=== PATIENT | female | born 1945 | race Caucasian/White ===

== ENCOUNTER 2018-01-26 21:04 | Emergency (ER) | payer MEDICARE, OTHER ==
--- NOTE | 2018-01-26 21:43 | ED ---
Fall HPI - General Chief Complaint: Fall Stated Complaint: Left hip pain Time Seen by Provider: 01/26/18 21:08 Source: patient, EMS, RN notes reviewed Mode of arrival: EMS - History of Present Illness Initial Comments: This is a 72-year-old female who presents to the emergency department with chief complaint of fall injury. Patient had a fall last week at [facility] on the [place] where patient lives. She initially complained of no pain, however since that time she has been complaining of left hip pain. They tried to take x-rays this evening but was unable to because patient has a difficult time laying flat in bed due to chronic back pain. She was referred for transfer to the emergency department for evaluation and treatment of her left hip pain. Patient did receive a [place] at 8:30 this evening. Patient currently complains of left knee and left hip pain. Has no other complaints. Denies chest pain or shortness of breath, abdominal pain, nausea or vomiting, diarrhea or constipation, headache or dizziness. - Related Data Home Medications Medication Instructions Recorded Confirmed Gabapentin [Neurontin] 300 mg PO BID 06/01/14 01/26/18 NIFEdipine [NIFEdipine ER] 120 mg PO DAILY 06/01/14 01/26/18 Levothyroxine Sodium [Synthroid] 88 mcg PO MOWEFR 06/22/14 01/26/18 Phenytoin Sodium Extended 100 mg PO BID 06/22/14 01/26/18 [Dilantin] Acetaminophen Tab [Tylenol Tab] 650 mg PO Q8H PRN 01/26/18 01/26/18 Allopurinol [Zyloprim] 100 mg PO DAILY 01/26/18 01/26/18 Ammonium Lactate Lotion 1 applic TOPICAL HS 01/26/18 01/26/18 [Lac-Hydrin 12% Lotion] Aspirin 81 mg PO DAILY 01/26/18 01/26/18 Atorvastatin Calcium [Lipitor] 40 mg PO HS 01/26/18 01/26/18 Cholecalciferol (Vitamin D3) 2,000 unit PO DAILY 01/26/18 01/26/18 [Vitamin D3] Clotrimazole/Betamethasone Dip 1 applic TOPICAL Q12H 01/26/18 01/26/18 [Lotrisone Cream] Fluticasone Propionate [Flonase 1 spray EA NOSTRIL QAM 01/26/18 01/26/18 Allergy Relief] HYDROcodone/APAP 5-325MG [[place] 1 tab PO Q24H PRN 01/26/18 01/26/18 5-325] HYDROcodone/APAP 5-325MG [[place] 1 tab PO TID 01/26/18 01/26/18 5-325] Ipratropium [place] 0.06%Nasal 2 spray EA NOSTRIL Q24H PRN 01/26/18 01/26/18 [Atrovent Nasal 0.06%] Levothyroxine Sodium [Synthroid] 100 mcg PO SUTUTHSA 01/26/18 01/26/18 Lidocaine 5% Patch [Lidoderm] 1 patch TOPICAL DAILY 01/26/18 01/26/18 Lisinopril [Prinivil] 5 mg PO DAILY 01/26/18 01/26/18 Loperamide HCl [Imodium A-D] 2 mg PO Q24H PRN 01/26/18 01/26/18 Loratadine [Claritin] 10 mg PO DAILY 01/26/18 01/26/18 Methyl Salicylate/Menthol 1 patch TOPICAL QAM 01/26/18 01/26/18 [Salonpas Patch] Miconazole Nitrate [Lotrimin AF 1 applic TOPICAL BID 01/26/18 01/26/18 Powder] [place]-3 Fatty Acids [[place]-3] 1,000 mg PO BID 01/26/18 01/26/18 Omeprazole [PriLOSEC] 20 mg PO QAM 01/26/18 01/26/18 Potassium Chloride [Klor-Con 10] 10 meq PO DAILY 01/26/18 01/26/18 Sodium Chloride [[place]] 1 spray EA NOSTRIL TID PRN 01/26/18 01/26/18 Triad Hydrophilic Wound Dress 1 applic TOPICAL Q12H 01/26/18 01/26/18 Triamterene/Hydrochlorothiazid 2 tab PO QAM 01/26/18 01/26/18 [Triamterene-Hctz 37.5-25 mg Tb] Allergies Allergy/AdvReac Type Severity Reaction Status Date / Time codeine Allergy Unknown Verified 06/22/14 14:03 Sulfa (Sulfonamide Allergy Unknown Verified 01/26/18 21:55 Antibiotics) Review of Systems ROS Statement: Those systems with pertinent positive or pertinent negative responses have been documented in the HPI. ROS Other: All systems not noted in ROS Statement are negative. Past Medical History Past Medical History: CVA/TIA, Diabetes Mellitus, Hyperlipidemia, Hypertension, Seizure Disorder History of Any Multi-Drug Resistant Organisms: None Reported Past Surgical History: Orthopedic Surgery Additional Past Surgical History / Comment(s): right hip replacement Past Psychological History: No Psychological Hx Reported Smoking Status: Never smoker Past Alcohol Use History: None Reported Past Drug Use History: None Reported General Exam - General Exam Comments Initial Comments: General: Awake and alert, well-developed; in no apparent distress. HEENT: Head atraumatic, normocephalic. Pupils are equal, round and reactive to light. Extraocular movements intact. Oropharynx moist without erythema or exudate. Neck: Supple. Normal ROM. Cardiovascular: Regular rate and rhythm. No murmurs, rubs or gallops. Chest symmetrical. Respiratory: Lungs clear to auscultation bilaterally. No wheezes, rales or rhonchi. Normal respiratory effort with no use of accessory muscles. Abdomen: Soft, non-tender, non-distended. No rigidity, rebound or guarding. Normal bowel sounds in all 4 quadrants. Musculoskeletal: Limited range of motion of the left hip. There is tenderness on palpation of anterior left hip. There is tenderness on palpation of medial knee. Pain is elicited with flexion. No swelling, erythema or obvious gross deformities. Sensation is intact. Pedal pulses are 2+ equal and palpable bilaterally. Skin: [place], warm and dry without rashes or lesions. Neurological: Alert and oriented x3. Right hemiparesis. Right lower extremity in a brace. Limitations: language barrier, physical limitation Course Vital Signs 01/26/18 21:05 Temperature 97.4 F L Pulse Rate 80 Respiratory 18 Rate Blood Pressure 131/70 O2 Sat by Pulse 98 Oximetry Medical Decision Making - Medical Decision Making This is a 72-year-old female presents to the emergency department with chief complaint of fall injury. Patient sustained a fall last week. She complains of left hip as well as left knee pain. X-rays were obtained and were negative for any acute abnormalities. Patient's vital signs are stable and she is in no acute distress. She will be discharged back to [facility] on the [place]. Findings and plan were discussed with patient and son at bedside. They are in agreement and voices understanding. All questions were answered. - Radiology Data Radiology results: report reviewed X-ray bilateral hip and AP pelvis conclusion: No acute abnormality of the pelvis and both hips. X-ray left knee impression: Chondrocalcinosis. No fracture seen. No significant joint space narrowing. Disposition Clinical Impression: Contusion of left hip, Fall Disposition: HOME SELF-CARE Condition: Good Instructions: Fall Prevention for Older Adults (ED), Hip Contusion (ED) Additional Instructions: Please follow up with primary care provider within 1-2 days. Return to emergency department if symptoms should worsen or any concerns arise. Referrals: Wil Jimenez MD [Primary Care Provider] - 1-2 days Time of Disposition: 22:48
--- NOTE | 2018-01-26 22:31 | XR ---
EXAMINATION TYPE: XR Hip Bilateral and AP pelvis DATE OF EXAM: 01/26/2018 COMPARISON: NONE HISTORY: Hip pain TECHNIQUE: 5 views FINDINGS: The pelvic ring appears intact. There is a right hip nailing noted. The proximal left femur appears i ntact. Sacroiliac joints appear normal. I see no fracture. There is mild narrowing of hip joint space s. CONCLUSION: No acute abnormality of the pelvis and both hips.
--- NOTE | 2018-01-26 22:32 | XR ---
EXAMINATION TYPE: XR knee complete LT DATE OF EXAM: 01/26/2018 COMPARISON: NONE HISTORY: Knee pain TECHNIQUE: 3 views FINDINGS: There is calcification of the medial and lateral menisci. There is no sign of joint effusio n. There is spurring on the superior anterior patella. I see no fracture. IMPRESSION: Chondrocalcinosis. No fracture seen. No significant joint space narrowing.
[2018-01-26 23:23] VITALS: BP 114/67; PULSE 71; RESP 18; TEMP 97.6
== END 2018-01-26 23:30 | disposition home or self-care (01) ==
LOC: EC 21:04 → SUPCPDRO 21:04 → EC 23:30
DX: S70.02XA Contusion of left hip, initial encounter (principal); M25.562 Pain in left knee; E78.5 Hyperlipidemia, unspecified; I10 Essential (primary) hypertension; G40.909 Epilepsy, unspecified, not intractable, without status epilepticus; Z86.73 Personal history of transient ischemic attack (TIA), and cerebral infarction without residual deficits; Z79.82 Long term (current) use of aspirin; Z79.51 Long term (current) use of inhaled steroids; Z79.52 Long term (current) use of systemic steroids; Z79.891 Long term (current) use of opiate analgesic; Z79.899 Other long term (current) drug therapy; Z88.5 Allergy status to narcotic agent; Z88.2 Allergy status to sulfonamides; W19.XXXA Unspecified fall, initial encounter; Y92.129 Unspecified place in nursing home as the place of occurrence of the external cause
CPT/HCPCS: 73521; 99283

== ENCOUNTER 2018-04-06 12:50 | Inpatient (IN) | payer MEDICARE, OTHER ==
[2018-04-06] MEDS ORDERED: PANTOPRAZOLE 40 MG/10 ML VIAL IVP STA (12:55)
[2018-04-06] MEDS ORDERED: SODIUM CHLORIDE 0.9% 1,000 ML IV STA ×2 (12:55→14:37)
--- NOTE | 2018-04-06 12:59 | ED ---
GI Bleed HPI - General Stated complaint: GI Bleed Time Seen by Provider: 04/06/18 12:54 - History of Present Illness Initial comments: Patient sent to the emergency department for weakness, syncope and GI bleed. Patient does not answer any questions secondary to chronic medical conditions and mental disability. She cannot provide any further information. EMS states only that they were called for a patient down, with GI bleed. - Related Data Home Medications Medication Instructions Recorded Confirmed Gabapentin [Neurontin] 300 mg PO BID@0900,1700 06/01/14 04/06/18 NIFEdipine [NIFEdipine ER] 120 mg PO DAILY@0906/01/14 04/06/18 Phenytoin Sodium Extended 100 mg PO BID@0900,0 06/22/14 04/06/18 [Dilantin] Acetaminophen Tab [Tylenol Tab] 650 mg PO Q8H PRN 01/26/18 04/06/18 Allopurinol [Zyloprim] 100 mg PO DAILY@0901/26/18 04/06/18 Ammonium Lactate Lotion 1 applic TOPICAL HS 01/26/18 04/06/18 [Lac-Hydrin 12% Lotion] Aspirin 81 mg PO DAILY@89901/26/18 04/06/18 Atorvastatin Calcium [Lipitor] 40 mg PO HS@2100 01/26/18 04/06/18 Cholecalciferol (Vitamin D3) 2,000 unit PO DAILY@89901/26/18 04/06/18 [Vitamin D3] Fluticasone Propionate [Flonase 1 spray EA NOSTRIL DAILY@89901/26/18 04/06/18 Allergy Relief] Ipratropium [place] 0.06%Nasal 2 spray EA NOSTRIL Q24H PRN 01/26/18 04/06/18 [Atrovent Nasal 0.06%] Levothyroxine Sodium [Synthroid] 100 mcg PO DAILY@89901/26/18 04/06/18 Lidocaine 5% Patch [Lidoderm] 1 patch TOPICAL DAILY@89901/26/18 04/06/18 Lisinopril [Prinivil] 5 mg PO DAILY@0900 01/26/18 04/06/18 Loperamide HCl [Imodium A-D] 2 mg PO Q24H PRN 01/26/18 04/06/18 Loratadine [Claritin] 10 mg PO DAILY@0900 01/26/18 04/06/18 Methyl Salicylate/Menthol 1 patch TOPICAL QAM@0900 01/26/18 04/06/18 [Salonpas Patch] Miconazole Nitrate [Lotrimin AF 1 applic TOPICAL BID 01/26/18 04/06/18 Powder] [place]-3 Fatty Acids [[place]-3] 1,000 mg PO BID@0900,2100 01/26/18 04/06/18 Omeprazole [PriLOSEC] 20 mg PO DAILY@0900 01/26/18 04/06/18 Potassium Chloride [Klor-Con 10] 10 meq PO DAILY@0900 01/26/18 04/06/18 Sodium Chloride [[place]] 1 spray EA NOSTRIL TID PRN 01/26/18 04/06/18 Triad Hydrophilic Wound Dress 1 applic TOPICAL Q12H 01/26/18 04/06/18 Triamterene/Hydrochlorothiazid 2 tab PO QAM@0900 01/26/18 04/06/18 [Triamterene-Hctz 37.5-25 mg Tb] HYDROcodone/APAP 10-325MG [[place] 1 tab PO Q8H PRN 04/06/18 04/06/18 10-325] Allergies Allergy/AdvReac Type Severity Reaction Status Date / Time codeine Allergy Unknown Verified 04/06/18 13:40 Sulfa (Sulfonamide Allergy Unknown Verified 04/06/18 13:40 Antibiotics) Review of Systems ROS Statement: Those systems with pertinent positive or pertinent negative responses have been documented in the HPI. ROS Other: All systems not noted in ROS Statement are negative. Past Medical History Past Medical History: CVA/TIA, Diabetes Mellitus, Hyperlipidemia, Hypertension, Seizure Disorder History of Any Multi-Drug Resistant Organisms: None Reported Past Surgical History: Orthopedic Surgery Additional Past Surgical History / Comment(s): right hip replacement Past Psychological History: No Psychological Hx Reported Smoking Status: Never smoker Past Alcohol Use History: None Reported Past Drug Use History: None Reported General Exam Limitations: altered mental status General appearance: alert, obese Head exam: Present: atraumatic Eye exam: Present: normal appearance ENT exam: Present: normal exam Neck exam: Present: normal inspection Respiratory exam: Present: normal lung sounds bilaterally. Absent: respiratory distress Cardiovascular Exam: Present: regular rate GI/Abdominal exam: Present: distended, tenderness Rectal exam: Present: bloody stool Extremities exam: Present: normal inspection. Absent: tenderness Back exam: Present: normal inspection Neurological exam: Present: alert Psychiatric exam: Present: agitated Skin exam: Present: warm, dry Course Vital Signs 04/06/18 04/06/18 12:52 14:14 Temperature 100.5 F H Pulse Rate 82 88 Respiratory 18 18 Rate Blood Pressure 128/60 135/71 O2 Sat by Pulse 96 97 Oximetry Medical Decision Making - Medical Decision Making Workup for this patient reveals elevated white count, evidence of UTI, evidence of GI bleed. Patient will be admitted to the hospital. I did send blood cultures, and start the patient on antibiotics. - Lab Data Result diagrams: 04/06/18 14:00 04/06/18 13:50 Lab Results 04/06/18 04/06/18 04/06/18 Range/Units 13:00 13:20 13:50 WBC (3.8-10.6) k/uL RBC (3.80-5.40) m/uL Hgb (11.4-16.0) gm/dL Hct (34.0-46.0) % MCV (80.0-100.0) fL MCH (25.0-35.0) pg MCHC (31.0-37.0) g/dL RDW (11.5-15.5) % Plt Count (150-450) k/uL Neutrophils % (Manual) % Band Neutrophils % % Lymphocytes % (Manual) % Monocytes % (Manual) % Neutrophils # (Manual) (1.3-7.7) k/uL Lymphocytes # (Manual) (1.0-4.8) k/uL Monocytes # (Manual) (0-1.0) k/uL Nucleated RBCs (0-0) /100 WBC RBC Morphology PT (9.0-12.0) sec INR (<1.2) APTT (22.0-30.0) sec Sodium 140 (137-145) mmol/L Potassium 5.1 (3.5-5.1) mmol/L Chloride 104 (98-107) mmol/L Carbon Dioxide 18 L (22-30) mmol/L Anion Gap 18 mmol/L BUN 45 H (7-17) mg/dL Creatinine 1.20 H (0.52-1.04) mg/dL Est GFR (CKD-EPI)AfAm 52 (>60 ml/min/1.73 sqM) Est GFR (CKD-EPI)NonAf 45 (>60 ml/min/1.73 sqM) Glucose 135 H (74-99) mg/dL Plasma Lactic Acid Kurt (0.7-2.0) mmol/L Calcium 9.0 (8.4-10.2) mg/dL Magnesium 1.9 (1.6-2.3) mg/dL Total Bilirubin 0.6 (0.2-1.3) mg/dL AST 51 H (14-36) U/L ALT 56 H (9-52) U/L Alkaline Phosphatase 60 (38-126) U/L Ammonia (<30) umol/L Troponin I (0.000-0.034) ng/mL Total Protein 7.0 (6.3-8.2) g/dL Albumin 4.1 (3.5-5.0) g/dL Lipase 69 (23-300) U/L Urine Color Dark Yellow Urine Appearance Turbid H (Clear) Urine pH 5.0 (5.0-8.0) Ur Specific [place] 1.019 (1.001-1.035) Urine Protein 1+ H (Negative) Urine Glucose (UA) Negative (Negative) Urine Ketones Trace H (Negative) Urine Blood Moderate H (Negative) Urine Nitrite Negative (Negative) Urine Bilirubin 1+ H (Negative) Urine Urobilinogen 4.0 (<2.0) mg/dL Ur Leukocyte Esterase Large H (Negative) Urine WBC 157 H (0-5) /hpf Urine WBC Clumps Many H (None) /hpf Ur Squamous Epith Cells 8 H (0-4) /hpf Urine Bacteria Moderate H (None) /hpf Hyaline Casts 7 H (0-2) /lpf Urine Mucus Rare H (None) /hpf Stool Occult Blood Positive H (Negative) 04/06/18 04/06/18 04/06/18 Range/Units 13:50 14:00 14:00 WBC 20.9 H (3.8-10.6) k/uL RBC 4.92 (3.80-5.40) m/uL Hgb 15.0 (11.4-16.0) gm/dL Hct 46.2 H (34.0-46.0) % MCV 93.8 (80.0-100.0) fL MCH 30.5 (25.0-35.0) pg MCHC 32.6 (31.0-37.0) g/dL RDW 13.5 (11.5-15.5) % Plt Count 149 L (150-450) k/uL Neutrophils % (Manual) 63 % Band Neutrophils % 13 % Lymphocytes % (Manual) 6 % Monocytes % (Manual) 18 % Neutrophils # (Manual) 15.80 H (1.3-7.7) k/uL Lymphocytes # (Manual) 1.25 (1.0-4.8) k/uL Monocytes # (Manual) 3.76 H (0-1.0) k/uL Nucleated RBCs 0 (0-0) /100 WBC RBC Morphology Normal PT 10.0 (9.0-12.0) sec INR 1.0 (<1.2) APTT 20.5 L (22.0-30.0) sec Sodium (137-145) mmol/L Potassium (3.5-5.1) mmol/L Chloride (98-107) mmol/L Carbon Dioxide (22-30) mmol/L Anion Gap mmol/L BUN (7-17) mg/dL Creatinine (0.52-1.04) mg/dL Est GFR (CKD-EPI)AfAm (>60 ml/min/1.73 sqM) Est GFR (CKD-EPI)NonAf (>60 ml/min/1.73 sqM) Glucose (74-99) mg/dL Plasma Lactic Acid [place] (0.7-2.0) mmol/L Calcium (8.4-10.2) mg/dL Magnesium (1.6-2.3) mg/dL Total Bilirubin (0.2-1.3) mg/dL AST (14-36) U/L ALT (9-52) U/L Alkaline Phosphatase (38-126) U/L Ammonia (<30) umol/L Troponin I 1.050 H* (0.000-0.034) ng/mL Total Protein (6.3-8.2) g/dL Albumin (3.5-5.0) g/dL Lipase (23-300) U/L Urine Color Urine Appearance (Clear) Urine pH (5.0-8.0) Ur Specific [place] (1.001-1.035) Urine Protein (Negative) Urine Glucose (UA) (Negative) Urine Ketones (Negative) Urine Blood (Negative) Urine Nitrite (Negative) Urine Bilirubin (Negative) Urine Urobilinogen (<2.0) mg/dL Ur Leukocyte Esterase (Negative) Urine WBC (0-5) /hpf Urine WBC Clumps (None) /hpf Ur Squamous Epith Cells (0-4) /hpf Urine Bacteria (None) /hpf Hyaline Casts (0-2) /lpf Urine Mucus (None) /hpf Stool Occult Blood (Negative) 04/06/18 Range/Units 14:00 WBC (3.8-10.6) k/uL RBC (3.80-5.40) m/uL Hgb (11.4-16.0) gm/dL Hct (34.0-46.0) % MCV (80.0-100.0) fL MCH (25.0-35.0) pg MCHC (31.0-37.0) g/dL RDW (11.5-15.5) % Plt Count (150-450) k/uL Neutrophils % (Manual) % Band Neutrophils % % Lymphocytes % (Manual) % Monocytes % (Manual) % Neutrophils # (Manual) (1.3-7.7) k/uL Lymphocytes # (Manual) (1.0-4.8) k/uL Monocytes # (Manual) (0-1.0) k/uL Nucleated RBCs (0-0) /100 WBC RBC Morphology PT (9.0-12.0) sec INR (<1.2) APTT (22.0-30.0) sec Sodium (137-145) mmol/L Potassium (3.5-5.1) mmol/L Chloride (98-107) mmol/L Carbon Dioxide (22-30) mmol/L Anion Gap mmol/L BUN (7-17) mg/dL Creatinine (0.52-1.04) mg/dL Est GFR (CKD-EPI)AfAm (>60 ml/min/1.73 sqM) Est GFR (CKD-EPI)NonAf (>60 ml/min/1.73 sqM) Glucose (74-99) mg/dL Plasma Lactic Acid [place] 3.0 H* (0.7-2.0) mmol/L Calcium (8.4-10.2) mg/dL Magnesium (1.6-2.3) mg/dL Total Bilirubin (0.2-1.3) mg/dL AST (14-36) U/L ALT (9-52) U/L Alkaline Phosphatase (38-126) U/L Ammonia 15 (<30) umol/L Troponin I (0.000-0.034) ng/mL Total Protein (6.3-8.2) g/dL Albumin (3.5-5.0) g/dL Lipase (23-300) U/L Urine Color Urine Appearance (Clear) Urine pH (5.0-8.0) Ur Specific [place] (1.001-1.035) Urine Protein (Negative) Urine Glucose (UA) (Negative) Urine Ketones (Negative) Urine Blood (Negative) Urine Nitrite (Negative) Urine Bilirubin (Negative) Urine Urobilinogen (<2.0) mg/dL Ur Leukocyte Esterase (Negative) Urine WBC (0-5) /hpf Urine WBC Clumps (None) /hpf Ur Squamous Epith Cells (0-4) /hpf Urine Bacteria (None) /hpf Hyaline Casts (0-2) /lpf Urine Mucus (None) /hpf Stool Occult Blood (Negative) Disposition Clinical Impression: UTI (urinary tract infection), GI bleed Disposition: ADMITTED IP [facility] Condition: Serious Is patient prescribed a controlled substance at d/c from ED?: No Referrals: Wil Jimenez MD [Primary Care Provider] - 1-2 days
[2018-04-06] MEDS ORDERED: ACETAMINOPHEN SUPPOSITORY 650 MG SUPP RECTAL STA (13:06)
[2018-04-06 14:00] LABS: Appearance,Urine Turbid (Clear); Bacteria,Urine Moderate /hpf; Bilirubin,Urine 1+ (Negative); Blood,Urine Moderate (Negative); Color,Urine Dark Yellow; Glucose,Urine (UA) Negative (Negative); Hyaline Casts,Urine 7 /lpf (0-2); Ketones,Urine Trace (Negative); Leukocyte Esterase,Urine Large (Negative); Mucus,Urine Rare /hpf; Nitrite,Urine Negative (Negative); Protein,Urine 1+ (Negative); Specific Gravity,Urine 1.019 (1.001-1.035); Squamous Epithelial Cell,Urine 8 /hpf (0-4); WBC,Urine 157 /hpf (0-5)
[2018-04-06 14:18] LABS: HCT 46.2 % (34.0-46.0); MCH 30.5 pg (25.0-35.0); MCHC 32.6 g/dL (31.0-37.0); MCV 93.8 fL (80.0-100.0); Mean Platelet Volume 7.9; Platelet Count 149 k/uL (150-450); RBC 4.92 m/uL (3.80-5.40); RDW 13.5 % (11.5-15.5); WBC 20.9 k/uL (3.8-10.6)
--- NOTE | 2018-04-06 14:20 | XR ---
EXAMINATION TYPE: XR chest 1V portable DATE OF EXAM: 04/06/2018 COMPARISON: NONE HISTORY: Altered mental status, gastrointestinal bleeding TECHNIQUE: Single frontal view of the chest is obtained. FINDINGS: Patient is rotated. Lung volumes are low. Heart is enlarged. No evident airspace disease, pneumothorax, or pleural effusion. There are overlying cardiac leads. IMPRESSION: Rotated expiratory exam. Cardiomegaly. Follow-up as indicated.
[2018-04-06] MEDS: cefTRIAXone IN SWFI 1,000 MG/10 ML SYRINGE IVP SCH (14:24)
[2018-04-06 14:31] LABS: Albumin 4.1 g/dL (3.5-5.0); Magnesium 1.9 mg/dL (1.6-2.3); Total Bilirubin 0.6 mg/dL (0.2-1.3)
[2018-04-06 14:40] LABS: Potassium 5.1 mmol/L (3.5-5.1)
[2018-04-06 14:43] LABS: Band Neutrophils % 13 %; Lymphocytes # (M) 1.25 k/uL (1.0-4.8); Monocytes # (M) 3.76 k/uL (0-1.0); Neutrophils % (M) 63 %; Nucleated Red Blood Cells 0 /100 WBC (0-0); Total Cells Counted 100
[2018-04-06 14:46] LABS: Partial Thromboplastin Time 20.5 sec (22.0-30.0)
[2018-04-06] MEDS ORDERED: NALOXONE 0.4 MG/ML 1 ML VIAL IV PRN (15:08)
[2018-04-06] MEDS ORDERED: IPRATROPIUM BROMIDE 0.06% NASAL SPRAY (15 ML) EA NOSTRIL PRN (15:09)
--- NOTE | 2018-04-06 15:21 | CT ---
EXAMINATION TYPE: CT abdomen pelvis w con DATE OF EXAM: 04/06/2018 COMPARISON: NONE INDICATION: Per patient's chart, GI bleed. Poor historian. DLP: 1828 mGycm, Automated exposure control for dose reduction was used. CONTRAST: 80ml mL of Isovue 300. Study performed without Oral Contrast TECHNIQUE: Axial images were obtained from above the diaphragm to the pubic rami in the axial plane a t 5 mm thick sections. Reconstructed images are reviewed on the computer in the coronal plane. FINDINGS: Limited CT sections are obtained the lung bases. The lung bases are clear. Cardiomegaly is present. Small hiatal hernia is present. CT ABDOMEN: Liver: Normal Spleen: Normal Pancreas: Normal Adrenal glands: The adrenal glands are normal. Gallbladder: Normal Kidneys: No masses are evident. No hydronephrosis is present. No cysts are present. Delayed images were obtained through the kidneys, which remain unremarkable. Aorta: Vascular calcification is within the aorta. Inferior vena cava: Normal. CT PELVIS: Loops of bowel within the abdomen and pelvis are normal. Studies performed without oral contrast limiting the evaluation. Appendix: Not identified Urinary bladder: There is a 0.9 cm nodule within the posterior lateral right urinary bladder. Follow- up is recommended. Genitourinary structures: Uterus is normal. Adnexal regions are unremarkable Osseous structures: No suspicious lytic or sclerotic lesions. There is a lucency within the anterior left femoral neck may be a cyst. There is a hip pin on the right. Facet degenerative changes are at t he lumbar spine. IMPRESSIONS: 1. Possible nodule within the posterior lateral right urinary bladder. Additional evaluation is roberto mmended. Consider ultrasound. 2. Small hiatal hernia
[2018-04-06 17:09] LABS: Glucose,Whole Blood 117 mg/dL (75-99)
[2018-04-06] MEDS: PHENYTOIN SODIUM EXTENDED 100 MG CAP PO SCH (18:19)
[2018-04-06] MEDS: GABAPENTIN 300 MG CAP PO SCH (18:19)
[2018-04-06] MEDS: SODIUM CHLORIDE 0.9% 1,000 ML IV SCH (20:42)
[2018-04-06] MEDS: HYDROcodone/APAP 10-325MG 1 EACH TAB PO PRN (20:47)
[2018-04-06] MEDS: ATORVASTATIN 40 MG TAB PO SCH (20:47)
[2018-04-06] MEDS: AMMONIUM LACTATE 12% LOTION 225 GM BTL TOPICAL SCH (20:48)
[2018-04-06] MEDS: NYSTATIN 100,000 UNIT/GM POWD 15 GM TOPICAL SCH (20:49)
[2018-04-06 20:56] LABS: Glucose,Whole Blood 126 mg/dL (75-99)
[2018-04-07] MEDS: HYDROcodone/APAP 10-325MG 1 EACH TAB PO PRN ×3 (04:31→16:05)
--- NOTE | 2018-04-07 05:41 | HP ---
HISTORY AND PHYSICAL DATE OF ADMISSION: 04/06/2018 DATE OF SERVICE: 04/06/2018 PRESENTING COMPLAINT: Lower GI bleed. HISTORY OF PRESENTING COMPLAINT: This is a 73-year-old patient, resident of [facility], brought in by the EMS. The patient's chronic stable medical conditions include diabetes, GERD, hypertension, hyperlipidemia, seizure disorder, thyroid disorder. The patient has got a baseline dysarthria, , paralyzed on the right side. The patient is incontinent of both urine and stool and patient assist. The patient was sent in today because of bright red blood from rectal. No obvious abdominal pain. Patient is a resident of [facility]. Hence, patient was brought in. Like stated patient can only answer some simple questions, difficult to understand because of dysarthria. REVIEW OF SYSTEMS: Difficult to do because of dysarthria. PAST MEDICAL HISTORY: Stroke, diabetes, GERD, hyperlipidemia, hypertension, kidney disease, rheumatoid arthritis, seizure disorder, hypothyroid, weak on the right side, right ear tinnitus, wears Depends because of incontinence of urine and stool, gout, vitamin D deficiency, low back pain peripheral neuropathy, dysarthria. PAST SURGICAL HISTORY: Orthopedic surgery, tonsillectomy, right hip replacement, D and C. SOCIAL HISTORY: Lives at [facility], two person assist, some expressive dysphasia. Able to use a picture board. No smoking. No alcohol. FAMILY HISTORY: Family history of rheumatoid arthritis. HOME MEDICATIONS: 1. Triamterene hydrochlorothiazide 37.5/25 two tablets p.o. daily. 2. Triad hydrophilic wound dress topical q.12. 3. [place] 1 spray each nostril t.i.d. p.r.n. 4. Potassium 10 mEq p.o. daily. 5. Dilantin 100 mg p.o. b.i.d. 6. Prilosec 20 mg p.o. daily. 7. [place]-3 1000 mg p.o. b.i.d. 8. Nifedipine ER 120 mg p.o. daily. 9. Lotrimin AF topical b.i.d. 10.Salonpas patch topical daily. 11.Claritin 10 mg p.o. daily. 12.Loperamide 2 mg q.24. 13.Prinivil 5 mg p.o. daily. 14.Lidocaine 5% patch topically daily. 15.Synthroid 100 mcg p.o. daily. 16.Atrovent nasal 2 sprays each nostril q.24 hour. 17.[place] 10 one tablet q.8 p.r.n. 18.Neurontin 300 mg p.o. b.i.d. 19.Flonase 1 spray each nostril daily. 20.Vitamin D3, 2000 units p.o. daily. 21.Lipitor 40 mg p.o. q.h.s. 22.Aspirin 81 mg p.o. daily. 23.Lac-Hydrin 12% topical at bedtime. 24.Allopurinol 100 mg p.o. daily. 25.Tylenol 650 mg q.8 p.r.n. ALLERGIES: Allergies to CODEINE and SULFA. PHYSICAL EXAMINATION: On examination, temperature 101.9, pulse 92, respiration 18, blood pressure 136/58, pulse ox 96% on room air. GENERAL APPEARANCE: Well built, BMI 34, lying in bed. EYES: Pupils equal. Conjunctivae normal. HENT: External appearance of nose and ears normal. Oral cavity normal. NECK: JVD unable to assess. Mass not palpable. RESPIRATORY: Effort normal. LUNGS: Fair entry. CARDIOVASCULAR: First and second sounds normal. No edema. ABDOMEN: Soft, nontender. Liver and spleen not palpable. LYMPHATIC: No lymph node palpable in the next or axillae. PSYCHIATRY: Unable to assess. NEUROLOGICAL: Patient is dysarthric, difficulty finding words. Power on the right side is 4/5 with some contracture. INVESTIGATIONS: White count 20.9, hemoglobin 15. BUN 45, creatinine 1.20. Troponin 1.050. UA positive for leukocyte esterase, WBC. ASSESSMENT: 1. Acute urinary tract infection with sepsis, present on admission. 2. Lactic acidosis. 3. Dehydration with acute renal failure. 4. Acute lower gastrointestinal bleed. 5. Right hemiparesis from prior stroke. 6. Chronic expressive dysphasia. 7. Diabetes mellitus type 2. 8. Gastroesophageal reflux disease. 9. Hyperlipidemia. 10.Essential hypertension. 11.Chronic kidney disease, probably stage II. 12.Seizure disorder. 13.Hypothyroidism. 14.Medical debility, patient is a 2-person assist. 15.Osteoarthritis. PLAN: Patient is put on IV ceftriaxone. Home medications are resumed. GI is being consulted. The patient needs assistance with feeding and aspiration precautions. CT scan of the abdomen and pelvis nonspecific. Chest x-ray some cardiomegaly. MMODL / IJN: [id number] /
[2018-04-07 05:52] LABS: Glucose,Whole Blood 126 mg/dL (75-99)
[2018-04-07 07:15] LABS: Basophils % (A) 0 %; Eosinophils # (A) 0.1 k/uL (0-0.7); Eosinophils % (A) 1 %; HCT 40.4 % (34.0-46.0); HGB 13.1 gm/dL (11.4-16.0); Lymphocytes % (A) 7 %; MCH 31.3 pg (25.0-35.0); MCHC 32.4 g/dL (31.0-37.0); MCV 96.5 fL (80.0-100.0); Mean Platelet Volume 7.4; Monocytes % (A) 8 %; Neutrophils # (A) 11.5 k/uL (1.3-7.7); Neutrophils % (A) 83 %; Platelet Count 122 k/uL (150-450); RBC 4.19 m/uL (3.80-5.40); RDW 13.8 % (11.5-15.5); WBC 13.9 k/uL (3.8-10.6)
[2018-04-07 07:17] LABS: Calcium 8.6 mg/dL (8.4-10.2); Potassium 3.5 mmol/L (3.5-5.1)
[2018-04-07] MEDS ORDERED: TRIAMTERENE-HCTZ 37.5-25MG 1 EACH TAB PO SCH (09:00)
[2018-04-07] MEDS: SODIUM CHLORIDE 0.9% 1,000 ML IV SCH ×2 (09:13→23:13)
[2018-04-07] MEDS: NYSTATIN 100,000 UNIT/GM POWD 15 GM TOPICAL SCH ×2 (09:14→21:45)
[2018-04-07] MEDS: FLUTICASONE 50MCG/SPRAY NASAL 16GM EA NOSTRIL SCH (09:15)
[2018-04-07] MEDS: GABAPENTIN 300 MG CAP PO SCH ×2 (09:15→15:53)
[2018-04-07] MEDS: ALLOPURINOL 100 MG TAB PO SCH (09:15)
[2018-04-07] MEDS: LORATADINE 10 MG TAB PO SCH (09:15)
[2018-04-07] MEDS: LISINOPRIL 5 MG TAB PO SCH (09:16)
[2018-04-07] MEDS: LIDOCAINE 5% PATCH TOPICAL SCH (09:16)
[2018-04-07] MEDS: PANTOPRAZOLE 40 MG/10 ML VIAL IV SCH (09:17)
[2018-04-07] MEDS: LEVOTHYROXINE 100 MCG TAB PO SCH (09:18)
[2018-04-07] MEDS: PHENYTOIN SODIUM EXTENDED 100 MG CAP PO SCH ×2 (09:19→15:53)
--- NOTE | 2018-04-07 09:38 | P.CONS ---
History of Present Illness - Reason for Consult Consult date: 04/07/18 rectal bleeding Requesting physician: Krystian Orr - History of Present Illness History obtained from medical records nursing physician staff. 73-year-old female with a history of GERD, seizure disorder, hypertension, incontinent of urine and stool requires diaper, stroke hematemesis admitted from [facility] with reports of rectal bleeding. Admission hemoglobin 15 presently 13.1. White count 20.9 presently 13.9. INR 1.0. BUN 45. Creatinine 1.2. Troponin 1.0. Lactic acid 3.0 with hydration repeated decreased to 2.7. UA large leukocyte esterase and moderate blood many wbc's moderate bacteria. Hemoccult stool positive. CT abdomen possible nodule posterior lateral urinary bladder. Small hiatal hernia. ECF medications reviewed Prilosec 20 mg daily, baby aspirin, Imodium as needed. Review of Systems Unable to assess medical records reviewed for information Constitutional: Denies fever, chills, sweats, weight gain, or loss. HEENT: Negative for migraines, blurred vision or loss, earaches, drainage, tinnitus, oral mucosal lesions, dysphagia, or odynophagia. CARDIAC: Negative for chest pain, arrhythmias, or palpitation. RESPIRATORY: Negative for shortness of breath, hemoptysis, cough, or sputum production. GI: See HPI for pertinent findings. : Negative for hematuria, urgency, frequency, polyuria, or dysuria. GYNc: Negative vaginal discharge. MUSCULOSKELETAL: Negative for muscle aches, swelling, arthritis, and arthralgias. NEUROLOGIC: History of CVA. ENDOCRINE: Negative for thyroid problems. SKIN: Negative for rash or itching. PSYCHIATRIC: Negative history for depression and anxiety Past Medical History Past Medical History: CVA/TIA, Diabetes Mellitus, GERD/Reflux, Hyperlipidemia, Hypertension, Renal Disease, Rheumatoid Arthritis (RA), Seizure Disorder, Thyroid Disorder Additional Past Medical History / Comment(s): since stroke, pt is able to comprehend what is being said but has difficulty conveying an answer(expressive apasia. rt ear tinnitus son stated she is paralized on dominant rt side but able to write some with her lt hand, wears depends is incon of urine and stool, (pt needs 2 to assist w/transfer to w/c wears brace for rt foot drop and rt arm brace. allergic rhinnitus,gout, vit d deficiency,low back pain,past kidney stones,neuropathy, wounds to buttocks/upper thigh, falls.son stated that after pt lost weight does'nt thinks he takes any oral meds for dm anymore. son not sure if pt had pne vaccine, called [facility] but they stated their computer system was down at time of this admit write unable to verify date.. History of Any Multi-Drug Resistant Organisms: None Reported Past Surgical History: Orthopedic Surgery, Tonsillectomy Additional Past Surgical History / Comment(s): right hip replacement, d&c, colonoscopy Past Anesthesia/Blood Transfusion Reactions: No Reported Reaction Smoking Status: Never smoker - Past Family History Mother Family Medical History: Pneumonia, Rheumatoid Arthritis (RA) Additional Family Medical History / Comment(s): from complications of pne at age 56 Father Family Medical History: Congestive Heart Failure (CHF), Diabetes Mellitus Additional Family Medical History / Comment(s): at age 63 Medications and Allergies Home Medications Medication Instructions Recorded Confirmed Type Gabapentin [Neurontin] 300 mg PO BID@0900,1700 06/01/14 04/06/18 History NIFEdipine [NIFEdipine ER] 120 mg PO DAILY@0900 06/01/14 04/06/18 History Phenytoin Sodium Extended 100 mg PO BID@0900,1700 06/22/14 04/06/18 History [Dilantin] Acetaminophen Tab [Tylenol Tab] 650 mg PO Q8H PRN 01/26/18 04/06/18 History Allopurinol [Zyloprim] 100 mg PO DAILY@0900 01/26/18 04/06/18 History Ammonium Lactate Lotion 1 applic TOPICAL HS 01/26/18 04/06/18 History [Lac-Hydrin 12% Lotion] Aspirin 81 mg PO DAILY@0900 01/26/18 04/06/18 History Atorvastatin Calcium [Lipitor] 40 mg PO HS@2100 01/26/18 04/06/18 History Cholecalciferol (Vitamin D3) 2,000 unit PO DAILY@89901/26/18 04/06/18 History [Vitamin D3] Fluticasone Propionate [Flonase 1 spray EA NOSTRIL DAILY@0900 01/26/18 04/06/18 History Allergy Relief] Ipratropium [place] 0.06%Nasal 2 spray EA NOSTRIL Q24H PRN 01/26/18 04/06/18 History [Atrovent Nasal 0.06%] Levothyroxine Sodium [Synthroid] 100 mcg PO DAILY@0900 01/26/18 04/06/18 History Lidocaine 5% Patch [Lidoderm] 1 patch TOPICAL DAILY@0900 01/26/18 04/06/18 History Lisinopril [Prinivil] 5 mg PO DAILY@0901/26/18 04/06/18 History Loperamide HCl [Imodium A-D] 2 mg PO Q24H PRN 01/26/18 04/06/18 History Loratadine [Claritin] 10 mg PO DAILY@0900 01/26/18 04/06/18 History Methyl Salicylate/Menthol 1 patch TOPICAL QAM@89901/26/18 04/06/18 History [Salonpas Patch] Miconazole Nitrate [Lotrimin AF 1 applic TOPICAL BID 01/26/18 04/06/18 History Powder] [place]-3 Fatty Acids [[place]-3] 1,000 mg PO BID@0900,2100 01/26/18 04/06/18 History Omeprazole [PriLOSEC] 20 mg PO DAILY@0900 01/26/18 04/06/18 History Potassium Chloride [Klor-Con 10] 10 meq PO DAILY@89901/26/18 04/06/18 History Sodium Chloride [[place]] 1 spray EA NOSTRIL TID PRN 01/26/18 04/06/18 History Triad Hydrophilic Wound Dress 1 applic TOPICAL Q12H 01/26/18 04/06/18 History Triamterene/Hydrochlorothiazid 2 tab PO QAM@89901/26/18 04/06/18 History [Triamterene-Hctz 37.5-25 mg Tb] HYDROcodone/APAP 10-325MG [[place] 1 tab PO Q8H PRN 04/06/18 04/06/18 History 10-325] Allergies Allergy/AdvReac Type Severity Reaction Status Date / Time codeine Allergy Unknown Verified 04/06/18 13:40 Sulfa (Sulfonamide Allergy Unknown Verified 04/06/18 13:40 Antibiotics) Physical Exam Vitals: Vital Signs Temp Pulse Pulse Resp BP BP Pulse Ox 04/07/18 04:00 99.2 F 88 16 144/71 91 L 04/07/18 00:00 100.8 F H 95 16 132/62 92 L 04/06/18 20:00 100.8 F H 94 16 142/63 95 04/06/18 18:29 91 16 04/06/18 17:11 99.1 F 91 16 119/59 94 L 04/06/18 16:10 99.1 F 90 18 124/58 96 04/06/18 15:20 101.9 F H 92 18 136/58 96 04/06/18 14:14 88 18 135/71 97 04/06/18 12:52 100.5 F H 82 18 128/60 96 Intake and Output 04/06/18 04/07/18 04/07/18 22:59 06:59 14:59 Intake Total 840 600 Balance 840 600 Intake: IV 600 600 Sodium Chloride 0.9% 1, 600 600 000 ml @ 75 mls/hr IV . [id number] FARHANA Rx#:[id number] Oral 240 Other: Voiding Method Diaper Diaper # Voids 1 Weight 82 kg General appearance: The patient is alert, combative when moved or assessed screams loudly. Dysarthria. HET: Head is normocephalic and atraumatic. Pupils are equal and reactive. Oropharynx is clear without lesions. Neck: Supple without lymphadenopathy. Trachea midline. Heart: S1 S2. Regular rate and rhythm. Lungs: No crackles or wheezes are heard. Abdomen: Soft, nontender, nondistended with bowel sounds. No peritoneal signs. No palpable organomegaly or masses. Extremities: Excoriated perirectal coccyx region with superficial wounds. Neurological: Right hemophoresis or emesis. Rectal: Edematous anal orifice with serosanguineous drainage. No obvious rectal prolapse. No mele blood. No melena. Patient was not compliant with exam combative; limited exam no palpable rectal masses possible internal hemorrhoids fissure appearance near 12 o'clock position. Diaper saturated with dark colored urine possible component of hematuria. Results CBC & Chem 7: 04/07/18 06:37 04/07/18 06:37 Labs: Abnormal Lab Results - Last 24 Hours (Table) 04/06/18 04/06/18 04/06/18 Range/Units 13:00 13:20 13:50 WBC (3.8-10.6) k/uL Hct (34.0-46.0) % Plt Count (150-450) k/uL Neutrophils # (1.3-7.7) k/uL Neutrophils # (Manual) (1.3-7.7) k/uL Monocytes # (Manual) (0-1.0) k/uL APTT (22.0-30.0) sec Chloride (98-107) mmol/L Carbon Dioxide 18 L (22-30) mmol/L BUN 45 H (7-17) mg/dL Creatinine 1.20 H (0.52-1.04) mg/dL Glucose 135 H (74-99) mg/dL POC Glucose (mg/dL) (75-99) mg/dL Plasma Lactic Acid Kurt (0.7-2.0) mmol/L AST 51 H (14-36) U/L ALT 56 H (9-52) U/L Troponin I (0.000-0.034) ng/mL Urine Appearance Turbid H (Clear) Urine Protein 1+ H (Negative) Urine Ketones Trace H (Negative) Urine Blood Moderate H (Negative) Urine Bilirubin 1+ H (Negative) Ur Leukocyte Esterase Large H (Negative) Urine WBC 157 H (0-5) /hpf Urine WBC Clumps Many H (None) /hpf Ur Squamous Epith Cells 8 H (0-4) /hpf Urine Bacteria Moderate H (None) /hpf Hyaline Casts 7 H (0-2) /lpf Urine Mucus Rare H (None) /hpf Stool Occult Blood Positive H (Negative) 04/06/18 04/06/18 04/06/18 Range/Units 13:50 14:00 14:00 WBC 20.9 H (3.8-10.6) k/uL Hct 46.2 H (34.0-46.0) % Plt Count 149 L (150-450) k/uL Neutrophils # (1.3-7.7) k/uL Neutrophils # (Manual) 15.80 H (1.3-7.7) k/uL Monocytes # (Manual) 3.76 H (0-1.0) k/uL APTT 20.5 L (22.0-30.0) sec Chloride (98-107) mmol/L Carbon Dioxide (22-30) mmol/L BUN (7-17) mg/dL Creatinine (0.52-1.04) mg/dL Glucose (74-99) mg/dL POC Glucose (mg/dL) (75-99) mg/dL Plasma Lactic Acid Kurt (0.7-2.0) mmol/L AST (14-36) U/L ALT (9-52) U/L Troponin I 1.050 H* (0.000-0.034) ng/mL Urine Appearance (Clear) Urine Protein (Negative) Urine Ketones (Negative) Urine Blood (Negative) Urine Bilirubin (Negative) Ur Leukocyte Esterase (Negative) Urine WBC (0-5) /hpf Urine WBC Clumps (None) /hpf Ur Squamous Epith Cells (0-4) /hpf Urine Bacteria (None) /hpf Hyaline Casts (0-2) /lpf Urine Mucus (None) /hpf Stool Occult Blood (Negative) 04/06/18 04/06/18 04/06/18 Range/Units 14:00 16:58 17:50 WBC (3.8-10.6) k/uL Hct (34.0-46.0) % Plt Count (150-450) k/uL Neutrophils # (1.3-7.7) k/uL Neutrophils # (Manual) (1.3-7.7) k/uL Monocytes # (Manual) (0-1.0) k/uL APTT (22.0-30.0) sec Chloride (98-107) mmol/L Carbon Dioxide (22-30) mmol/L BUN (7-17) mg/dL Creatinine (0.52-1.04) mg/dL Glucose (74-99) mg/dL POC Glucose (mg/dL) 117 H (75-99) mg/dL Plasma Lactic Acid Kurt 3.0 H* 2.7 H* (0.7-2.0) mmol/L AST (14-36) U/L ALT (9-52) U/L Troponin I (0.000-0.034) ng/mL Urine Appearance (Clear) Urine Protein (Negative) Urine Ketones (Negative) Urine Blood (Negative) Urine Bilirubin (Negative) Ur Leukocyte Esterase (Negative) Urine WBC (0-5) /hpf Urine WBC Clumps (None) /hpf Ur Squamous Epith Cells (0-4) /hpf Urine Bacteria (None) /hpf Hyaline Casts (0-2) /lpf Urine Mucus (None) /hpf Stool Occult Blood (Negative) 04/06/18 04/07/18 04/07/18 Range/Units 20:54 05:51 06:37 WBC 13.9 H (3.8-10.6) k/uL Hct (34.0-46.0) % Plt Count 122 L (150-450) k/uL Neutrophils # 11.5 H (1.3-7.7) k/uL Neutrophils # (Manual) (1.3-7.7) k/uL Monocytes # (Manual) (0-1.0) k/uL APTT (22.0-30.0) sec Chloride (98-107) mmol/L Carbon Dioxide (22-30) mmol/L BUN (7-17) mg/dL Creatinine (0.52-1.04) mg/dL Glucose (74-99) mg/dL POC Glucose (mg/dL) 126 H 126 H (75-99) mg/dL Plasma Lactic Acid Kurt (0.7-2.0) mmol/L AST (14-36) U/L ALT (9-52) U/L Troponin I (0.000-0.034) ng/mL Urine Appearance (Clear) Urine Protein (Negative) Urine Ketones (Negative) Urine Blood (Negative) Urine Bilirubin (Negative) Ur Leukocyte Esterase (Negative) Urine WBC (0-5) /hpf Urine WBC Clumps (None) /hpf Ur Squamous Epith Cells (0-4) /hpf Urine Bacteria (None) /hpf Hyaline Casts (0-2) /lpf Urine Mucus (None) /hpf Stool Occult Blood (Negative) 04/07/18 Range/Units 06:37 WBC (3.8-10.6) k/uL Hct (34.0-46.0) % Plt Count (150-450) k/uL Neutrophils # (1.3-7.7) k/uL Neutrophils # (Manual) (1.3-7.7) k/uL Monocytes # (Manual) (0-1.0) k/uL APTT (22.0-30.0) sec Chloride 108 H (98-107) mmol/L Carbon Dioxide 18 L (22-30) mmol/L BUN 32 H (7-17) mg/dL Creatinine (0.52-1.04) mg/dL Glucose 124 H (74-99) mg/dL POC Glucose (mg/dL) (75-99) mg/dL Plasma Lactic Acid Kurt (0.7-2.0) mmol/L AST (14-36) U/L ALT (9-52) U/L Troponin I (0.000-0.034) ng/mL Urine Appearance (Clear) Urine Protein (Negative) Urine Ketones (Negative) Urine Blood (Negative) Urine Bilirubin (Negative) Ur Leukocyte Esterase (Negative) Urine WBC (0-5) /hpf Urine WBC Clumps (None) /hpf Ur Squamous Epith Cells (0-4) /hpf Urine Bacteria (None) /hpf Hyaline Casts (0-2) /lpf Urine Mucus (None) /hpf Stool Occult Blood (Negative) Assessment and Plan (1) Rectal bleeding Narrative/Plan: Without anemia. Possible proctitis possible colitis. Evidence of perirectal anal excoriation fissure appearance with suspected internal hemorrhoids patient was not cooperative with rectal exam screaming and resisting with staff. Difficult to exclude rectal mass however CT abdomen and pelvis reported no evidence of rectal pathology. No mele blood on exam mostly pink serosanguinous rectal drainage possible hematuria. Current Visit: Yes Status: Acute Code(s): K62.5 - HEMORRHAGE OF ANUS AND RECTUM SNOMED Code(s): 71893507 (2) CVA, old, hemiparesis Current Visit: Yes Status: Acute Code(s): I69.359 - HEMIPLGA FOLLOWING CEREBRAL INFARCTION AFFECTING UNSP SIDE SNOMED Code(s): 524935673 (3) UTI (urinary tract infection) Current Visit: Yes Status: Acute Code(s): N39.0 - URINARY TRACT INFECTION, SITE NOT SPECIFIED SNOMED Code(s): 63510429 Plan: 1. Local perirectal care. Case was discussed with Dr. Orr he requested surgical consult to evaluate perianal region. 2. Inpatient endoscopy flex sigmoid/anoscopy not planned at this time but contingent on clinical course. Patient most likely will not comply or tolerate bowel prep for full colonoscopy. 3. Will obtain CEA marker. 4. Light liquid diet as tolerated. 5. CBC monitoring. 6. Will review office records for history of colonoscopy. Thank you for this kind referral and the opportunity to participate in the care of your patient. This consultation was discussed with Dr. Moise. The impression and plan of care have been directed as dictated.
[2018-04-07 12:05] LABS: Glucose,Whole Blood 103 mg/dL (75-99)
[2018-04-07] MEDS: cefTRIAXone IN SWFI 1,000 MG/10 ML SYRINGE IVP SCH (15:59)
[2018-04-07 17:25] LABS: Glucose,Whole Blood 98 mg/dL (75-99)
--- NOTE | 2018-04-07 17:28 | P.GSCN ---
History of Present Illness Consult date: 04/07/18 Reason for Consult: Rectal bleeding History of present illness: Patient came to the hospital with weakness, GI bleed, and possible syncopal episodes. A she has a history of previous CVA and is a phasic. She apparently has had witnessed mucousy bloody stools. These are small in volume. GI saw this patient earlier today and was concerned about either a fissure or possible hemorrhoids. Patient was not very compliant with the exam. Unclear if the patient has had prior endoscopy. Had a CAT scan performed which showed no definite abnormalities related to the bowel. Review of Systems ROS unobtainable: due to mental status Past Medical History Past Medical History: CVA/TIA, Diabetes Mellitus, GERD/Reflux, Hyperlipidemia, Hypertension, Renal Disease, Rheumatoid Arthritis (RA), Seizure Disorder, Thyroid Disorder Additional Past Medical History / Comment(s): since stroke, pt is able to comprehend what is being said but has difficulty conveying an answer(expressive apasia. rt ear tinnitus son stated she is paralized on dominant rt side but able to write some with her lt hand, wears depends is incon of urine and stool, (pt needs 2 to assist w/transfer to w/c wears brace for rt foot drop and rt arm brace. allergic rhinnitus,gout, vit d deficiency,low back pain,past kidney stones,neuropathy, wounds to buttocks/upper thigh, falls.son stated that after pt lost weight does'nt thinks he takes any oral meds for dm anymore. son not sure if pt had pne vaccine, called [facility] but they stated their computer system was down at time of this admit write unable to verify date.. History of Any Multi-Drug Resistant Organisms: None Reported Past Surgical History: Orthopedic Surgery, Tonsillectomy Additional Past Surgical History / Comment(s): right hip replacement, d&c, colonoscopy Past Anesthesia/Blood Transfusion Reactions: No Reported Reaction Smoking Status: Never smoker - Past Family History Mother Family Medical History: Pneumonia, Rheumatoid Arthritis (RA) Additional Family Medical History / Comment(s): from complications of pne at age 56 Father Family Medical History: Congestive Heart Failure (CHF), Diabetes Mellitus Additional Family Medical History / Comment(s): at age 63 Medications and Allergies Home Medications Medication Instructions Recorded Confirmed Type Gabapentin [Neurontin] 300 mg PO BID@0900,1700 06/01/14 04/06/18 History NIFEdipine [NIFEdipine ER] 120 mg PO DAILY@0900 06/01/14 04/06/18 History Phenytoin Sodium Extended 100 mg PO BID@0900,1700 06/22/14 04/06/18 History [Dilantin] Acetaminophen Tab [Tylenol Tab] 650 mg PO Q8H PRN 01/26/18 04/06/18 History Allopurinol [Zyloprim] 100 mg PO DAILY@0900 01/26/18 04/06/18 History Ammonium Lactate Lotion 1 applic TOPICAL HS 01/26/18 04/06/18 History [Lac-Hydrin 12% Lotion] Aspirin 81 mg PO DAILY@0901/26/18 04/06/18 History Atorvastatin Calcium [Lipitor] 40 mg PO HS@2100 01/26/18 04/06/18 History Cholecalciferol (Vitamin D3) 2,000 unit PO DAILY@0901/26/18 04/06/18 History [Vitamin D3] Fluticasone Propionate [Flonase 1 spray EA NOSTRIL DAILY@89901/26/18 04/06/18 History Allergy Relief] Ipratropium [place] 0.06%Nasal 2 spray EA NOSTRIL Q24H PRN 01/26/18 04/06/18 History [Atrovent Nasal 0.06%] Levothyroxine Sodium [Synthroid] 100 mcg PO DAILY@89901/26/18 04/06/18 History Lidocaine 5% Patch [Lidoderm] 1 patch TOPICAL DAILY@89901/26/18 04/06/18 History Lisinopril [Prinivil] 5 mg PO DAILY@89901/26/18 04/06/18 History Loperamide HCl [Imodium A-D] 2 mg PO Q24H PRN 01/26/18 04/06/18 History Loratadine [Claritin] 10 mg PO DAILY@89901/26/18 04/06/18 History Methyl Salicylate/Menthol 1 patch TOPICAL QAM@89901/26/18 04/06/18 History [Salonpas Patch] Miconazole Nitrate [Lotrimin AF 1 applic TOPICAL BID 01/26/18 04/06/18 History Powder] [place]-3 Fatty Acids [[place]-3] 1,000 mg PO BID@0900,2100 01/26/18 04/06/18 History Omeprazole [PriLOSEC] 20 mg PO DAILY@0900 01/26/18 04/06/18 History Potassium Chloride [Klor-Con 10] 10 meq PO DAILY@0900 01/26/18 04/06/18 History Sodium Chloride [[place]] 1 spray EA NOSTRIL TID PRN 01/26/18 04/06/18 History Triad Hydrophilic Wound Dress 1 applic TOPICAL Q12H 01/26/18 04/06/18 History Triamterene/Hydrochlorothiazid 2 tab PO QAM@0900 01/26/18 04/06/18 History [Triamterene-Hctz 37.5-25 mg Tb] HYDROcodone/APAP 10-325MG [[place] 1 tab PO Q8H PRN 04/06/18 04/06/18 History 10-325] Allergies Allergy/AdvReac Type Severity Reaction Status Date / Time codeine Allergy Unknown Verified 04/06/18 13:40 Sulfa (Sulfonamide Allergy Unknown Verified 04/06/18 13:40 Antibiotics) Surgical - Exam Vital Signs Temp Pulse Resp BP Pulse Ox 100.5 F H 82 18 128/60 96 04/06/18 12:52 04/06/18 12:52 04/06/18 12:52 04/06/18 12:52 04/06/18 12:52 Physical exam: General: Well-developed, well-nourished HEENT: Normocephalic, sclerae nonicteric Abdomen: Nontender, nondistended Extremities: No edema Neuro: Alert, unable to verbalize appropriate answers to questions, using expletives Results - Labs 04/07/18 06:37 04/07/18 06:37 Abnormal Lab Results - Last 24 Hours (Table) 04/06/18 04/06/18 04/07/18 Range/Units 17:50 20:54 05:51 WBC (3.8-10.6) k/uL Plt Count (150-450) k/uL Neutrophils # (1.3-7.7) k/uL Chloride (98-107) mmol/L Carbon Dioxide (22-30) mmol/L BUN (7-17) mg/dL Glucose (74-99) mg/dL POC Glucose (mg/dL) 126 H 126 H (75-99) mg/dL Plasma Lactic Acid Kurt 2.7 H* (0.7-2.0) mmol/L 04/07/18 04/07/18 04/07/18 Range/Units 06:37 06:37 11:55 WBC 13.9 H (3.8-10.6) k/uL Plt Count 122 L (150-450) k/uL Neutrophils # 11.5 H (1.3-7.7) k/uL Chloride 108 H (98-107) mmol/L Carbon Dioxide 18 L (22-30) mmol/L BUN 32 H (7-17) mg/dL Glucose 124 H (74-99) mg/dL POC Glucose (mg/dL) 103 H (75-99) mg/dL Plasma Lactic Acid Kurt (0.7-2.0) mmol/L Microbiology - Last 24 Hours (Table) 04/06/18 13:50 Blood Culture - Preliminary Blood No Growth after 24 hours Diabetes panel 04/07/18 Range/Units 06:37 Sodium 141 (137-145) mmol/L Potassium 3.5 (3.5-5.1) mmol/L Chloride 108 H (98-107) mmol/L Carbon Dioxide 18 L (22-30) mmol/L BUN 32 H (7-17) mg/dL Creatinine 0.83 (0.52-1.04) mg/dL Glucose 124 H (74-99) mg/dL Calcium 8.6 (8.4-10.2) mg/dL Calcium panel 04/07/18 Range/Units 06:37 Calcium 8.6 (8.4-10.2) mg/dL Pituitary panel 04/07/18 Range/Units 06:37 Sodium 141 (137-145) mmol/L Potassium 3.5 (3.5-5.1) mmol/L Chloride 108 H (98-107) mmol/L Carbon Dioxide 18 L (22-30) mmol/L BUN 32 H (7-17) mg/dL Creatinine 0.83 (0.52-1.04) mg/dL Glucose 124 H (74-99) mg/dL Calcium 8.6 (8.4-10.2) mg/dL Adrenal panel 04/07/18 Range/Units 06:37 Sodium 141 (137-145) mmol/L Potassium 3.5 (3.5-5.1) mmol/L Chloride 108 H (98-107) mmol/L Carbon Dioxide 18 L (22-30) mmol/L BUN 32 H (7-17) mg/dL Creatinine 0.83 (0.52-1.04) mg/dL Glucose 124 H (74-99) mg/dL Calcium 8.6 (8.4-10.2) mg/dL Assessment and Plan (1) Rectal bleeding Narrative/Plan: Continue diet as tolerated. Patient was this agreeable during our evaluation today. We'll reattempt rectal exam tomorrow. Current Visit: Yes Status: Acute Code(s): K62.5 - HEMORRHAGE OF ANUS AND RECTUM SNOMED Code(s): 02792580
--- NOTE | 2018-04-07 19:24 | PN ---
PROGRESS NOTE DATE OF SERVICE: 04/07/2018 PRESENTING COMPLAINT: Lower GI bleed. INTERVAL HISTORY: This patient presented with lower GI bleed. Jennie called me from GI that she had noticed some mucousy discharge and perirectal area was rather raw. When I went to see the patient, for everything she was saying "bullshit" and was in rather aggressive mode, not able to do a rectal area exam. The patient was eating some, selective liquid diet. REVIEW OF SYSTEMS: Difficult to obtain, but the patient was answering some questions. CURRENT MEDICATIONS: Reviewed that include Protonix. EXAMINATION: Temperature 98.2, pulse 72, respirations 18, blood pressure 130/61, pulse ox 94% on room air. GENERAL APPEARANCE: Lying in bed, awake. EYES: Pupils equal. Conjunctivae normal. HEENT: External nose and ears normal. Oral cavity unable to assess. NECK: JVD unable to assess. Mass not palpable. RESPIRATORY: Effort normal. LUNGS: Fair air entry. CARDIOVASCULAR: First and second sounds normal. No edema. ABDOMEN: Soft, nontender. Liver and spleen not palpable. Unable to check the rectal area. NEUROLOGICAL: Patient remains dysarthric. Power on the right side is 4/5. INVESTIGATIONS: White count 13.9, hemoglobin 13.1. Potassium 3.5, BUN 32, creatinine is 0.83. ASSESSMENT: 1. Acute urinary tract infection with sepsis, present on admission. 2. Lactic acidosis. 3. Dehydration with acute renal failure with some improvement. 4. Acute lower gastrointestinal bleed. There was a concern for perirectal infection or abscess. 5. Right hemiparesis from prior stroke. 6. Chronic expressive dysphasia. 7. Diabetes mellitus type 2. 8. Gastroesophageal reflux disease. 9. Hyperlipidemia. 10.Essential hypertension. 11.Chronic kidney disease stage 2. 12.Seizure disorder. 13.Hypothyroidism. 14.Medical debility. Patient is a 2-person assist. 15.Primary osteoarthritis. PLAN: Continue with antibiotic. General Surgery was consulted. The patient is on a clear liquid diet. We will await input from the same. Follow up with Gastroenterology and Surgery. MMODL / IJN: [id number] /
[2018-04-07] MEDS: AMMONIUM LACTATE 12% LOTION 225 GM BTL TOPICAL SCH (21:45)
[2018-04-07] MEDS: ATORVASTATIN 40 MG TAB PO SCH (21:45)
[2018-04-08] MEDS: PHENYTOIN SODIUM EXTENDED 100 MG CAP PO SCH ×2 (09:21→16:52)
[2018-04-08] MEDS: LISINOPRIL 5 MG TAB PO SCH (09:23)
[2018-04-08] MEDS: LEVOTHYROXINE 100 MCG TAB PO SCH (09:24)
[2018-04-08] MEDS: GABAPENTIN 300 MG CAP PO SCH ×2 (09:25→16:52)
[2018-04-08] MEDS: LORATADINE 10 MG TAB PO SCH (09:26)
[2018-04-08] MEDS: ALLOPURINOL 100 MG TAB PO SCH (09:26)
[2018-04-08] MEDS: FLUTICASONE 50MCG/SPRAY NASAL 16GM EA NOSTRIL SCH (09:27)
[2018-04-08] MEDS: NYSTATIN 100,000 UNIT/GM POWD 15 GM TOPICAL SCH ×2 (09:27→20:52)
[2018-04-08] MEDS: PANTOPRAZOLE 40 MG/10 ML VIAL IV SCH (09:27)
[2018-04-08] MEDS: LIDOCAINE 5% PATCH TOPICAL SCH (09:27)
--- NOTE | 2018-04-08 09:35 | P.PN ---
Subjective Progress Note Date: 04/08/18 Principal diagnosis: Rectal bleeding Patient is very agitated this morning screaming out loud intermittent profanity. Resisted physical exam combative. CEA mildly elevated 5.4. Nursing reports very faint pale serosanguineous drainage in diaper. No mele rectal bleeding. General surgery attempted exam yesterday patient was resistant. Objective - Vital Signs Vital signs: Vital Signs Temp 98.9 F 04/08/18 08:17 Pulse 90 04/08/18 08:17 Resp 20 04/08/18 08:17 BP 115/71 04/08/18 08:17 Pulse Ox 96 04/08/18 08:17 Intake & Output 04/07/18 04/08/18 04/08/18 18:59 06:59 18:59 Intake Total 1175 300 Balance 1175 300 Weight 82 kg Intake: IV 525 300 Sodium Chloride 0.9% 1, 525 300 000 ml @ 75 mls/hr IV . [id number] [facility] Rx#:[id number] Oral 650 Other: Voiding Method Diaper Diaper Incontinent # Voids 1 2 - Constitutional General appearance: Present: obese - EENT Eyes: Present: normal appearance - Neck Neck: Present: normal ROM - Respiratory Respiratory: bilateral: CTA - Cardiovascular Heart sounds: normal: S1, S2 - Gastrointestinal Gastrointestinal Comment(s): nontender General gastrointestinal: Present: soft - Neurologic Neurologic Comment(s): agitated yelling out left hemiparesis - Labs CBC & Chem 7: 04/07/18 06:37 04/07/18 06:37 Labs: Abnormal Lab Results - Last 24 Hours (Table) 04/07/18 04/07/18 Range/Units 06:37 11:55 POC Glucose (mg/dL) 103 H (75-99) mg/dL Carcinoembryonic Ag 5.4 H (0.0-4.9) ng/mL Microbiology - Last 24 Hours (Table) 04/06/18 13:50 Blood Culture - Preliminary Blood No Growth after 24 hours Assessment and Plan (1) Rectal bleeding Narrative/Plan: Without anemia. Possible proctitis possible colitis. Evidence of perirectal anal excoriation fissure appearance with suspected internal hemorrhoids patient was not cooperative with rectal exam screaming and resisting with staff. Difficult to exclude rectal mass however CT abdomen and pelvis reported no evidence of rectal pathology. No mele blood on exam mostly pink serosanguinous rectal drainage possible hematuria. Current Visit: Yes Status: Acute Code(s): K62.5 - HEMORRHAGE OF ANUS AND RECTUM SNOMED Code(s): 17915870 (2) CVA, old, hemiparesis Current Visit: Yes Status: Acute Code(s): I69.359 - HEMIPLGA FOLLOWING CEREBRAL INFARCTION AFFECTING UNSP SIDE SNOMED Code(s): 860305977 (3) UTI (urinary tract infection) Current Visit: Yes Status: Acute Code(s): N39.0 - URINARY TRACT INFECTION, SITE NOT SPECIFIED SNOMED Code(s): 24396901 Plan: 1. Local perirectal care. Case was discussed with Dr. Orr and Dr. Mercer. GS will attempt to reevaluate patient today. 2. Inpatient endoscopy not planned at this time but contingent on clinical course. Patient most likely will not comply or tolerate bowel prep. Patient had colonoscopy at [facility] [address] we'll [address] report [address] on chart for review. 3. Full liquid diet as tolerated. 5. CBC monitoring. Assessment and plan a care discussed with Dr. Moise
[2018-04-08] MEDS: HYDROcodone/APAP 10-325MG 1 EACH TAB PO PRN ×2 (11:19→19:29)
[2018-04-08] MEDS: SODIUM CHLORIDE 0.9% 1,000 ML IV SCH (12:53)
--- NOTE | 2018-04-08 15:23 | P.PN ---
Subjective Progress Note Date: 04/08/18 Principal diagnosis: Rectal bleeding Patient again today was refusing exam. After talking with Dr. Orr and talking to the patient further we were able to get her to agree to allow us to repeat her rectal examination. Low-grade fever 100.4. White blood cell count improved. Objective - Vital Signs Vital signs: Vital Signs Temp 97 F L 04/08/18 15:00 Pulse 73 04/08/18 15:00 Resp 20 04/08/18 15:00 BP 110/58 04/08/18 15:00 Pulse Ox 95 04/08/18 15:00 Intake & Output 04/07/18 04/08/18 04/08/18 18:59 06:59 18:59 Intake Total 1175 300 Balance 1175 300 Weight 82 kg Intake: IV 525 300 Sodium Chloride 0.9% 1, 525 300 000 ml @ 75 mls/hr IV . [id number] [facility] Rx#:[id number] Oral 650 Other: Voiding Method Diaper Diaper Diaper Incontinent Incontinent # Voids 1 2 2 - Exam Rectal: Patulous anus with edema in the tissues around the perineum. Small wound over sacrum. Patient with fullness in the posterior right lateral rectal wall with some friability. Liquid stool has a semi-purulent appearance. Mild tenderness diffusely. No definite drainable abscess seen. Circumferential hemorrhoids identified. - Labs CBC & Chem 7: 04/07/18 06:37 04/07/18 06:37 Labs: Abnormal Lab Results - Last 24 Hours (Table) 04/07/18 Range/Units 06:37 Carcinoembryonic Ag 5.4 H (0.0-4.9) ng/mL Microbiology - Last 24 Hours (Table) 04/06/18 13:50 Blood Culture - Preliminary Blood No Growth after 24 hours Assessment and Plan (1) Rectal bleeding Narrative/Plan: Case discussed further with Dr. Orr. We'll check CT pelvis as the initial CAT scan did not seem to go low enough to evaluate this region fully. We'll consult infectious disease for possible perirectal abscess and appropriate antibiotic coverage. Patient clinically does seem to be improving with less fevers and improving white blood cell count. Currently no drainable abscess palpable. Patient may benefit from flexible sigmoidoscopy depending on the CAT scan results and the patient's response to ongoing antibiotics. Current Visit: Yes Status: Acute Code(s): K62.5 - HEMORRHAGE OF ANUS AND RECTUM SNOMED Code(s): 92269903
[2018-04-08] MEDS: cefTRIAXone IN SWFI 1,000 MG/10 ML SYRINGE IVP SCH (16:41)
--- NOTE | 2018-04-08 19:23 | CT ---
EXAMINATION TYPE: CT pelvis w con DATE OF EXAM: 04/08/2018 COMPARISON: 04/06/2018 HISTORY: Evaluate for perirectal abscess. CT DLP: 1643.9 mGycm Automated exposure control for dose reduction was used. CONTRAST: Performed with IV Contrast, patient injected with 100ml mL of Isovue M300. FINDINGS: There is cortical thinning in the lower pole right kidney. There is no hydronephrosis. There is no re troperitoneal adenopathy. There is no free fluid in the pelvis. There is perirectal posterior fluid collection that measures al most 2 cm in thickness. This is interposed between the rectum and sacrum. There is a very low posteri or perianal fluid collection that measures 3.3 cm. There is a right hip nailing. Bladder distends smo othly. Uterus is anteverted. IMPRESSION: THERE IS PRESACRAL FLUID ACCUMULATION THAT HAS INCREASED COMPARED TO CT SCAN OF 04/06/2018 AND CONSIST ENT WITH PERIRECTAL ABSCESS. THIS MEASURES 7 X 2 CM. THERE IS A POSTERIOR APPARENT PERIANAL ABSCESS M EASURES 3 CM AND APPEARS NEW COMPARED TO LAST EXAM.
[2018-04-08] MEDS: AMPICILLIN-SULBACTAM 3 GM in SODIUM CHLORIDE 0.9% 100 ML IVPB SCH ×2 (19:31→23:54)
[2018-04-08] MEDS: AMMONIUM LACTATE 12% LOTION 225 GM BTL TOPICAL SCH (20:50)
[2018-04-08] MEDS: ATORVASTATIN 40 MG TAB PO SCH (20:52)
--- NOTE | 2018-04-08 21:49 | PN ---
PROGRESS NOTE DATE OF SERVICE: 04/08/2018 PRESENTING COMPLAINT: Lower back wound. INTERVAL HISTORY: This patient initially presented with lower GI bleed, now found to have a wound in the coccygeal area. She has some drain from there. Being followed by Dr. Oneal. Has some pain in that area. REVIEW OF SYSTEMS: Difficult to obtain because the patient has dysarthria. CURRENT MEDICATIONS: Reviewed. They include IV Unasyn and IV fluids. PHYSICAL EXAMINATION: Temperature 97, pulse 73, respiration 20, blood pressure 110/58 pulse ox 95% on room air. GENERAL APPEARANCE: Lying in bed, awake. EYES: Pupils equal. Conjunctivae normal. HEENT: External appearance of nose and ears normal. Oral cavity normal. NECK: JVD unable to assess. Mass not palpable. RESPIRATORY: Effort normal. LUNGS: Fair air entry. CARDIOVASCULAR: First and second sounds normal. No edema. ABDOMEN: Soft, non-tender. Liver and spleen not palpable. Patient has a boggy area in the coccygeal area with a central opening which is draining from there. It is difficult to see how far this goes in. NEUROLOGICAL: Patient is dysarthric. Power on the right side 4/5. INVESTIGATIONS: White count 13.9, potassium 3.5. ASSESSMENT: 1. Acute urinary tract infection with sepsis, present on admission. 2. Large significant wound in the coccygeal area with draining; difficult to see this is communicating or a fistula; present on admission, with adjoining areas of excoriation. 3. Lactic acidosis. 4. Dehydration with acute renal failure with some improvement. 5. Right hemiparesis from prior stroke. 6. Chronic expressive dysarthria. 7. Diabetes mellitus, type 2. 8. Gastroesophageal reflux disease. 9. Hyperlipidemia. 10.Essential hypertension. 11.Chronic kidney disease, stage II. 12.Seizure disorder. 13.Hypothyroidism. 14.Medical debility. Patient is a 2-person assist. 15.Primary osteoarthritis. PLAN: Discussed with Dr. Oneal today. He is putting ID on the case. The patient is already on IV Unasyn. We will decide further what route to take. MMODL / IJN: [id number] /
--- NOTE | 2018-04-09 04:25 | CONS ---
CONSULTATION DATE OF SERVICE: 04/08/2018. REASON FOR CONSULTATION: A perirectal abscess. HISTORY OF PRESENT ILLNESS: The patient is a 73-year-old female who was brought into the ER by the EMS with chief complaint of weakness and GI bleed. The patient herself is not a very good historian and she categorically denied all symptoms to me when asked specifically. However, per review of the chart, has been noticed that the patient does have some mucousy bloody stools that apparently has been going on for about a day or two prior to the patient brought to the hospital. The patient did have a CT abdomen and pelvis done in the ER, which was negative. On arrival to the ER, the patient did have a fever of 100.5-101.9. She has been empirically treated with Rocephin with subsequent resolution of her fever and her white count which was elevated 20,000 is down to 13.9. Today there was possibility of a perirectal abscess after the patient was examined by the surgeon perirectally. Hence, Infectious Disease was consulted for further recommendation regarding antibiotic therapy. Most of the information has been obtained from the review of the chart and talking to the nursing staff as the patient is unable to provide any reliable history as mentioned earlier. REVIEW OF SYSTEMS: Could not be reliably obtained. The positive points have been mentioned in the HPI. PAST MEDICAL HISTORY: Significant for CVA, TIA, diabetes mellitus, gastroesophageal reflux disease, hypertension, hyperlipidemia, rheumatoid arthritis, seizure disorder, hypothyroidism. PAST SURGICAL HISTORY: Tonsillectomy, right hip replacement, colonoscopy. SOCIAL HISTORY: No history of smoking, drinking, or drug use. FAMILY HISTORY: Mother with history of rheumatoid arthritis, from at the age of 56. Father with history of congestive heart failure, diabetes mellitus. ALLERGIES: SULFA and CODEINE. MEDICATION: Medications include the patient is currently on: [place], Zyloprim, Rocephin and Lipitor, Flonase, Neurontin, Atrovent, Lac-Hydrin, Synthroid, Lidoderm, Restoril, Claritin, Narcan, Nifedipine, Mycostatin powder, Protonix and Dilantin. PHYSICAL EXAMINATION: Her blood pressure is 110/58 with a pulse of 70, temperature 98.7, she is 98% on room air. General description is an elderly female lying in bed in no distress. No tachypnea or accessory muscles of respiration use. HEENT: Shows no pallor or scleral icterus. Oral mucosa membranes dry. No significant erythema or thrush. Neck: Trachea central, no thyromegaly. Lungs: Unlabored breathing, clear to auscultation. No wheeze or crackles. Heart S1, S2. Regular rate and rhythm. Abdomen soft, slightly distended. ABDOMEN: Soft slightly distended. No guarding or rigidity. Examination of the rectal area with the help of the RN did show the feeling to the perirectal area, which is tender to touch with some liquid stool. Also has unstageable pressure ulcer to the sacral area with no cellulitis. EXTREMITIES: No edema of the feet. Skin examination: No rash or mass palpable. Neurological: Patient is awake, alert, oriented times one. Mood and affect normal. LABS: Hemoglobin 13.1, white count 13.2. Admission white count was 20,000. BUN of 32, creatinine 0.83. Electrolytes have been normal. The patient urine was positive with moderate leukocyte esterases with moderate bacteria with culture currently pending. Stool for occult blood was positive. Blood culture obtained, currently pending. DIAGNOSTIC IMPRESSION AND PLAN: Patient admitted to the hospital with sepsis in a patient who did have fever of 101 degrees Fahrenheit. The patient was tachycardic. Did have elevated white count. Source is likely perirectal abscess as the patient has no other clinical focus of infection. The patient's lungs were clear to auscultation. CT abdomen was negative. However, the patient does have a abdomen with distention with perirectal area tenderness and more likely the source of infection. The patient did have a positive UA that could be the other etiology of the likely organism, need to cover with both gram negative both aerobes and anaerobes. PLAN: 1. Discontinue Rocephin. 2. Will start the patient on Unasyn 3 g every 6 hours. 3. A[address] the CT abdomen and pelvis to be completed. 4. Drainage of the abscess, the fluid sent for culture, both aerobic and anaerobic. 5. We will follow up on the clinical condition and culture to further adjust medication if needed. Thank you for this consultation. We will follow this patient along with you. MMODL / IJN: [id number] /
[2018-04-09] MEDS: HYDROcodone/APAP 10-325MG 1 EACH TAB PO PRN ×3 (05:36→21:49)
[2018-04-09] MEDS: AMPICILLIN-SULBACTAM 3 GM in SODIUM CHLORIDE 0.9% 100 ML IVPB SCH ×3 (05:36→17:07)
[2018-04-09 07:33] LABS: Basophils % (A) 0 %; Eosinophils # (A) 0.1 k/uL (0-0.7); Eosinophils % (A) 2 %; HCT 32.7 % (34.0-46.0); HGB 10.7 gm/dL (11.4-16.0); Lymphocytes # (A) 0.7 k/uL (1.0-4.8); Lymphocytes % (A) 10 %; MCH 31.4 pg (25.0-35.0); MCHC 32.8 g/dL (31.0-37.0); MCV 95.8 fL (80.0-100.0); Mean Platelet Volume 7.3; Monocytes # (A) 0.5 k/uL (0-1.0); Monocytes % (A) 6 %; Neutrophils % (A) 80 %; Platelet Count 116 k/uL (150-450); RBC 3.42 m/uL (3.80-5.40); RDW 14.2 % (11.5-15.5); WBC 7.5 k/uL (3.8-10.6)
[2018-04-09 07:54] LABS: Anion Gap 10 mmol/L; Blood Urea Nitrogen 18 mg/dL (7-17); Calcium 8.1 mg/dL (8.4-10.2); Carbon Dioxide 22 mmol/L (22-30); Chloride 108 mmol/L (98-107); Glucose 99 mg/dL (74-99); Potassium 3.1 mmol/L (3.5-5.1); Sodium 140 mmol/L (137-145)
[2018-04-09] MEDS: SODIUM CHLORIDE 0.9% 1,000 ML IV SCH ×3 (08:23→17:07)
[2018-04-09] MEDS: LIDOCAINE 5% PATCH TOPICAL SCH (09:32)
[2018-04-09] MEDS: NYSTATIN 100,000 UNIT/GM POWD 15 GM TOPICAL SCH ×2 (09:34→21:49)
--- NOTE | 2018-04-09 09:36 | P.PN ---
Progress Note - Text Progress Note Date: 04/09/18 The patient resting comfortably in her bed. She does not appear to be any significant distress. She denies any significant abdominal pain. On exam her vital signs are stable. Her abdomen soft. Patient underwent CAT scan of the abdomen and pelvis yesterday. She is found have a 7 x 2 cm and a 3 cm perianal abscess. The patient does have some drainage. The patient's white count has improved. The patient continue receive IV antibiotics. We will follow with you.
[2018-04-09] MEDS: PANTOPRAZOLE 40 MG/10 ML VIAL IV SCH (09:49)
[2018-04-09] MEDS: GABAPENTIN 300 MG CAP PO SCH ×2 (09:52→16:21)
[2018-04-09] MEDS: PHENYTOIN SODIUM EXTENDED 100 MG CAP PO SCH ×2 (09:53→16:21)
[2018-04-09] MEDS: LISINOPRIL 5 MG TAB PO SCH (09:54)
[2018-04-09] MEDS: LORATADINE 10 MG TAB PO SCH (09:58)
[2018-04-09] MEDS: ALLOPURINOL 100 MG TAB PO SCH (09:58)
[2018-04-09] MEDS: LEVOTHYROXINE 100 MCG TAB PO SCH (09:58)
[2018-04-09] MEDS: FLUTICASONE 50MCG/SPRAY NASAL 16GM EA NOSTRIL SCH (09:59)
[2018-04-09] MEDS ORDERED: POTASSIUM CHLORIDE ER 20 MEQ TAB.ER PO STA (10:25)
[2018-04-09] MEDS: KETOROLAC 30 MG/ML 1 ML VIAL IVP PRN ×2 (10:28→16:15)
--- NOTE | 2018-04-09 18:44 | PN ---
PROGRESS NOTE DATE OF SERVICE: April 09, 2018. PRESENT COMPLAINT: Coccygeal wound. INTERVAL HISTORY: Patient presented with some bleeding, is found now to have a perirectal abscess and a coccygeal wound with a possible suspected fistula quite painful tender, draining. REVIEW OF SYSTEMS: Difficult to obtain because the patient's dysarthria. Having significant pain in the area. CURRENT MEDICATIONS: Reviewed that include IV Unasyn. PHYSICAL EXAMINATION: VITAL SIGNS: Temperature 97.6, pulse 85, respiratory 18, blood pressure 114/64. GENERAL APPEARANCE: Lying in bed, somewhat uncomfortable. EYES: Pupils are equal. Conjunctivae normal. HEENT: External appearance of nose and ears normal. Oral cavity normal. NECK: JVD unable to assess. Mass not palpable. RESPIRATORY: Effort normal. LUNGS: Are clear. CARDIOVASCULAR: 1st and 2nd sounds normal. No edema. ABDOMEN: Somewhat distended, soft. Coccygeal wound present, draining. NEUROLOGICAL: Patient dysarthric. Power on the right side is 4/5. INVESTIGATIONS: White count 7.5, potassium 3.1. Pelvic CT shows a perirectal abscess 7 x 2 cm and progressed since last exam. ASSESSMENT: 1. Severe perirectal abscess with a possible communicating fistula to the outside. 2. Probable source of sepsis. 3. Acute urinary tract infection with sepsis present on admission. 4. Lactic acidosis. 5. Dehydration with acute renal failure with improvement. 6. Right hemiparesis from prior stroke. 7. Chronic expressive dysarthria. 8. Diabetes mellitus type 2. 9. Gastroesophageal reflux disease. 10.Hyperlipidemia. 11.Essential hypertension. 12.Seizure disorder. 13.Hypothyroidism. 14.Medical debility. Patient is a 2 person assist. 15.Primary osteoarthritis. 16.There is no chronic kidney disease. 17.Acute renal failure likely prerenal/acute tubular necrosis from sepsis, improved. PLAN: Continue with current antibiotics, local care. Did communicate to Dr. Goldstein that this significant wound needs to probably be drained. MMODL / IJN: [id number] /
[2018-04-09] MEDS: ATORVASTATIN 40 MG TAB PO SCH (21:49)
[2018-04-09] MEDS: AMMONIUM LACTATE 12% LOTION 225 GM BTL TOPICAL SCH (21:49)
[2018-04-10] MEDS: AMPICILLIN-SULBACTAM 3 GM in SODIUM CHLORIDE 0.9% 100 ML IVPB SCH ×5 (00:14→23:50)
[2018-04-10] MEDS: KETOROLAC 30 MG/ML 1 ML VIAL IVP PRN ×4 (00:16→23:27)
[2018-04-10] MEDS: HYDROcodone/APAP 10-325MG 1 EACH TAB PO PRN ×3 (05:18→22:36)
[2018-04-10 07:31] LABS: Anion Gap 9 mmol/L; Blood Urea Nitrogen 19 mg/dL (7-17); Calcium 8.2 mg/dL (8.4-10.2); Carbon Dioxide 22 mmol/L (22-30); Chloride 112 mmol/L (98-107); Glucose 90 mg/dL (74-99); Potassium 3.6 mmol/L (3.5-5.1); Sodium 143 mmol/L (137-145)
[2018-04-10] MEDS: LISINOPRIL 5 MG TAB PO SCH (08:26)
[2018-04-10] MEDS: NYSTATIN 100,000 UNIT/GM POWD 15 GM TOPICAL SCH ×2 (08:26→22:36)
[2018-04-10] MEDS: SODIUM CHLORIDE 0.9% 1,000 ML IV SCH ×2 (08:31→17:48)
[2018-04-10] MEDS ORDERED: PROPOFOL 10 MG/ML 20 ML VIAL IV ONE (10:13)
[2018-04-10] MEDS ORDERED: LIDOCAINE 1% INJ 10MG/ML (20 ML MDV) ONE (10:13)
[2018-04-10] MEDS ORDERED: fentaNYL (PF) 50 MCG/ML 2 ML AMP ONE (10:13)
[2018-04-10] MEDS ORDERED: MIDAZOLAM 2 MG/2 ML VIAL ONE (10:13)
[2018-04-10] MEDS ORDERED: IV FLUID CONTINUATION 900 ML IV ONE (10:36)
[2018-04-10] MEDS ORDERED: GELATIN SPONGE,ABSORB (LARGE) 1 EACH SPONGE TOPICAL ONE (10:55)
[2018-04-10] MEDS: FLUTICASONE 50MCG/SPRAY NASAL 16GM EA NOSTRIL SCH (10:56)
[2018-04-10] MEDS: LORATADINE 10 MG TAB PO SCH (10:57)
[2018-04-10] MEDS: GABAPENTIN 300 MG CAP PO SCH ×2 (10:57→17:52)
--- NOTE | 2018-04-10 11:01 | P.OP ---
Date of Procedure: 04/10/18 Preoperative Diagnosis: GI bleed Perirectal abscess Postoperative Diagnosis: Ischemic proctitis Procedure(s) Performed: Exam under anesthesia with rectal biopsy Anesthesia: MAC Surgeon: Burt Goldstein Estimated Blood Loss (ml): 5 Pathology: other (Rectum) Condition: stable Disposition: floor Description of Procedure: The patient's placed on the operative table in the lateral position. She received IV sedation. Her perineum was prepped and draped usual sterile fashion. The perianal area was carefully palpated. No obvious fluctuant mass can be felt. In the left perivaginal area there is some induration in the skin. However there is no abscess palpated. This area was probed with a needle and no abscess cavity could be entered. At this point the rectum was examined. A anoscope was placed into the anus and the rectum was examined. There was evidence of severe colitis of the rectum. It had the appearance of ischemic colitis. A biopsy was performed. No obvious abscess could be palpated. The peritoneum was explored with an 18-gauge needle and no abscess could be found in the perianal area. This point the procedure was stopped. Patient top she will she went to recovery room stable condition. The patient will require a colonoscopy.
[2018-04-10] MEDS: HYDROmorphone 1 MG/ML 1 ML SYRINGE IVP ONE ×2 (11:21→11:29)
[2018-04-10] MEDS: PANTOPRAZOLE 40 MG/10 ML VIAL IV SCH (12:03)
[2018-04-10] MEDS: LEVOTHYROXINE 100 MCG TAB PO SCH (14:27)
[2018-04-10] MEDS: ALLOPURINOL 100 MG TAB PO SCH (14:27)
[2018-04-10] MEDS: LIDOCAINE 5% PATCH TOPICAL SCH (14:27)
[2018-04-10] MEDS: PHENYTOIN SODIUM EXTENDED 100 MG CAP PO SCH ×3 (14:29→22:35)
--- NOTE | 2018-04-10 20:12 | PN ---
PROGRESS NOTE DATE OF SERVICE: 04/10/18. PRESENTING COMPLAINT: Perirectal abscess. INTERVAL HISTORY: The patient presented with a wound on in the coccygeal area and CT scan showing perirectal abscess. Patient is taken to the OR today and endoscope was done, found to have severe proctitis and distal colitis and still my suspicion that the patient has a perirectal abscess. The patient is on IV antibiotics. REVIEW OF SYSTEMS: Difficult to obtain because of patient's dysarthria. Patient has pain in the rectal. CURRENT MEDICATIONS: Reviewed that include IV Unasyn. PHYSICAL EXAMINATION: Temperature 97.2, pulse 83, respiration 14, blood pressure 106/64, pulse ox 95% on room air. GENERAL APPEARANCE: Lying in bed, awake. EYES: Pupils equal. Conjunctivae normal. HEENT: External appearance of nose and ears. Oral cavity normal. NECK: JVD unable to assess. Mass not palpable. RESPIRATORY: Effort normal. Lungs are clear. CARDIOVASCULAR: First and second sounds normal. No edema. ABDOMEN: Some distention, coccygeal wound is present. NEUROLOGICAL: The patient is dysarthric. Power on the right side is 4/5. INVESTIGATIONS: Potassium 3.6, creatinine 0.7. ASSESSMENT: 1. Still very suspicious for perirectal abscess as noted in the CT of the pelvis and questionable fistula to the outside associated with severe proctitis, distal colitis, being the probable source of sepsis. 2. Acute urinary tract infection with sepsis present on admission. 3. Lactic acidosis. 4. Dehydration with acute renal failure with resolution. 5. Right hemiparesis from prior stroke. 6. Chronic expressive dysarthria. 7. Diabetes mellitus type 2. 8. Gastroesophageal reflux disease. 9. Hyperlipidemia. 10.Essential hypertension. 11.Seizure disorder. 12.Hypothyroid. 13.Medical debility patient is a 2 person assist. 14.Primary osteoarthritis. 15.There is no chronic kidney disease. 16.Acute renal failure likely prerenal acute tubular necrosis from sepsis, now stable. PLAN: At this point, continue the current antibiotics per Dr. Goldstein. Patient used to have a colonoscopy. GI is already on the case. I feel that the patient may need to go back to the OR again under general anesthesia after the colonoscopy to drain, but will defer this further evaluation by GI in terms of colonoscopy. MMODL / IJN: [id number] /
[2018-04-10] MEDS: AMMONIUM LACTATE 12% LOTION 225 GM BTL TOPICAL SCH (22:36)
[2018-04-10] MEDS: ATORVASTATIN 40 MG TAB PO SCH (22:36)
--- NOTE | 2018-04-11 05:24 | PN ---
PROGRESS NOTE DATE OF SERVICE: 04/10/2018. REASON FOR FOLLOWUP: Perirectal abscess. INTERVAL HISTORY: The patient was taken to the OR and the patient is status post exam under anesthesia with rectal biopsy with evidence of ischemic proctitis. Patient remains to be afebrile and hemodynamically stable. Some abdominal distention. No nausea, vomiting. Was unable to provide a reliable history. PHYSICAL EXAMINATION: On examination, blood pressure 122/66 with a pulse of 75, temperature 97.2. She is 93% on room air. General description is an elderly female lying in bed in no distress. RESPIRATORY SYSTEM: Unlabored breathing, clear to auscultation anteriorly. HEART: S1, S2. Regular rate and rhythm. ABDOMEN: Soft, no distention. No guarding or rigidity. LABS: Hemoglobin is 10.7, white count normalized to 7.5. BUN of 19, creatinine 0.70. Blood culture has been negative. DIAGNOSTIC IMPRESSION AND PLAN: Patient admitted to the hospital with fever and concern for possible perirectal abscess, status post exam under anesthesia with concern for possible ischemic proctitis. The patient is currently on Unasyn and white count has normalized. We will continue to monitor her clinical course closely. Continue with Unasyn. Continue supportive care. MMODL / IJN: [id number] /
[2018-04-11] MEDS: AMPICILLIN-SULBACTAM 3 GM in SODIUM CHLORIDE 0.9% 100 ML IVPB SCH ×3 (05:57→16:37)
[2018-04-11] MEDS: HYDROcodone/APAP 10-325MG 1 EACH TAB PO PRN ×2 (06:01→16:35)
[2018-04-11 07:50] LABS: Basophils % (A) 0 %; Eosinophils # (A) 0.2 k/uL (0-0.7); Eosinophils % (A) 2 %; HCT 34.3 % (34.0-46.0); HGB 11.4 gm/dL (11.4-16.0); Lymphocytes # (A) 0.8 k/uL (1.0-4.8); Lymphocytes % (A) 11 %; MCH 31.1 pg (25.0-35.0); MCHC 33.3 g/dL (31.0-37.0); MCV 93.3 fL (80.0-100.0); Mean Platelet Volume 7.9; Monocytes # (A) 0.5 k/uL (0-1.0); Monocytes % (A) 7 %; Neutrophils # (A) 5.8 k/uL (1.3-7.7); Neutrophils % (A) 79 %; Platelet Count 152 k/uL (150-450); RBC 3.67 m/uL (3.80-5.40); RDW 13.3 % (11.5-15.5); WBC 7.3 k/uL (3.8-10.6)
[2018-04-11 08:11] LABS: Anion Gap 10 mmol/L; Blood Urea Nitrogen 15 mg/dL (7-17); Calcium 8.3 mg/dL (8.4-10.2); Carbon Dioxide 23 mmol/L (22-30); Chloride 113 mmol/L (98-107); Glucose 90 mg/dL (74-99); Potassium 3.7 mmol/L (3.5-5.1); Sodium 146 mmol/L (137-145)
[2018-04-11] MEDS: NYSTATIN 100,000 UNIT/GM POWD 15 GM TOPICAL SCH ×2 (09:16→20:52)
[2018-04-11] MEDS: ALLOPURINOL 100 MG TAB PO SCH (09:17)
[2018-04-11] MEDS: LISINOPRIL 5 MG TAB PO SCH (09:17)
[2018-04-11] MEDS: LIDOCAINE 5% PATCH TOPICAL SCH (09:17)
[2018-04-11] MEDS: PANTOPRAZOLE 40 MG/10 ML VIAL IV SCH (09:17)
[2018-04-11] MEDS: GABAPENTIN 300 MG CAP PO SCH ×2 (09:17→16:34)
[2018-04-11] MEDS: LORATADINE 10 MG TAB PO SCH (09:17)
[2018-04-11] MEDS: PHENYTOIN SODIUM EXTENDED 100 MG CAP PO SCH ×2 (09:17→16:34)
[2018-04-11] MEDS: FLUTICASONE 50MCG/SPRAY NASAL 16GM EA NOSTRIL SCH (09:21)
[2018-04-11] MEDS: KETOROLAC 30 MG/ML 1 ML VIAL IVP PRN ×2 (10:03→20:11)
[2018-04-11] MEDS: LEVOTHYROXINE 100 MCG TAB PO SCH (11:44)
--- NOTE | 2018-04-11 12:20 | P.PN ---
Subjective this is a pleasant 73 years old female with past medical history of CVA/TIA with residual right hemiparesis and foot drop that needs assistance with mobility, and residual expressive aphasia,diabetes mellitus, GERD, hyperlipidemia, hypertension, renal disease, rheumatoid arthritis, seizure disorder, hypothyroidism she presents from senior care for a fall, patient was noticed to have some blood in her stool and therefore she was sent to the hospital possible lower GI bleed Objective - Vital Signs Vital signs: Vital Signs Temp 97.8 F 04/11/18 07:00 Pulse 66 04/11/18 07:00 Resp 18 04/11/18 07:00 BP 135/69 04/11/18 07:00 Pulse Ox 93 L 04/11/18 07:00 Intake & Output 04/10/18 04/11/18 04/11/18 18:59 06:59 18:59 Intake Total 1000 1820 Output Total 5 Balance 995 1820 Weight 82 kg Intake: IV 1000 Sodium Chloride 0.9% 1, 600 000 ml @ 75 mls/hr IV . [id number] [facility] Rx#:[id number] Intake, IV Titration 1050 Amount Ampicillin-Sulbactam 3 gm 200 In Sodium Chloride 0.9% 100 ml @ 100 mls/hr IVPB Q6HR [facility] Rx#:[id number] Sodium Chloride 0.9% 1, 850 000 ml @ 75 mls/hr IV . [id number] [facility] Rx#:[id number] Oral 770 Output: Estimated Blood Loss 5 Other: Voiding Method Diaper Diaper Diaper Incontinent Incontinent Incontinent # Voids 2 2 # Bowel Movements 0 - Exam GENERAL: The patient is alert and oriented x3, not in any acute distress. Well developed, well nourished. HEENT: Pupils are round and equally reacting to light. EOMI. No scleral icterus. No conjunctival pallor. Normocephalic, atraumatic. No pharyngeal erythema. No thyromegaly. CARDIOVASCULAR: S1 and S2 present. No murmurs, rubs, or gallops. PULMONARY: Chest is clear to auscultation, no wheezing or crackles. ABDOMEN: Soft, nontender, nondistended, normoactive bowel sounds. No palpable organomegaly. MUSCULOSKELETAL: No joint swelling or deformity. EXTREMITIES: No cyanosis, clubbing, or pedal edema. NEUROLOGICAL: Gross neurological examination did not reveal any focal deficits. SKIN: No rashes. - Labs CBC & Chem 7: 04/11/18 06:57 04/11/18 06:57 Labs: Abnormal Lab Results - Last 24 Hours (Table) 04/11/18 04/11/18 Range/Units 06:57 06:57 RBC 3.67 L (3.80-5.40) m/uL Lymphocytes # 0.8 L (1.0-4.8) k/uL Sodium 146 H (137-145) mmol/L Chloride 113 H (98-107) mmol/L Calcium 8.3 L (8.4-10.2) mg/dL Microbiology - Last 24 Hours (Table) 04/06/18 13:50 Blood Culture - Preliminary Blood No Growth after 96 hours Assessment and Plan Plan: -possible Rectal abscess, 7 x 2 centimeter and 3 cm perianal abscess on CAT scan of the abdomen and pelvis. patient had low-grade fever of 100.4. surgical consult is appreciated and surgical exploration was done and 04/10/2018 and no abscess was found and they recommended colonoscopy, continue with Unasyn with ID recommendation is appreciated. WBC 20.9 K down to 7.3 K -Possible GI bleed, GI consult was called and endoscopy is planned as inpatient for now. Hemoglobin and vitals are stable -possible fall, however when asked the patient she denies a no, she denies to me loss of consciousness, continue with conservative management -hyperlipidemia continue with Lipitor Hypertension continue with lisinopril and nifedipine DVT prophylaxis subcutaneous heparin GI prophylaxis on Protonix prognosis is guarded
--- NOTE | 2018-04-11 13:16 | P.PN ---
<Renee Corral M - Last Filed: 04/11/18 13:17> Subjective Progress Note Date: 04/11/18 73-year-old female seen and examined the bedside patient agreed to have the rectal area examined to nursing assistance at the bedside patient turned onto her side rectal biopsy site draining non-odorous creamy colored drainage patient is status post April 10 exam under anesthesia with rectal biopsies for a perirectal abscess. Findings showed appearance of ischemic colitis no obvious abscess could be palpated nursing reports the patient has had a bowel movement incontinent of urine afebrile temp is 97.8 patient has had a history of a prior CVA with cognitive impairment Objective - Vital Signs Vital signs: Vital Signs Temp 97.8 F 04/11/18 07:00 Pulse 66 04/11/18 07:00 Resp 18 04/11/18 07:00 BP 135/69 04/11/18 07:00 Pulse Ox 93 L 04/11/18 07:00 Intake & Output 04/10/18 04/11/18 04/11/18 18:59 06:59 18:59 Intake Total 1000 1820 Output Total 5 Balance 995 1820 Weight 82 kg Intake: IV 1000 Sodium Chloride 0.9% 1, 600 000 ml @ 75 mls/hr IV . [id number] [facility] Rx#:[id number] Intake, IV Titration 1050 Amount Ampicillin-Sulbactam 3 gm 200 In Sodium Chloride 0.9% 100 ml @ 100 mls/hr IVPB Q6HR [facility] Rx#:[id number] Sodium Chloride 0.9% 1, 850 000 ml @ 75 mls/hr IV . [id number] [facility] Rx#:[id number] Oral 770 Output: Estimated Blood Loss 5 Other: Voiding Method Diaper Diaper Diaper Incontinent Incontinent Incontinent # Voids 2 2 # Bowel Movements 0 - Exam Physical exam 73-year-old female resting in bed and currently is cooperative with rectal exam Lungs adequate air movement currently on room air Heart S1-S2 audible regular Abdomen obese soft nontender no nausea no vomiting incontinently urine Rectum peritoneal red biopsy site draining creamy secretions incontinent urine no blood noted in the diaper Extremities no edema noted - Labs CBC & Chem 7: 04/11/18 06:57 04/11/18 06:57 Labs: Abnormal Lab Results - Last 24 Hours (Table) 04/11/18 04/11/18 Range/Units 06:57 06:57 RBC 3.67 L (3.80-5.40) m/uL Lymphocytes # 0.8 L (1.0-4.8) k/uL Sodium 146 H (137-145) mmol/L Chloride 113 H (98-107) mmol/L Calcium 8.3 L (8.4-10.2) mg/dL Microbiology - Last 24 Hours (Table) 04/06/18 13:50 Blood Culture - Preliminary Blood No Growth after 96 hours Assessment and Plan Assessment: Impression Status post under general anesthesia rectal biopsy showing evidence of severe colitis of the rectum with no abscess noted in the perianal area Is to the prior CVA with cognitive impairment with hemiparesis Present on admission rectal bleeding Urinary tract infection Plan Continue DVT and GI prophylaxis. Patient would benefit from a colonoscopy IV antibiotics Unasyn per infectious diseases recommendations We'll follow with you with further surgical recommendations pending clinical course Progress note being dictated for Dr. Arnold rounding on behalf of dr sagastume The above impression and plan of care have been discussed and directed by signing physician. Renee Corral nurse practitioner acting as scribe for signing physician. <Maryann Arnold N - Last Filed: 04/11/18 21:29> Objective - Vital Signs Vital signs: Vital Signs Temp 98.3 F 04/11/18 20:50 Pulse 61 04/11/18 20:50 Resp 18 04/11/18 20:50 BP 132/78 04/11/18 20:50 Pulse Ox 92 L 04/11/18 20:50 Intake & Output 04/11/18 04/11/18 04/12/18 06:59 18:59 06:59 Intake Total 1820 870 Balance 1820 870 Weight 82 kg Intake: IV 600 Sodium Chloride 0.9% 1, 600 000 ml @ 75 mls/hr IV . [id number] [facility] Rx#:[id number] Intake, IV Titration 1050 100 Amount Ampicillin-Sulbactam 3 gm 200 100 In Sodium Chloride 0.9% 100 ml @ 100 mls/hr IVPB Q6HR [facility] Rx#:[id number] Sodium Chloride 0.9% 1, 850 000 ml @ 75 mls/hr IV . [id number] [facility] Rx#:[id number] Oral 770 170 Other: Voiding Method Diaper Diaper Incontinent Incontinent # Voids 2 2 - Labs CBC & Chem 7: 04/11/18 06:57 04/11/18 06:57 Labs: Abnormal Lab Results - Last 24 Hours (Table) 04/11/18 04/11/18 Range/Units 06:57 06:57 RBC 3.67 L (3.80-5.40) m/uL Lymphocytes # 0.8 L (1.0-4.8) k/uL Sodium 146 H (137-145) mmol/L Chloride 113 H (98-107) mmol/L Calcium 8.3 L (8.4-10.2) mg/dL Microbiology - Last 24 Hours (Table) 04/06/18 13:50 Blood Culture - Preliminary Blood No Growth after 120 hours
[2018-04-11] MEDS: ATORVASTATIN 40 MG TAB PO SCH (20:51)
[2018-04-11] MEDS: HEPARIN SODIUM,PORCINE 5,000 UNIT/ML 1 ML VIAL SQ SCH (20:51)
[2018-04-11] MEDS: AMMONIUM LACTATE 12% LOTION 225 GM BTL TOPICAL SCH (20:52)
--- NOTE | 2018-04-11 22:50 | P.PN ---
Progress Note - Text Progress Note Date: 04/11/18 No new complaints. No further surgical intervention needed at this time.
--- NOTE | 2018-04-12 00:43 | PN ---
PROGRESS NOTE DATE OF SERVICE: 04/11/2018. REASON FOR FOLLOWUP VISIT: Perirectal abscess and ischemic proctitis. INTERVAL HISTORY: The patient is currently afebrile. She seemed to be breathing comfortably. Not a very good historian. No chest pain or any cough. Denies abdominal pain. No nausea, vomiting or diarrhea has been noted. EXAMINATION: Blood pressure 132/78 with a pulse of 61, temperature 98.3. She is 92% on room air. General description is a middle aged female, lying in bed in no distress. RESPIRATORY SYSTEM: Unlabored breathing, clear to auscultation anteriorly. HEART: S1, S2. Regular rate and rhythm. ABDOMEN: Soft, no tenderness. Slightly distended. No guarding or rigidity. LABS: Hemoglobin 11.4, white count 7.3, BUN of 15, creatinine 0.72. DIAGNOSTIC IMPRESSION AND PLAN: Patient admitted with hospital with fever and sepsis with concern for possible perirectal abscess; however, the patient did have evaluation by General Surgery with concern for possible ischemic proctitis. Biopsy has been obtained. We will await for it to finalize. Will keep the patient on Unasyn at this point. Continue supportive care. MMODL / IJN: [id number] /
[2018-04-12] MEDS: AMPICILLIN-SULBACTAM 3 GM in SODIUM CHLORIDE 0.9% 100 ML IVPB SCH ×5 (01:06→23:39)
[2018-04-12] MEDS: HYDROcodone/APAP 10-325MG 1 EACH TAB PO PRN ×3 (01:07→16:13)
[2018-04-12] MEDS: KETOROLAC 30 MG/ML 1 ML VIAL IVP PRN ×3 (08:02→20:12)
[2018-04-12] MEDS: FLUTICASONE 50MCG/SPRAY NASAL 16GM EA NOSTRIL SCH (08:05)
[2018-04-12] MEDS: PANTOPRAZOLE 40 MG/10 ML VIAL IV SCH (08:05)
[2018-04-12] MEDS: HEPARIN SODIUM,PORCINE 5,000 UNIT/ML 1 ML VIAL SQ SCH ×2 (08:09→20:11)
[2018-04-12 08:17] LABS: Basophils % (A) 0 %; Eosinophils # (A) 0.2 k/uL (0-0.7); Eosinophils % (A) 3 %; HCT 33.6 % (34.0-46.0); HGB 10.8 gm/dL (11.4-16.0); Lymphocytes % (A) 14 %; MCHC 32.2 g/dL (31.0-37.0); MCV 93.4 fL (80.0-100.0); Monocytes # (A) 0.6 k/uL (0-1.0); Monocytes % (A) 8 %; Neutrophils # (A) 5.3 k/uL (1.3-7.7); Neutrophils % (A) 73 %; Platelet Count 151 k/uL (150-450); RDW 13.1 % (11.5-15.5); WBC 7.2 k/uL (3.8-10.6)
[2018-04-12 08:23] LABS: Anion Gap 10 mmol/L; Blood Urea Nitrogen 15 mg/dL (7-17); Calcium 8.3 mg/dL (8.4-10.2); Carbon Dioxide 20 mmol/L (22-30); Chloride 115 mmol/L (98-107); Glucose 82 mg/dL (74-99); Potassium 3.7 mmol/L (3.5-5.1); Sodium 145 mmol/L (137-145)
--- NOTE | 2018-04-12 08:55 | P.PN ---
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 Abdominal exam looks soft Objective - Vital Signs Vital signs: Vital Signs Temp 98.3 F 04/12/18 06:32 Pulse 65 04/12/18 06:32 Resp 16 04/12/18 06:32 BP 121/65 04/12/18 06:32 Pulse Ox 93 L 04/12/18 06:32 Intake & Output 04/11/18 04/12/18 04/12/18 18:59 06:59 18:59 Intake Total 870 560 Balance 870 560 Weight 82 kg Intake: IV 600 Sodium Chloride 0.9% 1, 600 000 ml @ 75 mls/hr IV . [id number] [facility] Rx#:[id number] Intake, IV Titration 100 Amount Ampicillin-Sulbactam 3 gm 100 In Sodium Chloride 0.9% 100 ml @ 100 mls/hr IVPB Q6HR [facility] Rx#:[id number] Oral 170 560 Other: Voiding Method Diaper Diaper Incontinent Incontinent # Voids 2 1 - Exam GENERAL: The patient is alert and oriented x3, not in any acute distress. Well developed, well nourished. HEENT: Pupils are round and equally reacting to light. EOMI. No scleral icterus. No conjunctival pallor. Normocephalic, atraumatic. No pharyngeal erythema. No thyromegaly. CARDIOVASCULAR: S1 and S2 present. No murmurs, rubs, or gallops. PULMONARY: Chest is clear to auscultation, no wheezing or crackles. ABDOMEN: Soft, nontender, nondistended, normoactive bowel sounds. No palpable organomegaly. MUSCULOSKELETAL: No joint swelling or deformity. EXTREMITIES: No cyanosis, clubbing, or pedal edema. NEUROLOGICAL: Gross neurological examination did not reveal any focal deficits. SKIN: No rashes. - Labs CBC & Chem 7: 04/12/18 07:26 04/12/18 07:26 Labs: Abnormal Lab Results - Last 24 Hours (Table) 04/12/18 04/12/18 Range/Units 07:26 07:26 RBC 3.60 L (3.80-5.40) m/uL Hgb 10.8 L (11.4-16.0) gm/dL Hct 33.6 L (34.0-46.0) % Chloride 115 H (98-107) mmol/L Carbon Dioxide 20 L (22-30) mmol/L Calcium 8.3 L (8.4-10.2) mg/dL Microbiology - Last 24 Hours (Table) 04/06/18 13:50 Blood Culture - Preliminary Blood No Growth after 120 hours Assessment and Plan Plan: -possible Rectal abscess, 7 x 2 centimeter and 3 cm perianal abscess on CAT scan of the abdomen and pelvis. patient had low-grade fever of 100.4. surgical consult is appreciated and surgical exploration was done and 04/10/2018 and no abscess was found and they recommended colonoscopy, continue with Unasyn with ID recommendation is appreciated. WBC 20.9 K down to 7.3 K -Possible GI bleed, surgical consult was called and endoscopy is not planned as inpatient for now. Hemoglobin and vitals are stable -possible fall, however when asked the patient she denies a no, she denies to me loss of consciousness, continue with conservative management -hyperlipidemia continue with Lipitor -Hypertension continue with lisinopril and nifedipine DVT prophylaxis subcutaneous heparin GI prophylaxis on Protonix prognosis is guarded
[2018-04-12] MEDS: LORATADINE 10 MG TAB PO SCH (09:25)
[2018-04-12] MEDS: ALPRAZolam 0.25 MG TAB PO PRN (09:25)
[2018-04-12] MEDS: ALLOPURINOL 100 MG TAB PO SCH (09:25)
[2018-04-12] MEDS: LEVOTHYROXINE 100 MCG TAB PO SCH (09:26)
[2018-04-12] MEDS: PHENYTOIN SODIUM EXTENDED 100 MG CAP PO SCH ×2 (09:26→16:14)
[2018-04-12] MEDS: LISINOPRIL 5 MG TAB PO SCH (09:26)
[2018-04-12] MEDS: GABAPENTIN 300 MG CAP PO SCH ×2 (09:26→16:15)
[2018-04-12] MEDS: NYSTATIN 100,000 UNIT/GM POWD 15 GM TOPICAL SCH ×2 (09:27→20:12)
--- NOTE | 2018-04-12 10:16 | XR ---
EXAMINATION TYPE: XR abdomen 2V DATE OF EXAM: 04/12/2018 CLINICAL HISTORY: Abdominal pain and distention TECHNIQUE: Supine and upright views of the abdomen are obtained. COMPARISON: CT abdomen and pelvis from 6 days ago. FINDINGS: Exam is suboptimal secondary to patient's large body habitus. Scattered gas is seen in non- distended stomach and small bowel loops. Gas is seen in non-distended colon along the periphery. Met allic hardware right hip level is partially imaged. There is moderate to advanced axial joint space l oss in both hips, left slightly worse than right. Vascular calcification left upper quadrant present correlating with calcified splenic artery aneurysm. No pneumoperitoneum is identified. Cardiomegaly i s seen. IMPRESSION: Overall nonobstructive bowel gas pattern. No significant change from recent CT.
[2018-04-12 11:36] LABS: ABG Base Excess -2.4 mmol/L; ABG HCO3 22 mmol/L (21-25); ABG Oxygen Saturation 89.6 % (94-97); ABG PCO2 34 mmHg (35-45); ABG PH 7.42 (7.35-7.45); ABG PO2 54 mmHg (83-108); ABG TCO2 23 mmol/L (19-24)
[2018-04-12] MEDS: IOPAMIDOL-300 CONTRAST 30 ML VIAL (ORAL USE) PO PRN ×2 (13:00→14:11)
--- NOTE | 2018-04-12 14:03 | P.PN ---
<Renee Corral M - Last Filed: 04/12/18 13:50> Subjective Progress Note Date: 04/12/18 73-year-old seen this morning abdomen is noted to be more distended and firm no nausea no vomiting patient has past medical history of a CVA with right side weakness needs assistance with most of ADLs. Patient was sent to the hospital with a possible lower GI bleed with rectal bleeding. X-ray this morning of the abdomen no significant change from her recent CAT scan Patient status post April 10 under anesthesia had rectal biopsies done for a possible perirectal abscess reviewing the operative note indicates that the finding showed appearance of ischemic colitis no obvious abscess could be palpated. Objective - Vital Signs Vital signs: Vital Signs Temp 98.3 F 04/12/18 06:32 Pulse 70 04/12/18 08:00 Resp 16 04/12/18 08:00 BP 121/65 04/12/18 06:32 Pulse Ox 93 L 04/12/18 06:32 Intake & Output 04/11/18 04/12/18 04/12/18 18:59 06:59 18:59 Intake Total 870 560 Balance 870 560 Weight 82 kg Intake: IV 600 Sodium Chloride 0.9% 1, 600 000 ml @ 75 mls/hr IV . [id number] [facility] Rx#:[id number] Intake, IV Titration 100 Amount Ampicillin-Sulbactam 3 gm 100 In Sodium Chloride 0.9% 100 ml @ 100 mls/hr IVPB Q6HR [facility] Rx#:[id number] Oral 170 560 Other: Voiding Method Diaper Diaper Diaper Incontinent Incontinent Incontinent # Voids 2 1 - Exam Physical exam 73-year-old female resting in bed patient just returned from x-ray Lungs adequate air movement currently on room air Heart S1-S2 audible regular Abdomen obese soft slightly distended reportedly experiencing lower abdominal discomfort nontender no nausea no vomiting incontinently urine no stool Rectum peritoneal red biopsy site draining creamy secretions incontinent urine no blood noted in the diaper Extremities no edema noted - Labs CBC & Chem 7: 04/12/18 07:26 04/12/18 07:26 Labs: Abnormal Lab Results - Last 24 Hours (Table) 04/12/18 04/12/18 04/12/18 Range/Units 07:26 07:26 11:30 RBC 3.60 L (3.80-5.40) m/uL Hgb 10.8 L (11.4-16.0) gm/dL Hct 33.6 L (34.0-46.0) % ABG pCO2 34 L (35-45) mmHg ABG pO2 54 L (83-108) mmHg ABG O2 Saturation 89.6 L (94-97) % Chloride 115 H (98-107) mmol/L Carbon Dioxide 20 L (22-30) mmol/L Calcium 8.3 L (8.4-10.2) mg/dL Microbiology - Last 24 Hours (Table) 04/06/18 13:50 Blood Culture - Preliminary Blood No Growth after 120 hours Assessment and Plan Assessment: Impression Status post under general anesthesia rectal biopsy showing evidence of severe colitis of the rectum with no abscess noted in the perianal area done on April 10 prior CVA with cognitive impairment with right hemiparesis Present on admission rectal bleeding Urinary tract infection Plan Continue DVT and GI prophylaxis. Patient would benefit from a colonoscopy IV antibiotics Unasyn per infectious diseases recommendations We'll follow with you with further surgical recommendations pending clinical course Progress note being dictated for Dr. Arnold rounding on behalf of dr sagastume The above impression and plan of care have been discussed and directed by signing physician. Renee Corral nurse practitioner acting as scribe for signing physician. <Maryann Arnold N - Last Filed: 04/12/18 17:32> Objective - Vital Signs Vital signs: Vital Signs Temp 97.7 F 04/12/18 14:15 Pulse 68 04/12/18 16:00 Resp 18 04/12/18 16:00 BP 142/80 04/12/18 14:15 Pulse Ox 90 L 04/12/18 14:15 Intake & Output 04/11/18 04/12/18 04/12/18 18:59 06:59 18:59 Intake Total 870 560 Output Total 1000 Balance 870 560 -1000 Weight 82 kg 82 kg Intake: IV 600 Sodium Chloride 0.9% 1, 600 000 ml @ 75 mls/hr IV . [id number] [facility] Rx#:[id number] Intake, IV Titration 100 Amount Ampicillin-Sulbactam 3 gm 100 In Sodium Chloride 0.9% 100 ml @ 100 mls/hr IVPB Q6HR [facility] Rx#:[id number] Oral 170 560 Output: Urine 1000 Other: Voiding Method Diaper Diaper Diaper Incontinent Incontinent Incontinent # Voids 2 1 1 # Bowel Movements 0 - Labs CBC & Chem 7: 04/12/18 07:26 04/12/18 07:26 Labs: Abnormal Lab Results - Last 24 Hours (Table) 04/12/18 04/12/18 04/12/18 Range/Units 07:26 07:26 11:30 RBC 3.60 L (3.80-5.40) m/uL Hgb 10.8 L (11.4-16.0) gm/dL Hct 33.6 L (34.0-46.0) % ABG pCO2 34 L (35-45) mmHg ABG pO2 54 L (83-108) mmHg ABG O2 Saturation 89.6 L (94-97) % Chloride 115 H (98-107) mmol/L Carbon Dioxide 20 L (22-30) mmol/L Calcium 8.3 L (8.4-10.2) mg/dL Urine Protein (Negative) Urine Mucus (None) /hpf 04/12/18 Range/Units 16:42 RBC (3.80-5.40) m/uL Hgb (11.4-16.0) gm/dL Hct (34.0-46.0) % ABG pCO2 (35-45) mmHg ABG pO2 (83-108) mmHg ABG O2 Saturation (94-97) % Chloride (98-107) mmol/L Carbon Dioxide (22-30) mmol/L Calcium (8.4-10.2) mg/dL Urine Protein 1+ H (Negative) Urine Mucus Rare H (None) /hpf Microbiology - Last 24 Hours (Table) 04/06/18 13:50 Blood Culture - Final Blood No Growth after 144 hours Assessment and Plan Plan: CT of the abdomen reviewed. No free air noted. Sirena-rectal inflammation noted. Patient recently underwent exam under anesthesia. Continue antibiotics. No surgical intervention at this time.
--- NOTE | 2018-04-12 14:35 | US ---
EXAMINATION TYPE: US venous doppler duplex LE RT DATE OF EXAM: 04/09/2018 12:08 PM COMPARISON: NONE CLINICAL HISTORY: right lower extremity edema. SIDE PERFORMED: Right TECHNIQUE: The lower extremity deep venous system is examined utilizing real time linear array sonog melody with graded compression, doppler sonography and color-flow sonography. VESSELS IMAGED: External Iliac Vein (EIV) Common Femoral Vein Deep Femoral Vein Greater Saphenous Vein * Femoral Vein Popliteal Vein Small Saphenous Vein * Proximal Calf Veins (* superficial vessels) Limited exam due to extensive edema making vessels difficult to see for compression imaging. Addition al color imaging performed due to not being able to see pop veins for compression imaging. Right Leg: Negative for DVT Grayscale, color doppler, spectral doppler imaging performed of the deep veins of the right lower ext remity. There is normal flow and vascular waveforms. IMPRESSION: Suboptimal study without ultrasound evidence for acute DVT in the right lower extremity.
[2018-04-12] MEDS: LIDOCAINE 5% PATCH TOPICAL SCH (15:07)
[2018-04-12] MEDS: BISACODYL 10 MG SUPP RECTAL SCH (15:52)
--- NOTE | 2018-04-12 16:29 | CT ---
EXAMINATION TYPE: CT abdomen pelvis w con DATE OF EXAM: 04/12/2018 HISTORY: Posterior pelvic pain CT DLP: 2062.7mGycm Automated Exposure Control for Dose Reduction was Utilized. CONTRAST: CT scan of the abdomen and pelvis is performed with IV Contrast, patient injected with 100 mL of Isov ue 300. COMPARISON: 04/06/2018. FINDINGS: LUNG BASES: There are at least small bilateral pleural effusions partially visualized, right greater than left. There is associated bibasilar compressive atelectasis that appears to enhance greater than paraspinal musculature. LIVER/GB: There is increase in degree of perihepatic fluid although still very small volume with smal l amount of pelvic ascites and fluid layering down the left lateral conal fascia. There is decreased attenuation of the hepatic parenchyma in comparison to that of the spleen most commonly representativ e of mild hepatic steatosis although this can be seen in other hepatocellular diseases. This limits e valuation for hepatic masses. PANCREAS: No significant abnormality is seen. 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 ADRENALS: No significant abnormality is seen. KIDNEYS: Cortical renal thinning is noted on the right as seen on the prior. Otherwise the kidneys en rosa isela symmetrically without hydronephrosis. BOWEL: Bowel is nondilated. Follow-up thickening of the rectum partially relates to incomplete disten tion and partially relates to the known proctitis. Small more well-defined 2.3 x 1.9 cm right lateral perirectal abscess is seen in image 1 of series 9. Possible small sinus tract is seen more posterior ly. The previously noted presacral fluid collection likely simply relates to fluid overload, inflamma tory change, and edema as there is no discrete measurable fluid collection. Soft tissue fullness arou nd the subcutaneous tissues of the rectum is favored to represent phlegmonous change. No subcutaneous emphysema. UTERUS/ADNEXA: Endometrium is prominent given the patient's age and could be further evaluated with u ltrasound. LYMPH NODES: No greater than 1cm abdominal or pelvic lymph nodes are appreciated. OSSEOUS STRUCTURES: Multilevel moderate degenerative changes of the femoral acetabular joint and lumb ar spine are seen with surgical fixation of the right hip. OTHER: Again there is a hyperdense 9 mm lesion within the right posterior lateral urinary bladder wal l unchanged from the prior for which direct visualization could be performed with cystoscopy. There i s slightly increased body wall edema is seen dependently on the right. Extensive atherosclerosis is seen of the abdominal aorta and its branches. IMPRESSION: 1. Right paracentral small 2.3 x 1.9 cm pararectal abscess is more discretely defined on today's exam ination than the prior with surrounding proctitis, phlegmonous changes within the superficial subcuta neous tissues surrounding the anal verge, and possible very small sinus tract to the skin surface. Th e previously seen presacral space fluid collection appears as presacral edema on today's examination with no additional presacral abscess. 2. Increase degree of fluid overload in comparison to the prior with increasing pleural effusions, pa rtially visualized, increasing anasarca and increasing small volume abdominopelvic ascites. 3. Prominent endometrial thickness given the patient's age for which further evaluation with pelvic u ltrasound could be performed. 4. Redemonstration of a 9 mm lesion within the right posterior urinary bladder. Again further evaluat ion with CT urogram or direct visualization recommended.
[2018-04-12 16:57] LABS: Appearance,Urine Clear (Clear); Bilirubin,Urine Negative (Negative); Blood,Urine Negative (Negative); Color,Urine Yellow; Glucose,Urine (UA) Negative (Negative); Granular Casts,Urine 1 /lpf (0); Ketones,Urine Negative (Negative); Leukocyte Esterase,Urine Negative (Negative); Mucus,Urine Rare /hpf; Nitrite,Urine Negative (Negative); Protein,Urine 1+ (Negative); RBC,Urine 3 /hpf (0-5); Specific Gravity,Urine 1.028 (1.001-1.035); Squamous Epithelial Cell,Urine 3 /hpf (0-4); Urobilinogen,Urine <2.0 mg/dL (<2.0); WBC,Urine 2 /hpf (0-5)
--- NOTE | 2018-04-12 17:15 | XR ---
EXAMINATION TYPE: XR chest 2V DATE OF EXAM: 04/12/2018 COMPARISON: 04/06/2018 HISTORY: Cough and congestion TECHNIQUE: Frontal and lateral views of the chest are obtained. FINDINGS: Heart is enlarged. There is some right upper lobe infiltrate and atelectasis. There is pul monary vascular congestion. There is blunting of costophrenic angles. Exam is limited by the patient' s size. IMPRESSION: Congestive heart failure with some right upper lobe infiltrate and atelectasis. Heart fa ilure and infiltrate are new compared to last exam.
[2018-04-12] MEDS ORDERED: FUROSEMIDE 10 MG/ML 4 ML VIAL IV STA (17:33)
[2018-04-12] MEDS: IPRATROPIUM 0.5 MG/2.5 ML NEBU INHALATION SCH (19:38)
[2018-04-12] MEDS: ATORVASTATIN 40 MG TAB PO SCH (20:11)
[2018-04-12] MEDS: AMMONIUM LACTATE 12% LOTION 225 GM BTL TOPICAL SCH (20:12)
--- NOTE | 2018-04-12 21:44 | PN ---
PROGRESS NOTE DATE OF SERVICE: 04/12/2018. REASON FOR FOLLOWUP: Perirectal abscess and proctitis, ischemic. INTERVAL HISTORY: The patient is afebrile. She seems to be having more agitation today. No nausea, vomiting. Has noted some abdominal distention. Oral intake remains to be poor. EXAMINATION: Blood pressure 142/80 with a pulse of 68, temperature of 97.7. She is 90% on 2L nasal cannula. General description is an elderly female lying in bed in no distress. RESPIRATORY SYSTEM: Unlabored breathing. Clear to auscultation. HEART: S1, S2. Regular rate and rhythm. ABDOMEN: Slightly distended bilaterally. EXTREMITIES: No edema of feet. Perirectal area with minimal erythema on the left buttock with a necrotic area, but no drainage. LABS: Hemoglobin is 10, white count 7.2 with a BUN of 15, creatinine 0.71. The patient did have a repeat CT which did show spontaneous rectal abscess. DIAGNOSTIC IMPRESSION AND PLAN: Patient with a perirectal abscess with question of ischemic proctitis status post a colonoscopy. Repeat CT did show evidence of small abscess. Surgery has review the CT and did not recommend any drainage at this point. She will continue with Unasyn and will watch her clinical course closely. Continue supportive care. MMODL / IJN: [id number] /
[2018-04-13] MEDS: KETOROLAC 30 MG/ML 1 ML VIAL IVP PRN (05:00)
[2018-04-13] MEDS: AMPICILLIN-SULBACTAM 3 GM in SODIUM CHLORIDE 0.9% 100 ML IVPB SCH ×3 (05:29→17:32)
--- NOTE | 2018-04-13 09:29 | P.PN ---
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 Abdominal exam looks soft 6 2017 Patient this morning looks clinically the same. She is a thin distress. Overnight her oxygen was on the low side. Repeat chest x-ray showed CHF and possible pneumonia. Patient already on Unasyn. She was started on IV Lasix and check echo. Also patient had CT abdomen and pelvis repeated yesterday which showing tiny up stenosis in the perirectal area, thickened endometrium and urinary bladder lesions on the posterior wall Objective - Vital Signs Vital signs: Vital Signs Temp 97.9 F 04/13/18 06:20 Pulse 75 04/13/18 06:20 Resp 20 04/13/18 06:20 BP 144/66 04/13/18 06:20 Pulse Ox 93 L 04/13/18 06:20 Intake & Output 04/12/18 04/13/18 04/13/18 18:59 06:59 18:59 Intake Total 480 Output Total 1000 2 Balance -1000 478 Weight 82 kg Intake: Intake, IV Titration 100 Amount Ampicillin-Sulbactam 3 gm 100 In Sodium Chloride 0.9% 100 ml @ 100 mls/hr IVPB Q6HR [facility] Rx#:[id number] Oral 380 Output: Urine 1000 Stool 1 Urine/Stool Mix 1 Other: Voiding Method Diaper Diaper Incontinent Incontinent # Voids 1 1 # Bowel Movements 0 1 - Exam GENERAL: The patient is alert and oriented x3, not in any acute distress. Well developed, well nourished. HEENT: Pupils are round and equally reacting to light. EOMI. No scleral icterus. No conjunctival pallor. Normocephalic, atraumatic. No pharyngeal erythema. No thyromegaly. CARDIOVASCULAR: S1 and S2 present. No murmurs, rubs, or gallops. PULMONARY: Chest is clear to auscultation, no wheezing or crackles. ABDOMEN: Soft, nontender, nondistended, normoactive bowel sounds. No palpable organomegaly. MUSCULOSKELETAL: No joint swelling or deformity. EXTREMITIES: No cyanosis, clubbing, or pedal edema. NEUROLOGICAL: Gross neurological examination did not reveal any focal deficits. SKIN: No rashes. - Labs CBC & Chem 7: 04/12/18 07:26 04/12/18 07:26 Labs: Abnormal Lab Results - Last 24 Hours (Table) 04/12/18 04/12/18 Range/Units 11:30 16:42 ABG pCO2 34 L (35-45) mmHg ABG pO2 54 L (83-108) mmHg ABG O2 Saturation 89.6 L (94-97) % Urine Protein 1+ H (Negative) Urine Mucus Rare H (None) /hpf Microbiology - Last 24 Hours (Table) 04/06/18 13:50 Blood Culture - Final Blood No Growth after 144 hours Assessment and Plan Plan: -possible Rectal abscess, 7 x 2 centimeter and 3 cm perianal abscess on CAT scan of the abdomen and pelvis. patient had low-grade fever of 100.4. surgical consult is appreciated and surgical exploration was done and 04/10/2018 and no abscess with suspicion of proctitis and they recommended colonoscopy, continue with Unasyn with ID recommendation is appreciated. WBC 20.9 K down to 7.3 K -Possible GI bleed, surgical consult was called and endoscopy is not planned as inpatient for now. Hemoglobin and vitals are stable -possible fall, however when asked the patient she denies a no, she denies to me loss of consciousness, continue with conservative management -Possible CHF on chest x-ray, oxygen saturations at 93% on 2 L via nasal cannula. Patient is started on IV Lasix 60 mg daily. We'll check an echo -Thick endometrium computed tomography scan, patient denies vagina bleeding or discharge. We'll check transvaginal US: Pending -Urinary bladder lesions of 9 mm on the posterior wall and the recommended CT urogram (patient recently got contrast into the veins) -hyperlipidemia continue with Lipitor -Hypertension continue with lisinopril and nifedipine Patient refused blood work on 04/13/2018 DVT prophylaxis subcutaneous heparin GI prophylaxis on Protonix prognosis is guarded
[2018-04-13] MEDS: BISACODYL 10 MG SUPP RECTAL SCH (09:34)
[2018-04-13] MEDS: FUROSEMIDE 10 MG/ML 10 ML VIAL IV SCH (09:37)
[2018-04-13] MEDS: ALLOPURINOL 100 MG TAB PO SCH (09:38)
[2018-04-13] MEDS: GABAPENTIN 300 MG CAP PO SCH ×2 (09:39→17:32)
[2018-04-13] MEDS: HEPARIN SODIUM,PORCINE 5,000 UNIT/ML 1 ML VIAL SQ SCH ×2 (09:39→20:42)
[2018-04-13] MEDS: PANTOPRAZOLE 40 MG TABLET PO SCH (09:39)
[2018-04-13] MEDS: FLUTICASONE 50MCG/SPRAY NASAL 16GM EA NOSTRIL SCH (09:39)
[2018-04-13] MEDS: LEVOTHYROXINE 100 MCG TAB PO SCH (09:40)
[2018-04-13] MEDS: LIDOCAINE 5% PATCH TOPICAL SCH (09:40)
[2018-04-13] MEDS: LORATADINE 10 MG TAB PO SCH (09:41)
[2018-04-13] MEDS: PHENYTOIN SODIUM EXTENDED 100 MG CAP PO SCH ×2 (09:41→17:32)
[2018-04-13] MEDS: LISINOPRIL 5 MG TAB PO SCH (09:41)
[2018-04-13] MEDS: NYSTATIN 100,000 UNIT/GM POWD 15 GM TOPICAL SCH ×2 (09:41→22:42)
[2018-04-13] MEDS: HYDROcodone/APAP 10-325MG 1 EACH TAB PO PRN ×2 (09:52→20:43)
[2018-04-13] MEDS: IPRATROPIUM 0.5 MG/2.5 ML NEBU INHALATION SCH ×4 (10:00→19:40)
--- NOTE | 2018-04-13 11:36 | US ---
EXAMINATION TYPE: US pelvic complete DATE OF EXAM: 04/13/2018 COMPARISON: CT 04/12/2018 CLINICAL HISTORY: abd pain. Abnormal CT TECHNIQUE: Transabdominal (TA). Limited examPt not a candidate for transvaginal ultrasound, dev elopmentally delayed and non-compliant Date of LMP: Unknown, poor historian EXAM MEASUREMENTS: Uterus: 10.4 x 3.7 x 4.8 cm Endometrial Stripe: 0.8 cm Limited exam 1. Uterus: Anteverted wnl 2. Endometrium: Upper limits of normal for post menopausal state 3. Right Ovary: Obscured by overlying bowel gas 4. Left Ovary: Obscured by overlying bowel gas 5. Bilateral Adnexa: wnl 6. Posterior cul-de-sac: wnl IMPRESSION: 1. Endometrial stripe is 0.8 cm, at the upper limits of normal for postmenopausal. 2. There is limitation on the examination discussed above
--- NOTE | 2018-04-13 12:48 | ECHOF ---
Referral Reason:Rule out heart disease MEASUREMENTS -------- HEIGHT: 152.4 cm WEIGHT: 81.6 kg BP: 144/66 IVSd: 1.1 cm (0.6 - 1.1) LVIDd: 5.3 cm (3.9 - 5.3) LVPWd: 1.4 cm (0.6 - 1.1) IVSs: 1.1 cm LVIDs: 5.2 cm LVPWs: 1.6 cm LA Diam: 4.2 cm (2.7 - 3.8) LAESV Index (A-L): 45.15 ml/m Ao Diam: 2.7 cm (2.0 - 3.7) AV Cusp: 1.7 cm (1.5 - 2.6) LA Diam: 4.7 cm (2.7 - 3.8) MV EXCURSION: 13.883 mm (> 18.000) MV EF SLOPE: 53 mm/s (70 - 150) EPSS: 1.7 cm MV E Bobby: 1.27 m/s MV DecT: 280 ms MV A Bobby: 1.10 m/s MV E/A Ratio: 1.15 RAP: 5.00 mmHg RVSP: 14.50 mmHg FINDINGS -------- Sinus rhythm. This was a techncally difficult study with suboptimal views, , Lumason utilized for enhancement of im ages. The left ventricular size is normal. Left ventricular wall thickness is normal. Overall left vent ricular systolic function is severely impaired with, an EF between 20 - 25 %. T he findings are cons istent with ischemic cardiomyopathy with only inferobasal wall moving well. Anterseptal Hypokinesis Inferiorlateral Hypokinesis Septal Hypokinesis Weaver Hypokinesis. The right ventricle is normal in size. The left atrium is mildly dilated. LA is severely dilated >40 ml/m2 The right atrial size is normal. 5.0mg OF Lumason UTLIZED: 2 OR MORE WALL SEGMENTS NOT VISUALIZED. There is mild aortic valve sclerosis. There is no evidence of aortic regurgitation. Mild mitral annular calcification present. Mild mitral regurgitation is present. Mild tricuspid regurgitation present. There is no evidence of pulmonary hypertension. The right v entricular systolic pressure, as measured by Doppler, is 14.50mmHg. There is no pulmonic regurgitation present. There is no pericardial effusion. CONCLUSIONS -------- 1. This was a techncally difficult study with suboptimal views, , Lumason utilized for enhancement of images. 2. The left ventricular size is normal. 3. Left ventricular wall thickness is normal. 4. Overall left ventricular systolic function is severely impaired with, an EF between 20 - 25 %. 5. he findings are consistent with ischemic cardiomyopathy with only inferobasal wall moving well. 6. Anterseptal Hypokinesis 7. Inferiorlateral Hypokinesis 8. Septal Hypokinesis 9. Weaver Hypokinesis. 10. The right ventricle is normal in size. 11. The left atrium is mildly dilated. 12. LA is severely dilated >40 ml/m2 13. The right atrial size is normal. 14. 5.0mg OF Lumason UTLIZED: 2 OR MORE WALL SEGMENTS NOT VISUALIZED. 15. There is mild aortic valve sclerosis. 16. Mild mitral annular calcification present. 17. Mild mitral regurgitation is present. 18. Mild tricuspid regurgitation present. 19. There is no evidence of pulmonary hypertension. 20. The right ventricular systolic pressure, as measured by Doppler, is 14.50mmHg. 21. There is no pulmonic regurgitation present. 22. There is no pericardial effusion. [employer] MANAGER: Mary Jo Hurd RDCS
--- NOTE | 2018-04-13 14:42 | PN ---
PROGRESS NOTE DATE OF SERVICE: 04/13/2018. REASON FOR FOLLOWUP: Perirectal abscess and ischemic proctitis. INTERVAL HISTORY: The patient is afebrile. Apparently little bit less agitated per the nursing staff. Some oral intake but no nausea or vomiting. Patient denies having any abdominal pain. Did have loose stool per the RN. EXAMINATION: Blood pressure 144/66, pulse of 75, temperature 97.9. She is 93% on 3 L nasal cannula. General description is an elderly female lying in bed in no distress. Respiratory system: Unlabored breathing. Clear to auscultation anteriorly. Heart S1, S2 regular rate and rhythm. Abdomen soft, mildly distended. No guarding or rigidity. LABS: No new labs have been obtained today. DIAGNOSTIC IMPRESSION AND PLAN: Patient with a perirectal abscess with complaint of small perirectal abscess currently will be treated medically. She will continue with Unasyn at this point while awaiting for condition to stabilize. Continue supportive care. MMODL / IJN: [id number] /
[2018-04-13 16:11] LABS: Ionized Calcium 4.8 mg/dL (4.5-5.3)
[2018-04-13 16:21] LABS: Albumin 3.1 g/dL (3.5-5.0); Magnesium 1.5 mg/dL (1.6-2.3); Phosphorus 3.5 mg/dL (2.5-4.5)
--- NOTE | 2018-04-13 17:12 | P.CNPUL ---
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 The patient also has history of hypothyroidism, seizure disorder, rheumatoid arthritis, hypertension and hyperlipidemia and diabetes mellitus and gout. The patient lives in a half-way setting. The patient came into the hospital because of concerns of generalized weakness and GI bleeding. The patient apparently was witnessed to have mucoid bloody stool. The volume was small. The patient had a CAT scan of the abdomen and pelvis on 04/06/2018 that showed small hiatal hernia. The loops of bowel within the abdomen and the pelvis were within normal limits. Subsequently, the patient continued to have pain in the pelvic area and there was a concern of development of a perirectal abscess. A repeat CAT scan was obtained on 2017 and it showed a right paracentral small 2.3 x 1.9 cm pararectal abscess that is most this critically defined upon the follow-up CAT scan with surrounding proctitis/phlegmon changes within the superficial subcutaneous tissue was surrounding the anal verge and possibly very small sinus tract to the skin area. The previously seen presacral space fluid collection. As presacral edema with no additional presacral abscess formation. There was also increased degree of fluid overload in comparison to the previous studies with development of bilateral pleural effusion in the lung bases and development of increasing anasarca and increase in small volume abdomen and pelvic ascites. 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 The patient is currently on antibiotics and the patient is receiving IV Unasyn. The blood culture has been negative. Echocardiogram was done today based on the findings of diffuse anasarca and [place] pulmonary infiltrates and pleural effusion and echocardiogram showed severe impairment of the left ventricular ejection fraction of 20-25% and there was also changes consistent with ischemic cardiomyopathy with inferior basilar wall being hypokinetic in addition to anteroseptal hypokinesis and inferior lateral hypokinesis. There is septal hypokinesis and apical hypokinesis. LA was severely dilated. No pericardial effusion. No other valvular abnormalities noted. The patient was started on IV Lasix and currently she is receiving 60 mg of IV Lasix every 24 hours. She is currently on today's of oxygen nasal cannula. Her sputum production. No reported aspiration.. Review of Systems ROS unobtainable: due to mental status Past Medical History Past Medical History: CVA/TIA, Diabetes Mellitus, GERD/Reflux, Hyperlipidemia, Hypertension, Renal Disease, Rheumatoid Arthritis (RA), Seizure Disorder, Thyroid Disorder Additional Past Medical History / Comment(s): CVA with expressive aphasia and right-sided hemiplegia as the patient is unable to move his right upper and right lower extremity and she is incontinent to urine and stool and she requires assistance for mobility. Diabetes mellitus, hypertension, hyperlipidemia, acid reflux, rheumatoid arthritis, seizure disorder, hypothyroidism and most recently found to be having an ischemic cardiomyopathy with an ejection fraction of 20-25%. She also has chronic back pain, vitamin D deficiency, gout, ALLERGIC rhinitis, previous wounds in the Buttock and upper thighs, frequent falls, and debility in general History of Any Multi-Drug Resistant Organisms: None Reported Past Surgical History: Orthopedic Surgery, Tonsillectomy Additional Past Surgical History / Comment(s): right hip replacement, d&c, colonoscopy Past Anesthesia/Blood Transfusion Reactions: No Reported Reaction Smoking Status: Never smoker - Past Family History Mother Family Medical History: Pneumonia, Rheumatoid Arthritis (RA) Additional Family Medical History / Comment(s): from complications of pne at age 56 Father Family Medical History: Congestive Heart Failure (CHF), Diabetes Mellitus Additional Family Medical History / Comment(s): at age 63 Medications and Allergies Home Medications Medication Instructions Recorded Confirmed Type Gabapentin [Neurontin] 300 mg PO BID@0900,1700 06/01/14 04/06/18 History NIFEdipine [NIFEdipine ER] 120 mg PO DAILY@0900 06/01/14 04/06/18 History Phenytoin Sodium Extended 100 mg PO BID@0900,1700 06/22/14 04/06/18 History [Dilantin] Acetaminophen Tab [Tylenol Tab] 650 mg PO Q8H PRN 01/26/18 04/06/18 History Allopurinol [Zyloprim] 100 mg PO DAILY@0900 01/26/18 04/06/18 History Ammonium Lactate Lotion 1 applic TOPICAL HS 01/26/18 04/06/18 History [Lac-Hydrin 12% Lotion] Aspirin 81 mg PO DAILY@0901/26/18 04/06/18 History Atorvastatin Calcium [Lipitor] 40 mg PO HS@2100 01/26/18 04/06/18 History Cholecalciferol (Vitamin D3) 2,000 unit PO DAILY@0900 01/26/18 04/06/18 History [Vitamin D3] Fluticasone Propionate [Flonase 1 spray EA NOSTRIL DAILY@89901/26/18 04/06/18 History Allergy Relief] Ipratropium [place] 0.06%Nasal 2 spray EA NOSTRIL Q24H PRN 01/26/18 04/06/18 History [Atrovent Nasal 0.06%] Levothyroxine Sodium [Synthroid] 100 mcg PO DAILY@0901/26/18 04/06/18 History Lidocaine 5% Patch [Lidoderm] 1 patch TOPICAL DAILY@89901/26/18 04/06/18 History Lisinopril [Prinivil] 5 mg PO DAILY@89901/26/18 04/06/18 History Loperamide HCl [Imodium A-D] 2 mg PO Q24H PRN 01/26/18 04/06/18 History Loratadine [Claritin] 10 mg PO DAILY@89901/26/18 04/06/18 History Methyl Salicylate/Menthol 1 patch TOPICAL QAM@89901/26/18 04/06/18 History [Salonpas Patch] Miconazole Nitrate [Lotrimin AF 1 applic TOPICAL BID 01/26/18 04/06/18 History Powder] [place]-3 Fatty Acids [[place]-3] 1,000 mg PO BID@0900,2100 01/26/18 04/06/18 History Omeprazole [PriLOSEC] 20 mg PO DAILY@89901/26/18 04/06/18 History Potassium Chloride [Klor-Con 10] 10 meq PO DAILY@89901/26/18 04/06/18 History Sodium Chloride [[place]] 1 spray EA NOSTRIL TID PRN 01/26/18 04/06/18 History Triad Hydrophilic Wound Dress 1 applic TOPICAL Q12H 01/26/18 04/06/18 History Triamterene/Hydrochlorothiazid 2 tab PO QAM@0900 01/26/18 04/06/18 History [Triamterene-Hctz 37.5-25 mg Tb] HYDROcodone/APAP 10-325MG [[place] 1 tab PO Q8H PRN 04/06/18 04/06/18 History 10-325] Allergies Allergy/AdvReac Type Severity Reaction Status Date / Time codeine Allergy Unknown Verified 04/06/18 13:40 Sulfa (Sulfonamide Allergy Unknown Verified 04/06/18 13:40 Antibiotics) Physical Exam Vitals: Vital Signs Temp Pulse Pulse Pulse Resp BP Pulse Ox 04/13/18 15:20 78 04/13/18 15:14 76 04/13/18 15:12 98.2 F 66 22 126/63 92 L 04/13/18 12:24 76 04/13/18 12:14 74 04/13/18 06:20 97.9 F 75 20 144/66 93 L 04/13/18 00:00 61 68 20 04/12/18 21:30 98.6 F 61 22 142/68 96 04/12/18 19:48 81 16 04/12/18 19:38 84 16 Intake and Output 04/13/18 04/13/18 04/13/18 06:59 14:59 22:59 Intake Total 160 Output Total 2 Balance 158 Intake: Intake, IV Titration 100 Amount Ampicillin-Sulbactam 3 gm 100 In Sodium Chloride 0.9% 100 ml @ 100 mls/hr IVPB Q6HR [facility] Rx#:[id number] Oral 60 Output: Stool 1 Urine/Stool Mix 1 Other: Voiding Method Diaper Incontinent # Voids 1 3 # Bowel Movements 2 Weight 82 kg General appearance: The patient is alert, combative when moved or assessed screams loudly. Dysarthria. Unable to communicate effectively. HET: Head is normocephalic and atraumatic. Pupils are equal and reactive. Oropharynx is clear without lesions. Neck: Supple without lymphadenopathy. Trachea midline. Heart: S1 S2. Regular rate and rhythm. Lungs: Diminished breath sounds along with limited contact lung bases bilaterally. Abdomen: Soft, nontender, nondistended with bowel sounds. No peritoneal signs. No palpable organomegaly or masses. Extremities: Excoriated perirectal coccyx region with superficial wounds. Neurological: Right hemophoresis or emesis. Rectal: Edematous anal orifice with serosanguineous drainage. No obvious rectal prolapse. No mele blood. No melena. Patient was not compliant with exam combative; limited exam no palpable rectal masses possible internal hemorrhoids fissure appearance near 12 o'clock position. Diaper saturated with dark colored urine possible component of hematuria. Results - Laboratory Findings CBC and BMP: 04/12/18 07:26 04/12/18 07:26 ABG ABG pH 7.42 (7.35-7.45) 04/12/18 11:30 ABG pCO2 34 mmHg (35-45) L 04/12/18 11:30 ABG pO2 54 mmHg (83-108) L 04/12/18 11:30 ABG O2 Saturation 89.6 % (94-97) L 04/12/18 11:30 PT/INR, D-dimer PT 10.0 sec (9.0-12.0) 04/06/18 14:00 INR 1.0 (<1.2) 04/06/18 14:00 Abnormal lab findings: Abnormal Labs 04/06/18 04/06/18 04/06/18 13:00 13:20 13:50 WBC RBC Hgb Hct Plt Count Neutrophils # Neutrophils # (Manual) Lymphocytes # Monocytes # (Manual) APTT ABG pCO2 ABG pO2 ABG O2 Saturation Sodium Potassium Chloride Carbon Dioxide 18 L BUN 45 H Creatinine 1.20 H Glucose 135 H POC Glucose (mg/dL) Plasma Lactic Acid Kurt Calcium Magnesium AST 51 H ALT 56 H Troponin I Albumin Triglycerides Carcinoembryonic Ag Urine Appearance Turbid H Urine Protein 1+ H Urine Ketones Trace H Urine Blood Moderate H Urine Bilirubin 1+ H Ur Leukocyte Esterase Large H Urine WBC 157 H Urine WBC Clumps Many H Ur Squamous Epith Cells 8 H Urine Bacteria Moderate H Hyaline Casts 7 H Urine Mucus Rare H Stool Occult Blood Positive H 04/06/18 04/06/18 04/06/18 13:50 14:00 14:00 WBC 20.9 H RBC Hgb Hct 46.2 H Plt Count 149 L Neutrophils # Neutrophils # (Manual) 15.80 H Lymphocytes # Monocytes # (Manual) 3.76 H APTT 20.5 L ABG pCO2 ABG pO2 ABG O2 Saturation Sodium Potassium Chloride Carbon Dioxide BUN Creatinine Glucose POC Glucose (mg/dL) Plasma Lactic Acid Kurt Calcium Magnesium AST ALT Troponin I 1.050 H* Albumin Triglycerides Carcinoembryonic Ag Urine Appearance Urine Protein Urine Ketones Urine Blood Urine Bilirubin Ur Leukocyte Esterase Urine WBC Urine WBC Clumps Ur Squamous Epith Cells Urine Bacteria Hyaline Casts Urine Mucus Stool Occult Blood 04/06/18 04/06/18 04/06/18 14:00 16:58 17:50 WBC RBC Hgb Hct Plt Count Neutrophils # Neutrophils # (Manual) Lymphocytes # Monocytes # (Manual) APTT ABG pCO2 ABG pO2 ABG O2 Saturation Sodium Potassium Chloride Carbon Dioxide BUN Creatinine Glucose POC Glucose (mg/dL) 117 H Plasma Lactic Acid Kurt 3.0 H* 2.7 H* Calcium Magnesium AST ALT Troponin I Albumin Triglycerides Carcinoembryonic Ag Urine Appearance Urine Protein Urine Ketones Urine Blood Urine Bilirubin Ur Leukocyte Esterase Urine WBC Urine WBC Clumps Ur Squamous Epith Cells Urine Bacteria Hyaline Casts Urine Mucus Stool Occult Blood 04/06/18 04/07/18 04/07/18 20:54 05:51 06:37 WBC 13.9 H RBC Hgb Hct Plt Count 122 L Neutrophils # 11.5 H Neutrophils # (Manual) Lymphocytes # Monocytes # (Manual) APTT ABG pCO2 ABG pO2 ABG O2 Saturation Sodium Potassium Chloride Carbon Dioxide BUN Creatinine Glucose POC Glucose (mg/dL) 126 H 126 H Plasma Lactic Acid Kurt Calcium Magnesium AST ALT Troponin I Albumin Triglycerides Carcinoembryonic Ag Urine Appearance Urine Protein Urine Ketones Urine Blood Urine Bilirubin Ur Leukocyte Esterase Urine WBC Urine WBC Clumps Ur Squamous Epith Cells Urine Bacteria Hyaline Casts Urine Mucus Stool Occult Blood 04/07/18 04/07/18 04/07/18 06:37 06:37 11:55 WBC RBC Hgb Hct Plt Count Neutrophils # Neutrophils # (Manual) Lymphocytes # Monocytes # (Manual) APTT ABG pCO2 ABG pO2 ABG O2 Saturation Sodium Potassium Chloride 108 H Carbon Dioxide 18 L BUN 32 H Creatinine Glucose 124 H POC Glucose (mg/dL) 103 H Plasma Lactic Acid Kurt Calcium Magnesium AST ALT Troponin I Albumin Triglycerides Carcinoembryonic Ag 5.4 H Urine Appearance Urine Protein Urine Ketones Urine Blood Urine Bilirubin Ur Leukocyte Esterase Urine WBC Urine WBC Clumps Ur Squamous Epith Cells Urine Bacteria Hyaline Casts Urine Mucus Stool Occult Blood 04/09/18 04/09/18 04/10/18 07:16 07:16 06:35 WBC RBC 3.42 L Hgb 10.7 L Hct 32.7 L Plt Count 116 L Neutrophils # Neutrophils # (Manual) Lymphocytes # 0.7 L Monocytes # (Manual) APTT ABG pCO2 ABG pO2 ABG O2 Saturation Sodium Potassium 3.1 L Chloride 108 H 112 H Carbon Dioxide BUN 18 H 19 H Creatinine Glucose POC Glucose (mg/dL) Plasma Lactic Acid Kurt Calcium 8.1 L 8.2 L Magnesium AST ALT Troponin I Albumin Triglycerides Carcinoembryonic Ag Urine Appearance Urine Protein Urine Ketones Urine Blood Urine Bilirubin Ur Leukocyte Esterase Urine WBC Urine WBC Clumps Ur Squamous Epith Cells Urine Bacteria Hyaline Casts Urine Mucus Stool Occult Blood 04/11/18 04/11/18 04/12/18 06:57 06:57 07:26 WBC RBC 3.67 L Hgb Hct Plt Count Neutrophils # Neutrophils # (Manual) Lymphocytes # 0.8 L Monocytes # (Manual) APTT ABG pCO2 ABG pO2 ABG O2 Saturation Sodium 146 H Potassium Chloride 113 H 115 H Carbon Dioxide 20 L BUN Creatinine Glucose POC Glucose (mg/dL) Plasma Lactic Acid Kurt Calcium 8.3 L 8.3 L Magnesium AST ALT Troponin I Albumin Triglycerides Carcinoembryonic Ag Urine Appearance Urine Protein Urine Ketones Urine Blood Urine Bilirubin Ur Leukocyte Esterase Urine WBC Urine WBC Clumps Ur Squamous Epith Cells Urine Bacteria Hyaline Casts Urine Mucus Stool Occult Blood 04/12/18 04/12/18 04/12/18 07:26 11:30 16:42 WBC RBC 3.60 L Hgb 10.8 L Hct 33.6 L Plt Count Neutrophils # Neutrophils # (Manual) Lymphocytes # Monocytes # (Manual) APTT ABG pCO2 34 L ABG pO2 54 L ABG O2 Saturation 89.6 L Sodium Potassium Chloride Carbon Dioxide BUN Creatinine Glucose POC Glucose (mg/dL) Plasma Lactic Acid Kurt Calcium Magnesium AST ALT Troponin I Albumin Triglycerides Carcinoembryonic Ag Urine Appearance Urine Protein 1+ H Urine Ketones Urine Blood Urine Bilirubin Ur Leukocyte Esterase Urine WBC Urine WBC Clumps Ur Squamous Epith Cells Urine Bacteria Hyaline Casts Urine Mucus Rare H Stool Occult Blood 04/13/18 15:48 WBC RBC Hgb Hct Plt Count Neutrophils # Neutrophils # (Manual) Lymphocytes # Monocytes # (Manual) APTT ABG pCO2 ABG pO2 ABG O2 Saturation Sodium Potassium Chloride Carbon Dioxide BUN Creatinine Glucose POC Glucose (mg/dL) Plasma Lactic Acid Kurt Calcium Magnesium 1.5 L AST ALT Troponin I Albumin 3.1 L Triglycerides 155 H Carcinoembryonic Ag Urine Appearance Urine Protein Urine Ketones Urine Blood Urine Bilirubin Ur Leukocyte Esterase Urine WBC Urine WBC Clumps Ur Squamous Epith Cells Urine Bacteria Hyaline Casts Urine Mucus Stool Occult Blood - Diagnostic Findings Chest x-ray: image reviewed Assessment and Plan Plan: Assessment 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 Findings were confirmed endoscopically and biopsy also confirmed the findings. Currently on IV Unasyn. General surgeries on the case. Ischemic proctitis could be related to underlying cardiomyopathy as the patient was confirmed to have severe ischemic cardiomyopathy. 2 bilateral pleural effusions along with increased pulmonary vessel congestion/ edema/anasarca diffuse. This is likely due to her advanced cardiomyopathy as the patient was diagnosed having ischemic artery myopathy with ejection fraction of 20-25% . Analyzing the patient's fluid balance revealed that the patient has been in significant amount of positive fluid balance over the past 3 -4 days and this can add to her fluid accumulation/overload condition. She was already started on IV Lasix. Doubt pneumonia at this stage 3 acute hypoxic respiratory failure secondary to above 4 CVA with expressive aphasia and right-sided hemiplegia 5 CHF/ischemic cardiomyopathy, refer to the echo results earlier 6 rheumatoid arthritis 7 seizure disorder 8 hypothyroidism 9 hypertension 11 hyperlipidemia 12 diabetes mellitus 13 gout 14 vitamin D deficiency 15 nephrolithiasis 16 peripheral neuropathy 17 coccygeal wounds also was in the upper thighs 18 very poor performance and functional status at baseline 19 chronic normocytic anemia Plan Continue Unasyn. Continued IV Lasix. Follow-up chest x-ray and anticipate improvement in the fluid balance with diuresis. Wean down the FiO2 gradually to maintain a saturation above 90%. Cardiology to comment on the underlying cardiomyopathy which is probably ischemic in nature underlying coronary artery disease cannot be completely ruled out. Long-term prognosis poor. We'll continue to follow.
[2018-04-13 19:32] LABS: Anion Gap 14 mmol/L; Blood Urea Nitrogen 12 mg/dL (7-17); Calcium 8.4 mg/dL (8.4-10.2); Carbon Dioxide 18 mmol/L (22-30); Chloride 113 mmol/L (98-107); Glucose 84 mg/dL (74-99); Potassium 3.7 mmol/L (3.5-5.1); Sodium 145 mmol/L (137-145)
[2018-04-13] MEDS ORDERED: MVI, ADULT NO.4 WITH VIT K 10 ML, TRACE (CONC-1ML/DOSE) 1 ML in AMIN 2.4%/DEX 6.8%/LIPI... IV SCH ×3 (20:00)
[2018-04-13] MEDS: ATORVASTATIN 40 MG TAB PO SCH (20:42)
[2018-04-13] MEDS: ALPRAZolam 0.25 MG TAB PO PRN (20:42)
--- NOTE | 2018-04-13 21:42 | P.PN ---
Subjective Progress Note Date: 04/13/18 She is resting comfortably. She denies any complaints. Additional studies including pelvic ultrasound obtained. No fevers or chills noted. Objective - Vital Signs Vital signs: Vital Signs Temp 97.8 F 04/13/18 20:30 Pulse 71 04/13/18 20:30 Resp 20 04/13/18 20:30 BP 149/70 04/13/18 20:30 Pulse Ox 95 04/13/18 20:30 Intake & Output 04/13/18 04/13/18 04/14/18 06:59 18:59 06:59 Intake Total 480 960 240 Output Total 2 502 Balance 478 458 240 Weight 82 kg Intake: Intake, IV Titration 100 Amount Ampicillin-Sulbactam 3 gm 100 In Sodium Chloride 0.9% 100 ml @ 100 mls/hr IVPB Q6HR [facility] Rx#:[id number] Oral 380 960 240 Output: Urine 500 Stool 1 2 Urine/Stool Mix 1 Other: Voiding Method Diaper Diaper Incontinent Incontinent # Voids 1 3 # Bowel Movements 1 2 - Exam ABDOMEN: Soft and without peritonitis. GENERAL: Well developed and in no acute distress. HEENT: No sclera icterus. Extraocular movements grossly intact. Moist buccal mucosa. Head is atraumatic, normocephalic. NECK: Supple without lymphadenopathy. CHEST: Mild labored respirations and equal bilateral excursions. CARDIOVASCULAR: Regular rate and rhythm. Palpable 2+ radial pulses. MUSCULOSKELETAL: No clubbing, cyanosis. NEUROLOGIC: Has lateralizing signs from previous stroke. PSYCH: Appropriate affect. Alert and oriented to person SKIN: Good skin turgor. Well perfused. - Labs CBC & Chem 7: 04/14/18 06:32 04/14/18 06:32 Labs: Abnormal Lab Results - Last 24 Hours (Table) 04/13/18 04/13/18 Range/Units 15:48 15:48 Chloride 113 H (98-107) mmol/L Carbon Dioxide 18 L (22-30) mmol/L Magnesium 1.5 L (1.6-2.3) mg/dL Albumin 3.1 L (3.5-5.0) g/dL Triglycerides 155 H (<150) mg/dL Assessment and Plan (1) Colitis Current Visit: Yes Status: Acute Code(s): K52.9 - NONINFECTIVE GASTROENTERITIS AND COLITIS, UNSPECIFIED SNOMED Code(s): 26160074 (2) Colitis, ischemic Current Visit: Yes Status: Acute Code(s): K55.9 - VASCULAR DISORDER OF INTESTINE, UNSPECIFIED SNOMED Code(s): 32716077 Plan: 1. Continue IV antibiotics. 2. No surgical intervention. 3. Diet may be adjusted to liquid diet.
[2018-04-13] MEDS: AMMONIUM LACTATE 12% LOTION 225 GM BTL TOPICAL SCH (22:42)
[2018-04-14] MEDS: AMPICILLIN-SULBACTAM 3 GM in SODIUM CHLORIDE 0.9% 100 ML IVPB SCH ×6 (06:22→23:49)
[2018-04-14] MEDS: IPRATROPIUM 0.5 MG/2.5 ML NEBU INHALATION SCH ×4 (07:34→18:51)
[2018-04-14 07:39] LABS: Basophils % (A) 0 %; Eosinophils # (A) 0.1 k/uL (0-0.7); Eosinophils % (A) 2 %; HCT 34.8 % (34.0-46.0); HGB 11.4 gm/dL (11.4-16.0); Lymphocytes % (A) 15 %; MCHC 32.6 g/dL (31.0-37.0); Mean Platelet Volume 7.9; Monocytes # (A) 0.4 k/uL (0-1.0); Monocytes % (A) 6 %; Neutrophils # (A) 4.8 k/uL (1.3-7.7); Neutrophils % (A) 75 %; Platelet Count 162 k/uL (150-450); RBC 3.67 m/uL (3.80-5.40); RDW 13.5 % (11.5-15.5); WBC 6.4 k/uL (3.8-10.6)
--- NOTE | 2018-04-14 08:11 | P.PN ---
Subjective this is a pleasant 73 years old female with past medical history of CVA/TIA with residual right hemiparesis and foot drop that needs assistance with mobility, and residual expressive aphasia,diabetes mellitus, GERD, hyperlipidemia, hypertension, renal disease, rheumatoid arthritis, seizure disorder, hypothyroidism she presents from alf for a fall, patient was noticed to have some blood in her stool and therefore she was sent to the hospital possible lower GI bleed 04/12/2018 Patient can't communicate with yes or no because of her expressive aphasia or simple words only for example this morning she was saying teeth and pointing to her mouth to get her dentures start eating. Abdominal exam looks soft 6 2017 Patient this morning looks clinically the same. She is a thin distress. Overnight her oxygen was on the low side. Repeat chest x-ray showed CHF and possible pneumonia. Patient already on Unasyn. She was started on IV Lasix and check echo. Also patient had CT abdomen and pelvis repeated yesterday which showing tiny up stenosis in the perirectal area, thickened endometrium and urinary bladder lesions on the posterior wall Objective - Vital Signs Vital signs: Vital Signs Temp 97.5 F L 04/14/18 06:01 Pulse 66 04/14/18 06:01 Resp 22 04/14/18 06:01 BP 134/63 04/14/18 06:01 Pulse Ox 96 04/14/18 07:33 Intake & Output 04/13/18 04/14/18 04/14/18 18:59 06:59 18:59 Intake Total 960 820 Output Total 502 2 Balance 458 818 Weight 82 kg Intake: Intake, IV Titration 100 Amount Ampicillin-Sulbactam 3 gm 100 In Sodium Chloride 0.9% 100 ml @ 100 mls/hr IVPB Q6HR [facility] Rx#:[id number] Oral 960 720 Output: Urine 500 Stool 2 2 Other: Voiding Method Diaper Diaper Incontinent Incontinent # Voids 3 1 # Bowel Movements 2 - Exam GENERAL: The patient is alert and oriented x3, not in any acute distress. Well developed, well nourished. HEENT: Pupils are round and equally reacting to light. EOMI. No scleral icterus. No conjunctival pallor. Normocephalic, atraumatic. No pharyngeal erythema. No thyromegaly. CARDIOVASCULAR: S1 and S2 present. No murmurs, rubs, or gallops. PULMONARY: Chest is clear to auscultation, no wheezing or crackles. ABDOMEN: Soft, nontender, nondistended, normoactive bowel sounds. No palpable organomegaly. MUSCULOSKELETAL: No joint swelling or deformity. EXTREMITIES: No cyanosis, clubbing, or pedal edema. NEUROLOGICAL: Gross neurological examination did not reveal any focal deficits. SKIN: No rashes. - Labs CBC & Chem 7: 04/14/18 06:32 04/13/18 15:48 Labs: Abnormal Lab Results - Last 24 Hours (Table) 04/13/18 04/13/18 04/14/18 Range/Units 15:48 15:48 06:32 RBC 3.67 L (3.80-5.40) m/uL Chloride 113 H (98-107) mmol/L Carbon Dioxide 18 L (22-30) mmol/L Magnesium 1.5 L (1.6-2.3) mg/dL Albumin 3.1 L (3.5-5.0) g/dL Triglycerides 155 H (<150) mg/dL Assessment and Plan Plan: -possible Rectal abscess, 7 x 2 centimeter and 3 cm perianal abscess on CAT scan of the abdomen and pelvis. patient had low-grade fever of 100.4. surgical consult is appreciated and surgical exploration was done and 04/10/2018 and no abscess with suspicion of proctitis and they recommended colonoscopy, continue with Unasyn with ID recommendation is appreciated. WBC 20.9 K down to 7.3 K -Possible GI bleed, surgical consult was called and endoscopy is not planned as inpatient for now. Hemoglobin and vitals are stable -possible fall, however when asked the patient she denies , she denies to me loss of consciousness, continue with conservative management -Possible CHF on chest x-ray, oxygen saturations at 93% on 2 L via nasal cannula. Patient is started on IV Lasix 60 mg daily.echo: EF 20-30%., Call cardiology consult -Thick endometrium computed tomography scan, patient denies vaginal bleeding or discharge. transvaginal US: Endometrium thickness is at the upper normal limits. Will call the GRAIN INSPECTOR consult -Urinary bladder lesions of 9 mm on the posterior wall and the recommended CT urogram (patient recently got contrast into the veins) -hyperlipidemia continue with Lipitor -Hypertension continue with lisinopril and nifedipine Patient refused blood work on 04/13/2018 DVT prophylaxis subcutaneous heparin GI prophylaxis on Protonix prognosis is guarded
[2018-04-14 08:41] LABS: Anion Gap 8 mmol/L; Blood Urea Nitrogen 12 mg/dL (7-17); Calcium 8.1 mg/dL (8.4-10.2); Carbon Dioxide 22 mmol/L (22-30); Chloride 112 mmol/L (98-107); Glucose 85 mg/dL (74-99); Magnesium 1.5 mg/dL (1.6-2.3); Phosphorus 3.1 mg/dL (2.5-4.5); Sodium 142 mmol/L (137-145)
[2018-04-14 08:48] LABS: Potassium 3.6 mmol/L (3.5-5.1)
[2018-04-14] MEDS: BISACODYL 10 MG SUPP RECTAL SCH (09:41)
[2018-04-14] MEDS: FLUTICASONE 50MCG/SPRAY NASAL 16GM EA NOSTRIL SCH (10:20)
[2018-04-14] MEDS: PHENYTOIN SODIUM EXTENDED 100 MG CAP PO SCH ×2 (10:21→17:18)
[2018-04-14] MEDS: PANTOPRAZOLE 40 MG TABLET PO SCH (10:21)
[2018-04-14] MEDS: LISINOPRIL 5 MG TAB PO SCH (10:21)
[2018-04-14] MEDS: HYDROcodone/APAP 10-325MG 1 EACH TAB PO PRN ×2 (10:22→20:40)
[2018-04-14] MEDS: MAGNESIUM OXIDE 400 MG TAB PO SCH (10:22)
[2018-04-14] MEDS: GABAPENTIN 300 MG CAP PO SCH ×2 (10:22→17:18)
[2018-04-14] MEDS: ALLOPURINOL 100 MG TAB PO SCH (10:22)
[2018-04-14] MEDS: LORATADINE 10 MG TAB PO SCH (10:22)
[2018-04-14] MEDS: LEVOTHYROXINE 100 MCG TAB PO SCH (10:23)
[2018-04-14] MEDS: HEPARIN SODIUM,PORCINE 5,000 UNIT/ML 1 ML VIAL SQ SCH ×2 (10:23→20:40)
[2018-04-14] MEDS: FUROSEMIDE 10 MG/ML 10 ML VIAL IV SCH (10:23)
[2018-04-14] MEDS: LIDOCAINE 5% PATCH TOPICAL SCH (10:24)
[2018-04-14] MEDS: NYSTATIN 100,000 UNIT/GM POWD 15 GM TOPICAL SCH ×2 (10:26→20:44)
--- NOTE | 2018-04-14 11:00 | P.PN ---
Subjective Progress Note Date: 04/14/18 71-year-old female patient is being seen in follow-up. The patient is not having any major respiratory distress. The patient is hard to communicate because of her expressive aphasia and right-sided hemiplegia. No abdominal pain or distention. Remains on IV Unasyn. Remains on IV Lasix once a day and the patient is producing adequate amount of urine output. No respiratory distress. No aspiration. No evidence of any GI bleeding. No signs of any respiratory distress and the patient is on oxygen at 2 L and his saturations around 96%. She has developed an ischemic cardiomyopathy and please refer to the echocardiogram as the patient has segmental wall motion abnormalities and severe impairment of the LV function. Objective - Vital Signs Vital signs: Vital Signs Temp 97.5 F L 04/14/18 06:01 Pulse 66 04/14/18 06:01 Resp 22 04/14/18 06:01 BP 134/63 04/14/18 06:01 Pulse Ox 96 04/14/18 07:33 Intake & Output 04/13/18 04/14/18 04/14/18 18:59 06:59 18:59 Intake Total 960 820 Output Total 502 2 Balance 458 818 Weight 82 kg Intake: Intake, IV Titration 100 Amount Ampicillin-Sulbactam 3 gm 100 In Sodium Chloride 0.9% 100 ml @ 100 mls/hr IVPB Q6HR [facility] Rx#:[id number] Oral 960 720 Output: Urine 500 Stool 2 2 Other: Voiding Method Diaper Diaper Incontinent Incontinent # Voids 3 1 # Bowel Movements 2 - Exam General appearance: The patient is alert, combative when moved or assessed screams loudly. Dysarthria. Unable to communicate effectively. HET: Head is normocephalic and atraumatic. Pupils are equal and reactive. Oropharynx is clear without lesions. Neck: Supple without lymphadenopathy. Trachea midline. Heart: S1 S2. Regular rate and rhythm. Lungs: Diminished breath sounds along with limited contact lung bases bilaterally. Abdomen: Soft, nontender, nondistended with bowel sounds. No peritoneal signs. No palpable organomegaly or masses. Extremities: Excoriated perirectal coccyx region with superficial wounds. Neurological: Right hemophoresis or emesis. Rectal: Edematous anal orifice with serosanguineous drainage. No obvious rectal prolapse. No mele blood. No melena. Patient was not compliant with exam combative; limited exam no palpable rectal masses possible internal hemorrhoids fissure appearance near 12 o'clock position. Diaper saturated with dark colored urine possible component of hematuria. - Labs CBC & Chem 7: 04/14/18 06:32 04/14/18 06:32 Labs: Abnormal Lab Results - Last 24 Hours (Table) 04/13/18 04/13/18 04/14/18 Range/Units 15:48 15:48 06:32 RBC (3.80-5.40) m/uL Chloride 113 H 112 H (98-107) mmol/L Carbon Dioxide 18 L (22-30) mmol/L Calcium 8.1 L (8.4-10.2) mg/dL Magnesium 1.5 L 1.5 L (1.6-2.3) mg/dL Albumin 3.1 L (3.5-5.0) g/dL Triglycerides 155 H (<150) mg/dL 04/14/18 Range/Units 06:32 RBC 3.67 L (3.80-5.40) m/uL Chloride (98-107) mmol/L Carbon Dioxide (22-30) mmol/L Calcium (8.4-10.2) mg/dL Magnesium (1.6-2.3) mg/dL Albumin (3.5-5.0) g/dL Triglycerides (<150) mg/dL Assessment and Plan Plan: Assessment 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 Findings were confirmed endoscopically and biopsy also confirmed the findings. Currently on IV Unasyn. General surgeries on the case. Ischemic proctitis could be related to underlying cardiomyopathy as the patient was confirmed to have severe ischemic cardiomyopathy. 2 bilateral pleural effusions along with increased pulmonary vessel congestion/ edema/anasarca diffuse. This is likely due to her advanced cardiomyopathy as the patient was diagnosed having ischemic artery myopathy with ejection fraction of 20-25% . Analyzing the patient's fluid balance revealed that the patient has been in significant amount of positive fluid balance over the past 3 -4 days and this can add to her fluid accumulation/overload condition. She was already started on IV Lasix. 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 The patient is being diuresed with Lasix 60 mg IV every 24 hours. The patient remains on IV Unasyn. No signs of any septicemia. Patient is being treated for proctitis. The patient is resting comfortably in bed. Repeat chest x-ray in the morning. Aspiration precautions. We'll continue to follow.
--- NOTE | 2018-04-14 11:54 | CDI ---
Last Revision, September 2017 Documentation Clarification Form Date: 04/14/2018 1150 From: Patricia Cast RN, CCDS Admit Date: 04/06/2018 3:08:00 PM Patient Name: Renee Carbone Visit Number: [id number] ATTENTION: The Clinical Documentation Specialists (CDI) and [facility] Coding Staff appreciate your assistance in clarifying documentation. Please respond to the clarification below the line at the bottom and electronically sign. The CDI & [facility] Coding staff will review the response and follow-up if needed. Please note: Queries are made part of the Legal Health Record. If you have any questions, please contact the author of this message via ITS. Dr. Zuluaga E Sheet History/Risk Factors: HTN, CVA, kidney disease, severe ischemic cardiomyopathy Clinical Indicators: 04/13 VS/Pulse OX: Temp 98.2, hr 66, RR 22, spo2 92% 3l NC BNP: not done 04/13 Echocardiogram Results: Ef 20-25% Overall left ventricular systolic function is severely impaired with, an EF between 20 - 25 %. T he findings are consistent with ischemic cardiomyopathy with only inferobasal wall moving well. Anterseptal Hypokinesis Inferiorlateral Hypokinesis Septal Hypokinesis [place] Hypokinesis. Chest X Ray:"Congestive heart failure with some right upper lobe infiltrate and atelectasis. Heart failure and infiltrate are new compared to last exam." Treatment: Lasix 40 mg IVP x 1 followed by 60 mg IVP QD 2L IVF Bolus Maxzide 25- 2 tabs PO Q AM NO Cardiology Consult In your professional opinion, can you please clarify the acuity and type of CHF if known? Systolic Heart Failure: Acute Chronic Acute on Chronic Systolic & Diastolic Heart Failure: Acute Chronic Acute on Chronic Heart Failure Unable to Determine Other, please specify Please continue to document in your progress notes and discharge summary in order to capture severity of illness and risk of mortality. Include clinical findings that support your diagnosis. acute on chronic systolic CHF MTDD
[2018-04-14] MEDS ORDERED: MVI, ADULT NO.4 WITH VIT K 10 ML, TRACE (CONC-1ML/DOSE) 1 ML in AMIN 2.4%/DEX 6.8%/LIPI... IV SCH ×3 (12:00)
--- NOTE | 2018-04-14 20:04 | P.PN ---
Subjective Progress Note Date: 04/14/18 Patient is watching TV. She has no complaints. She denies any lower abdominal pain or rectal pain. She has multiple medical issues at present. Objective - Vital Signs Vital signs: Vital Signs Temp 98.0 F 04/14/18 15:34 Pulse 60 04/14/18 16:00 Resp 18 04/14/18 16:00 BP 126/64 04/14/18 15:34 Pulse Ox 94 L 04/14/18 15:34 Intake & Output 04/14/18 04/14/18 04/15/18 06:59 18:59 06:59 Intake Total 820 2940 Output Total 2 512 Balance 818 2428 Intake: Intake, IV Titration 100 200 Amount Ampicillin-Sulbactam 3 gm 100 200 In Sodium Chloride 0.9% 100 ml @ 100 mls/hr IVPB Q6HR [facility] Rx#:[id number] Oral 720 2740 Output: Urine 500 Stool 2 12 Other: Voiding Method Diaper Diaper Incontinent Incontinent # Voids 1 4 - Exam ABDOMEN: Soft nontender. Nondistended. GENERAL: Well developed and in no acute distress. HEENT: No sclera icterus. Extraocular movements grossly intact. Moist buccal mucosa. Head is atraumatic, normocephalic. NECK: Supple without lymphadenopathy. CHEST: Mild labored respirations and equal bilateral excursions. Multiple crackles. CARDIOVASCULAR: Regular rate and rhythm. Palpable 2+ radial pulses. MUSCULOSKELETAL: No clubbing, cyanosis. NEUROLOGIC: Has lateralizing signs from previous stroke. PSYCH: Appropriate affect. Alert and oriented to person SKIN: Good skin turgor. Well perfused. - Labs CBC & Chem 7: 04/14/18 06:32 04/14/18 06:32 Labs: Abnormal Lab Results - Last 24 Hours (Table) 04/14/18 04/14/18 Range/Units 06:32 06:32 RBC 3.67 L (3.80-5.40) m/uL Chloride 112 H (98-107) mmol/L Calcium 8.1 L (8.4-10.2) mg/dL Magnesium 1.5 L (1.6-2.3) mg/dL Assessment and Plan (1) Colitis Current Visit: Yes Status: Acute Code(s): K52.9 - NONINFECTIVE GASTROENTERITIS AND COLITIS, UNSPECIFIED SNOMED Code(s): 95605551 (2) Colitis, ischemic Current Visit: Yes Status: Acute Code(s): K55.9 - VASCULAR DISORDER OF INTESTINE, UNSPECIFIED SNOMED Code(s): 87135951 Plan: 1. From a surgical standpoint, she denies any rectal pain. She also has no abdominal pain for more than 48 hours. 2. No surgical intervention needed 3. Will follow as needed.
[2018-04-14] MEDS: ATORVASTATIN 40 MG TAB PO SCH (20:40)
[2018-04-14] MEDS: ALPRAZolam 0.25 MG TAB PO PRN (20:40)
[2018-04-14] MEDS: AMMONIUM LACTATE 12% LOTION 225 GM BTL TOPICAL SCH (20:44)
--- NOTE | 2018-04-14 23:40 | PN ---
PROGRESS NOTE DATE OF SERVICE: 04/14/2018 REASON FOR FOLLOWUP: Perirectal abscess. INTERVAL HISTORY: The patient is currently afebrile. She remains a very poor historian though seems to be less agitated. No nausea or vomiting reported by nursing staff. PHYSICAL EXAMINATION: Blood pressure 143/65, pulse of 68, temperature 98.3. She is 96% on 3 L nasal cannula. General description is an elderly female lying in bed in no distress. RESPIRATORY SYSTEM: Unlabored breathing. Clear to auscultation anteriorly. HEART: S1, S2. Regular rate and rhythm. ABDOMEN: Soft. Mildly distended. No guarding or rigidity. LABS: Hemoglobin 11.4, white count 6.4 with a BUN of 12, creatinine 0.62. DIAGNOSTIC IMPRESSION AND PLAN: Patient with perirectal abscess and possible ischemic proctitis, currently covered with Unasyn. That will be continued while watching her clinical course closely. Continue with supportive care. MMODL / IJN: [id number] /
[2018-04-15] MEDS ORDERED: MAGNESIUM SULFATE-D5W PMX 1 GM in DEXTROSE/WATER 1 100ML.BAG IVPB ONE
[2018-04-15] MEDS: HYDROcodone/APAP 10-325MG 1 EACH TAB PO PRN ×2 (05:38→16:53)
[2018-04-15] MEDS: AMPICILLIN-SULBACTAM 3 GM in SODIUM CHLORIDE 0.9% 100 ML IVPB SCH ×4 (05:38→23:57)
[2018-04-15] MEDS: IPRATROPIUM 0.5 MG/2.5 ML NEBU INHALATION SCH ×5 (07:36→20:39)
[2018-04-15] MEDS: ALLOPURINOL 100 MG TAB PO SCH (07:42)
[2018-04-15] MEDS: LEVOTHYROXINE 100 MCG TAB PO SCH (07:42)
[2018-04-15] MEDS: LISINOPRIL 5 MG TAB PO SCH (07:42)
[2018-04-15] MEDS: GABAPENTIN 300 MG CAP PO SCH ×2 (07:42→16:55)
[2018-04-15] MEDS: MAGNESIUM OXIDE 400 MG TAB PO SCH (07:42)
[2018-04-15] MEDS: PHENYTOIN SODIUM EXTENDED 100 MG CAP PO SCH ×2 (07:42→16:55)
[2018-04-15] MEDS: HEPARIN SODIUM,PORCINE 5,000 UNIT/ML 1 ML VIAL SQ SCH ×2 (07:42→20:53)
[2018-04-15] MEDS: LORATADINE 10 MG TAB PO SCH (07:42)
[2018-04-15] MEDS: ALPRAZolam 0.25 MG TAB PO PRN (07:42)
[2018-04-15] MEDS: FUROSEMIDE 10 MG/ML 10 ML VIAL IV SCH (07:43)
[2018-04-15] MEDS: FLUTICASONE 50MCG/SPRAY NASAL 16GM EA NOSTRIL SCH (07:43)
[2018-04-15] MEDS: LIDOCAINE 5% PATCH TOPICAL SCH (07:43)
--- NOTE | 2018-04-15 10:06 | P.PN ---
Subjective this is a pleasant 73 years old female with past medical history of CVA/TIA with residual right hemiparesis and foot drop that needs assistance with mobility, and residual expressive aphasia,diabetes mellitus, GERD, hyperlipidemia, hypertension, renal disease, rheumatoid arthritis, seizure disorder, hypothyroidism she presents from snf for a fall, patient was noticed to have some blood in her stool and therefore she was sent to the hospital possible lower GI bleed 04/12/2018 Patient can't communicate with yes or no because of her expressive aphasia or simple words only for example this morning she was saying teeth and pointing to her mouth to get her dentures start eating. Abdominal exam looks soft 04/14/2018 Patient this morning looks clinically the same. She is a thin distress. Overnight her oxygen was on the low side. Repeat chest x-ray showed CHF and possible pneumonia. Patient already on Unasyn. She was started on IV Lasix and check echo. Also patient had CT abdomen and pelvis repeated yesterday which showing tiny up stenosis in the perirectal area, thickened endometrium and urinary bladder lesions on the posterior wall 04/15/2018 Patient is not in distress lying in bed comfortably. Patient afebrile more than 48 hours. She is maintaining 96% oxygen saturation on 3 L/m NC. Blood culture are negative so far 3 at echo shows low ejection fraction around 20%. Cardiology consult to see the patient. Patient is already on Lasix. Patient has an episode of pain in her right arm and left shoulder earlier This morning, however is resolved completely now, could be due to muscle spasm. Patient refuses the blood work this morning. Patient saturating well 96 and 20 L/m. We 'll DC oxygen via NC and monitor saturation. No more GI bleed. No pain. No chest pain no dyspnea. Patient states her breathing feels better today patient was informed about her problems of the heart, rectum, and urinary bladder [ further bladder lesions risks including but not limited to cancer is explained to the patient and she verbalized understanding and acceptance and willing to follow up with urologist as an outpatient] and patient verbalized understanding and acceptance to management plan Objective - Vital Signs Vital signs: Vital Signs Temp 98.2 F 04/15/18 06:26 Pulse 62 04/15/18 06:26 Resp 18 04/15/18 06:26 BP 130/68 04/15/18 06:26 Pulse Ox 96 04/15/18 06:26 Intake & Output 04/14/18 04/15/18 04/15/18 18:59 06:59 18:59 Intake Total 2940 680 Output Total 512 Balance 2428 680 Weight 82 kg Intake: Intake, IV Titration 200 80 Amount Ampicillin-Sulbactam 3 gm 200 In Sodium Chloride 0.9% 100 ml @ 100 mls/hr IVPB Q6HR [facility] Rx#:[id number] IV Fluid Continuation 900 80 ml As IV .[facility] Rx #:[id number] Oral 2740 600 Output: Urine 500 Stool 12 Other: Voiding Method Diaper Diaper Incontinent Incontinent # Voids 4 2 - Exam GENERAL: The patient is alert and oriented, not in any acute distress. Well developed, well nourished. HEENT: Pupils are round and equally reacting to light. EOMI. No scleral icterus. No conjunctival pallor. Normocephalic, atraumatic. No pharyngeal erythema. No thyromegaly. CARDIOVASCULAR: S1 and S2 present. No murmurs, rubs, or gallops. PULMONARY: Chest is clear to auscultation, no wheezing or crackles. ABDOMEN: Soft, nontender, nondistended, normoactive bowel sounds. No palpable organomegaly. MUSCULOSKELETAL: No joint swelling or deformity. EXTREMITIES: No cyanosis, clubbing, or pedal edema. -NEUROLOGICAL: Gross neurological examination did not reveal any focal deficits. Expressive aphasia [chronic] SKIN: No rashes. - Labs CBC & Chem 7: 04/14/18 06:32 04/14/18 06:32 Assessment and Plan Plan: -Acute on chronic ischemic cardiomyopathy, oxygen saturations at 96% on 2 L via nasal cannula. Patient is started on IV Lasix 60 mg daily.echo: EF 20-30%., Call cardiology consult -Ischemic proctocolitis,possible Rectal abscess, 7 x 2 centimeter and 3 cm perianal abscess on CAT scan of the abdomen and pelvis. patient had low-grade fever of 100.4. surgical consult is appreciated and surgical exploration was done and 04/10/2018 and no abscess with suspicion of proctitis and they recommended colonoscopy, continue with Unasyn with ID recommendation is appreciated. WBC 20.9 K down to 7.3 K -Possible GI bleed, surgical consult was called and endoscopy is not planned as inpatient for now. Hemoglobin and vitals are stable -possible fall, however when asked the patient she denies , she denies to me loss of consciousness, continue with conservative management -Thick endometrium computed tomography scan, patient denies vaginal bleeding or discharge. transvaginal US: Endometrium thickness is at the upper normal limits. As per staff NEMATOLOGIST instructional consultant saw the patient and they recommended no further workup but there is no notes in the chart.patient doesn't have vaginal bleeding -Urinary bladder lesions of 9 mm on the posterior wall and the recommended CT urogram (patient recently got contrast into the veins) -hyperlipidemia continue with Lipitor -Hypertension continue with lisinopril and nifedipine Patient refused blood work on 04/13/2018 DVT prophylaxis subcutaneous heparin GI prophylaxis on Protonix Physical therapy recommended REMY, patient to go to her snf on discharge prognosis is guarded Time with Patient: Greater than 30
[2018-04-15] MEDS: PANTOPRAZOLE 40 MG TABLET PO SCH (10:44)
[2018-04-15] MEDS: NYSTATIN 100,000 UNIT/GM POWD 15 GM TOPICAL SCH ×2 (10:45→20:54)
[2018-04-15] MEDS: BISACODYL 10 MG SUPP RECTAL SCH ×2 (10:45→16:34)
[2018-04-15 12:09] LABS: Basophils % (A) 0 %; Eosinophils # (A) 0.2 k/uL (0-0.7); Eosinophils % (A) 2 %; HCT 36.1 % (34.0-46.0); HGB 11.9 gm/dL (11.4-16.0); Lymphocytes # (A) 1.2 k/uL (1.0-4.8); Lymphocytes % (A) 12 %; MCH 30.9 pg (25.0-35.0); MCHC 32.8 g/dL (31.0-37.0); MCV 94.1 fL (80.0-100.0); Monocytes # (A) 0.6 k/uL (0-1.0); Monocytes % (A) 6 %; Neutrophils # (A) 7.6 k/uL (1.3-7.7); Neutrophils % (A) 78 %; Platelet Count 203 k/uL (150-450); RBC 3.84 m/uL (3.80-5.40); RDW 13.6 % (11.5-15.5); WBC 9.8 k/uL (3.8-10.6)
[2018-04-15 12:27] LABS: Anion Gap 9 mmol/L; Blood Urea Nitrogen 9 mg/dL (7-17); Calcium 8.2 mg/dL (8.4-10.2); Carbon Dioxide 26 mmol/L (22-30); Chloride 107 mmol/L (98-107); Glucose 94 mg/dL (74-99); Magnesium 1.5 mg/dL (1.6-2.3); Potassium 3.5 mmol/L (3.5-5.1); Sodium 142 mmol/L (137-145)
[2018-04-15] MEDS: SPIRONOLACTONE 25 MG TAB PO SCH (13:38)
[2018-04-15] MEDS: CARVEDILOL 3.125 MG TAB PO SCH ×2 (13:38→16:54)
[2018-04-15] MEDS: ASPIRIN 81 MG PO SCH (13:38)
--- NOTE | 2018-04-15 14:02 | PN ---
PROGRESS NOTE DATE OF SERVICE: 04/15/2018. REASON FOR FOLLOWUP: Possible ischemic proctitis with peritonitis. INTERVAL HISTORY: The patient is currently afebrile. She is breathing comfortably. No nausea, vomiting, diarrhea present. The patient is not a very good historian. EXAMINATION: Blood pressure is 130/68, pulse of 62, temperature 98.2. She is 96% on 3 L nasal cannula. General description is an elderly female lying in bed in no distress. RESPIRATORY SYSTEM: Unlabored breathing. Clear to auscultation. HEART: S1, S2. Regular rate and rhythm. ABDOMEN: Soft, no tenderness. LABS: Hemoglobin 11.2, white count 9.8. DIAGNOSTIC IMPRESSION AND PLAN: Patient with possible peritonitis with possible ischemic proctitis. Currently on Unasyn that will be continued and transitioned to oral Augmentin for another 7 to 10 days to finish course therapy with close outpatient followup. MMODL / IJN: [id number] /
--- NOTE | 2018-04-15 14:08 | P.CRDCN ---
History of Present Illness History of present illness: Mrs. Carbone is a pleasant 73-year-old female past medical history significant for prior CVA with residual aphasia, and right-sided hemiplegia diabetes mellitus, gastroesophageal reflux disease, dyslipidemia, hypertension, seizure disorder and rheumatoid arthritis. She is somewhat of a poor historian secondary to history of CVA. Objective information is obtained from the chart and from her son, Bernardo. She presented to the hospital for symptoms of rectal bleeding, weakness and dizziness. She was found to have ischemic proctatitis with rectal bleeding confirmed by scope and biopsy. She has been getting increasingly short of breath and a chest xray was obtained which revealed congestive heart failure with right upper lobe infiltrate and atelectasis. These were new findings compared to xray obtained on admission 04/06. An echocardiogram was ordered and revealed severely impaired LV systolic function with EF 20-25%, anteroseptal hypokinesia, inferolateral hypokinesia, septal hypokinesia and apical hypokinesia, severely dilated left atrium, mild aortic valve sclerosis with no stenosis identified. There is no old echocardiogram for comparison. According to the patient and her son she has never had a history of heart disease, she has never undergone cardiac catheterization and has no stents in her heart. Review of the EKG on admission reveals evidence of old anterolateral ID consistent with echocardiographic findings. Lengthy conversation with the son reveals that the patient is very firm on her wishes to be a no code. Does not want any invasive life-prolonging procedures. I have explained to him the option of cardiac catheterization, AICD placement and medical therapy. At this time he wishes to proceed with conservative medical therapy. He will discuss this at length with his mother and notify is of any further requests. The time of my exam the patient is seen resting comfortably in bed in no acute distress. She is breathing comfortably and alert. When questioned regarding any symptoms she denies all symptoms of chest pain, shortness of breath, dizziness, palpitations , PND or orthopnea. Current cardiac medications include triamterene HCTZ 37.5/25 2 tablets daily, potassium supplementation, nifedipine 120 mg daily, lisinopril 5 mg daily, atorvastatin 40 mg daily and aspirin 81 mg daily. She is currently receiving Lasix 60 mg IV daily as well as magnesium supplementation. Laboratory data reviewed, hemoglobin 11.9, platelets 203, sodium 142, potassium 3.5, creatinine 0.57 and magnesium 1.5. Blood pressure 130/68 heart rate 62 afebrile maintaining oxygen saturation on nasal cannula. Review of Systems ROS unobtainable: due to mental status Past Medical History Past Medical History: CVA/TIA, Diabetes Mellitus, GERD/Reflux, Hyperlipidemia, Hypertension, Renal Disease, Rheumatoid Arthritis (RA), Seizure Disorder, Thyroid Disorder Additional Past Medical History / Comment(s): CVA with expressive aphasia and right-sided hemiplegia as the patient is unable to move his right upper and right lower extremity and she is incontinent to urine and stool and she requires assistance for mobility. Diabetes mellitus, hypertension, hyperlipidemia, acid reflux, rheumatoid arthritis, seizure disorder, hypothyroidism and most recently found to be having an ischemic cardiomyopathy with an ejection fraction of 20-25%. She also has chronic back pain, vitamin D deficiency, gout, ALLERGIC rhinitis, previous wounds in the Buttock and upper thighs, frequent falls, and debility in general History of Any Multi-Drug Resistant Organisms: None Reported Past Surgical History: Orthopedic Surgery, Tonsillectomy Additional Past Surgical History / Comment(s): right hip replacement, d&c, colonoscopy Past Anesthesia/Blood Transfusion Reactions: No Reported Reaction Smoking Status: Never smoker - Past Family History Mother Family Medical History: Pneumonia, Rheumatoid Arthritis (RA) Additional Family Medical History / Comment(s): from complications of pne at age 56 Father Family Medical History: Congestive Heart Failure (CHF), Diabetes Mellitus Additional Family Medical History / Comment(s): at age 63 Medications and Allergies Home Medications Medication Instructions Recorded Confirmed Type Gabapentin [Neurontin] 300 mg PO BID@0900,1700 06/01/14 04/06/18 History NIFEdipine [NIFEdipine ER] 120 mg PO DAILY@0900 06/01/14 04/06/18 History Phenytoin Sodium Extended 100 mg PO BID@0900,1700 06/22/14 04/06/18 History [Dilantin] Acetaminophen Tab [Tylenol Tab] 650 mg PO Q8H PRN 01/26/18 04/06/18 History Allopurinol [Zyloprim] 100 mg PO DAILY@0900 01/26/18 04/06/18 History Ammonium Lactate Lotion 1 applic TOPICAL HS 01/26/18 04/06/18 History [Lac-Hydrin 12% Lotion] Aspirin 81 mg PO DAILY@0901/26/18 04/06/18 History Atorvastatin Calcium [Lipitor] 40 mg PO HS@2100 01/26/18 04/06/18 History Cholecalciferol (Vitamin D3) 2,000 unit PO DAILY@0901/26/18 04/06/18 History [Vitamin D3] Fluticasone Propionate [Flonase 1 spray EA NOSTRIL DAILY@0900 01/26/18 04/06/18 History Allergy Relief] Ipratropium [place] 0.06%Nasal 2 spray EA NOSTRIL Q24H PRN 01/26/18 04/06/18 History [Atrovent Nasal 0.06%] Levothyroxine Sodium [Synthroid] 100 mcg PO DAILY@0901/26/18 04/06/18 History Lidocaine 5% Patch [Lidoderm] 1 patch TOPICAL DAILY@89901/26/18 04/06/18 History Lisinopril [Prinivil] 5 mg PO DAILY@89901/26/18 04/06/18 History Loperamide HCl [Imodium A-D] 2 mg PO Q24H PRN 01/26/18 04/06/18 History Loratadine [Claritin] 10 mg PO DAILY@0901/26/18 04/06/18 History Methyl Salicylate/Menthol 1 patch TOPICAL QAM@89901/26/18 04/06/18 History [Salonpas Patch] Miconazole Nitrate [Lotrimin AF 1 applic TOPICAL BID 01/26/18 04/06/18 History Powder] [place]-3 Fatty Acids [[place]-3] 1,000 mg PO BID@0900,2100 01/26/18 04/06/18 History Omeprazole [PriLOSEC] 20 mg PO DAILY@89901/26/18 04/06/18 History Potassium Chloride [Klor-Con 10] 10 meq PO DAILY@0901/26/18 04/06/18 History Sodium Chloride [[place]] 1 spray EA NOSTRIL TID PRN 01/26/18 04/06/18 History Triad Hydrophilic Wound Dress 1 applic TOPICAL Q12H 01/26/18 04/06/18 History Triamterene/Hydrochlorothiazid 2 tab PO QAM@0900 01/26/18 04/06/18 History [Triamterene-Hctz 37.5-25 mg Tb] HYDROcodone/APAP 10-325MG [[place] 1 tab PO Q8H PRN 04/06/18 04/06/18 History 10-325] Allergies Allergy/AdvReac Type Severity Reaction Status Date / Time codeine Allergy Unknown Verified 04/06/18 13:40 Sulfa (Sulfonamide Allergy Unknown Verified 04/06/18 13:40 Antibiotics) Physical Exam Vitals: Vital Signs Temp Pulse Pulse Resp BP Pulse Ox 04/15/18 06:26 98.2 F 62 18 130/68 96 04/14/18 23:07 17 04/14/18 22:07 98.3 F 68 17 143/65 96 04/14/18 16:00 66 60 18 04/14/18 15:34 98.0 F 60 18 126/64 94 L Intake and Output 04/14/18 04/15/18 04/15/18 22:59 06:59 14:59 Intake Total 1400 Output Total 508 Balance 892 Intake: Intake, IV Titration 80 Amount IV Fluid Continuation 900 80 ml As IV .Sterecycle ONE Rx #:[id number] Oral 1320 Output: Urine 500 Stool 8 Other: Voiding Method Diaper Diaper Incontinent Incontinent # Voids 1 2 Weight 82 kg GENERAL: This is a 73-year-old female in no apparent distress at the time of my examination. HEENT: Head is atraumatic, normocephalic. Pupils are equal, round. Sclerae anicteric. Conjunctivae are clear. Mucous membranes of the mouth are moist. Neck is supple. There is no jugular venous distention. No carotid bruit is heard. LUNGS: Bibasilar rales. No wheezes or rhonchi. No chest wall tenderness is noted on palpation or with deep breathing. HEART: Regular rate and rhythm with no murmur, rubs or gallops. S1 and S2 heard. ABDOMEN: Soft, nontender. Bowel sounds are heard. No organomegaly noted. EXTREMITIES: No evidence of peripheral edema and no calf tenderness noted. VASCULAR: Radial and dorsalis pedis pulses palpated, no evidence of clubbing. NEUROLOGIC: Patient is awake, alert and oriented with expressive aphasia. Results 04/16/18 06:49 04/16/18 06:49 CBC 04/15/18 Range/Units 11:45 WBC 9.8 (3.8-10.6) k/uL RBC 3.84 (3.80-5.40) m/uL Hgb 11.9 (11.4-16.0) gm/dL Hct 36.1 (34.0-46.0) % Plt Count 203 (150-450) k/uL Comprehensive Metabolic Panel 04/15/18 Range/Units 11:45 Sodium 142 (137-145) mmol/L Potassium 3.5 (3.5-5.1) mmol/L Chloride 107 (98-107) mmol/L Carbon Dioxide 26 (22-30) mmol/L BUN 9 (7-17) mg/dL Creatinine 0.57 (0.52-1.04) mg/dL Glucose 94 (74-99) mg/dL Calcium 8.2 L (8.4-10.2) mg/dL Current Medications Generic Name Dose Route Start Last Admin Trade Name Freq PRN Reason Stop Dose Admin Hydrocodone Bitart/Acetaminophen 1 each 04/12/18 16:39 04/15/18 05:38 [place] 10 PO 1 each Q6H PRN Administration Pain Allopurinol 100 mg 04/07/18 09:00 04/15/18 07:42 Zyloprim PO 100 mg DAILY@0900 FARHANA Administration Alprazolam 0.25 mg 04/12/18 09:06 04/15/18 07:42 Xanax PO 0.25 mg BID PRN Administration Anxiety Aspirin 81 mg 04/15/18 10:15 04/15/18 13:38 Aspirin PO 81 mg DAILY FARHANA Administration Atorvastatin Calcium 40 mg 04/06/18 21:00 04/14/18 20:40 Lipitor PO 40 mg HS@2100 FARHANA Administration Bisacodyl 10 mg 04/12/18 15:15 04/15/18 10:45 Dulcolax RECTAL Not Given DAILY FARHANA Carvedilol 3.125 mg 04/15/18 10:30 04/15/18 13:38 Coreg PO 3.125 mg BID-W/MEALS FARHANA Administration Fluticasone Propionate 1 spray 04/07/18 09:00 04/15/18 07:43 Flonase Nasal [place] EA NOSTRIL 1 spray DAILY@0900 FARHANA Administration Furosemide 60 mg 04/13/18 09:00 04/15/18 07:43 Lasix IV 60 mg DAILY FARHANA Administration Gabapentin 300 mg 04/06/18 17:00 04/15/18 07:42 Neurontin PO 300 mg BID@0900,1700 FARHANA Administration Heparin Sodium (Porcine) 5,000 unit 04/11/18 21:00 04/15/18 07:42 Heparin SQ 5,000 unit Q12HR FARHANA Administration Ampicillin Sodium/Sulbactam 100 mls @ 100 mls/hr 04/08/18 18:30 04/15/18 13: 38 Sodium 3 gm/ Sodium Chloride IVPB 100 mls/hr Q6HR FARHANA Administration Ipratropium [place] 2 spray 04/06/18 15:09 Atrovent Nasal EA NOSTRIL Q24H PRN Wheezing Ipratropium [place] 0.5 mg 04/12/18 20:00 04/15/18 12:38 Atrovent Nebulized INHALATION Not Given RT-QID [facility] Lactic Acid 1 applic 04/06/18 21:00 04/14/18 20:44 Lac-Hydrin 12% TOPICAL 1 applic HS FARHANA Administration Levothyroxine Sodium 100 mcg 04/07/18 09:00 04/15/18 07:42 Synthroid PO 100 mcg DAILY@0900 [facility] Administration Lidocaine 1 patch 04/07/18 09:00 04/15/18 07:43 Lidoderm TOPICAL 1 patch DAILY@0900 FARHANA Administration Lisinopril 10 mg 04/16/18 09:00 Zestril PO DAILY FARHANA Loratadine 10 mg 04/07/18 09:00 04/15/18 07:42 Claritin PO 10 mg DAILY@0900 FARHANA Administration Magnesium Oxide 400 mg 04/14/18 09:00 04/15/18 07:42 Mag-Ox PO 04/17/18 09:01 400 mg DAILY [facility] Administration Naloxone HCl 0.2 mg 04/06/18 15:08 Narcan IV Q2M PRN Opioid Reversal Nystatin 1 applic 04/06/18 21:00 04/15/18 10:45 Mycostatin Powder TOPICAL 1 applic BID FARHANA Administration Pantoprazole Sodium 40 mg 04/13/18 07:30 04/15/18 10:44 Protonix PO 40 mg [id number] FARHANA Administration Phenytoin Sodium 100 mg 04/10/18 21:00 04/15/18 07:42 Dilantin PO 100 mg BID@0900,1700 [facility] Administration Spironolactone 25 mg 04/15/18 10:15 04/15/18 13:38 Aldactone PO 25 mg DAILY FARHANA Administration Intake and Output 04/14/18 04/15/18 04/15/18 22:59 06:59 14:59 Intake Total 1400 Output Total 508 Balance 892 Intake: Intake, IV Titration 80 Amount IV Fluid Continuation 900 80 ml As IV .STK-MED ONE Rx #:[id number] Oral 1320 Output: Urine 500 Stool 8 Other: Voiding Method Diaper Diaper Incontinent Incontinent # Voids 1 2 Weight 82 kg 04/15/18 11:45 04/15/18 11:45 Assessment and Plan Assessment: ASSESSMENT 1. Acute systolic heart failure, ejection fraction 20-25%. 2. Ischemic prostatitis with secondary rectal bleeding 3. Probable ischemic cardiomyopathy 4. Hypertension 5. Dyslipidemia 6. Diabetes mellitus 7. History of CVA with expressive aphasia and right sided hemiplegia 8. Hypomagnesemia PLAN Lengthy discussion was had with the son regarding patient's wishes since she is unable to verbalize clearly. He is very adamant that she wishes to BE no code and have no aggressive life-saving measures. At this time we will recommend conservative medical management. Discontinue Procardia. Increase lisinopril to 10 mg daily. Add Coreg 3.125 mg twice a day, Aldactone 25 mg daily, aspirin 81 mg daily and discontinue potassium supplementation. Placed the patient on telemetry monitoring per protocol. Daily weights with intake and output documented. Agree with IV Lasix diuresis. Follow kidney function and electrolytes daily. Further recommendations to follow based upon clinical course. Thank you kindly for this consultation. Nurse Practitioner note has been reviewed, I agree with a documented findings and plan of care. Patient was seen and examined.
[2018-04-15] MEDS: ATORVASTATIN 40 MG TAB PO SCH (20:53)
[2018-04-15] MEDS: AMMONIUM LACTATE 12% LOTION 225 GM BTL TOPICAL SCH (20:54)
[2018-04-16] MEDS: AMPICILLIN-SULBACTAM 3 GM in SODIUM CHLORIDE 0.9% 100 ML IVPB SCH ×3 (05:10→17:37)
[2018-04-16] MEDS: HYDROcodone/APAP 10-325MG 1 EACH TAB PO PRN ×3 (05:13→18:06)
[2018-04-16 07:26] LABS: Basophils % (A) 0 %; Eosinophils # (A) 0.1 k/uL (0-0.7); Eosinophils % (A) 2 %; HCT 34.8 % (34.0-46.0); HGB 11.2 gm/dL (11.4-16.0); Lymphocytes # (A) 0.9 k/uL (1.0-4.8); Lymphocytes % (A) 12 %; MCH 30.4 pg (25.0-35.0); MCHC 32.2 g/dL (31.0-37.0); MCV 94.6 fL (80.0-100.0); Mean Platelet Volume 7.2; Monocytes # (A) 0.4 k/uL (0-1.0); Monocytes % (A) 6 %; Neutrophils # (A) 5.9 k/uL (1.3-7.7); Neutrophils % (A) 78 %; Platelet Count 233 k/uL (150-450); RBC 3.68 m/uL (3.80-5.40); RDW 13.2 % (11.5-15.5); WBC 7.5 k/uL (3.8-10.6)
[2018-04-16 07:39] LABS: Anion Gap 9 mmol/L; Blood Urea Nitrogen 7 mg/dL (7-17); Carbon Dioxide 26 mmol/L (22-30); Chloride 108 mmol/L (98-107); Glucose 89 mg/dL (74-99); Magnesium 1.4 mg/dL (1.6-2.3); Phosphorus 3.1 mg/dL (2.5-4.5); Potassium 3.3 mmol/L (3.5-5.1); Sodium 143 mmol/L (137-145)
[2018-04-16] MEDS: FLUTICASONE 50MCG/SPRAY NASAL 16GM EA NOSTRIL SCH (08:36)
[2018-04-16] MEDS: CARVEDILOL 3.125 MG TAB PO SCH ×2 (08:36→17:36)
[2018-04-16] MEDS: PANTOPRAZOLE 40 MG TABLET PO SCH (08:36)
[2018-04-16] MEDS: ASPIRIN 81 MG PO SCH (08:36)
[2018-04-16] MEDS: ALLOPURINOL 100 MG TAB PO SCH (08:36)
[2018-04-16] MEDS: LORATADINE 10 MG TAB PO SCH (08:36)
[2018-04-16] MEDS: MAGNESIUM OXIDE 400 MG TAB PO SCH (08:36)
[2018-04-16] MEDS: LEVOTHYROXINE 100 MCG TAB PO SCH (08:36)
[2018-04-16] MEDS: GABAPENTIN 300 MG CAP PO SCH ×2 (08:36→17:37)
[2018-04-16] MEDS: SPIRONOLACTONE 25 MG TAB PO SCH (08:37)
[2018-04-16] MEDS: LIDOCAINE 5% PATCH TOPICAL SCH (08:37)
[2018-04-16] MEDS: FUROSEMIDE 10 MG/ML 10 ML VIAL IV SCH (08:37)
[2018-04-16] MEDS: NYSTATIN 100,000 UNIT/GM POWD 15 GM TOPICAL SCH ×2 (08:37→19:23)
[2018-04-16] MEDS: PHENYTOIN SODIUM EXTENDED 100 MG CAP PO SCH ×2 (08:37→17:37)
[2018-04-16] MEDS: HEPARIN SODIUM,PORCINE 5,000 UNIT/ML 1 ML VIAL SQ SCH ×2 (08:37→19:22)
[2018-04-16] MEDS: LISINOPRIL 10 MG TAB PO SCH (08:37)
[2018-04-16] MEDS: BISACODYL 10 MG SUPP RECTAL SCH (08:43)
[2018-04-16] MEDS: IPRATROPIUM 0.5 MG/2.5 ML NEBU INHALATION SCH ×4 (09:00→19:46)
--- NOTE | 2018-04-16 11:18 | P.PN ---
Subjective Mrs. Carbone is a pleasant 73-year-old female past medical history significant for prior CVA with residual aphasia, and right-sided hemiplegia diabetes mellitus, gastroesophageal reflux disease, dyslipidemia, hypertension, seizure disorder and rheumatoid arthritis. She is somewhat of a poor historian secondary to history of CVA. Objective information is obtained from the chart and from her son, Bernardo. She presented to the hospital for symptoms of rectal bleeding, weakness and dizziness. She was found to have ischemic proctatitis with rectal bleeding confirmed by scope and biopsy. She has been getting increasingly short of breath and a chest xray was obtained which revealed congestive heart failure with right upper lobe infiltrate and atelectasis. These were new findings compared to xray obtained on admission 04/06. An echocardiogram was ordered and revealed severely impaired LV systolic function with EF 20-25%, anteroseptal hypokinesia, inferolateral hypokinesia, septal hypokinesia and apical hypokinesia, severely dilated left atrium, mild aortic valve sclerosis with no stenosis identified. There is no old echocardiogram for comparison. According to the patient and her son she has never had a history of heart disease, she has never undergone cardiac catheterization and has no stents in her heart. Review of the EKG on admission reveals evidence of old anterolateral MD consistent with echocardiographic findings. Lengthy conversation with the son reveals that the patient is very firm on her wishes to be a no code. Does not want any invasive life-prolonging procedures. I have explained to him the option of cardiac catheterization, AICD placement and medical therapy. At this time he wishes to proceed with conservative medical therapy. He will discuss this at length with his mother and notify is of any further requests. The time of my exam the patient is seen resting comfortably in bed in no acute distress. She is breathing comfortably and alert. When questioned regarding any symptoms she denies all symptoms of chest pain, shortness of breath, dizziness, palpitations , PND or orthopnea. Current cardiac medications include triamterene HCTZ 37.5/25 2 tablets daily, potassium supplementation, nifedipine 120 mg daily, lisinopril 5 mg daily, atorvastatin 40 mg daily and aspirin 81 mg daily. She is currently receiving Lasix 60 mg IV daily as well as magnesium supplementation. Laboratory data reviewed, hemoglobin 11.9, platelets 203, sodium 142, potassium 3.5, creatinine 0.57 and magnesium 1.5. Blood pressure 130/68 heart rate 62 afebrile maintaining oxygen saturation on nasal cannula. 04/16/2018 Mrs. Carbone seen and examined resting comfortably in bed. Medications were added yesterday for finding of systolic heart failure. Blood pressure tolerating well today 144/66 heart rate 72 afebrile maintaining oxygen saturation on room air. As discussed with his son yesterday we will forego invasive testing and treat her medically. Hemoglobin 11.2, platelets 233, sodium 143, potassium 3.3, creatinine 0.6, magnesium 1.4. Objective - Vital Signs Vital signs: Vital Signs Temp 98.4 F 04/16/18 05:41 Pulse 72 04/16/18 05:41 Resp 17 04/16/18 05:41 BP 144/66 04/16/18 05:41 Pulse Ox 92 L 04/16/18 05:41 Intake & Output 04/15/18 04/16/18 04/16/18 18:59 06:59 18:59 Intake Total 1200 240 Output Total 512 Balance 688 240 Weight 82 kg 82.1 kg Intake: Oral 1200 240 Output: Urine 500 Stool 12 Other: Voiding Method Diaper Diaper Diaper Incontinent Incontinent Incontinent # Voids 2 3 - Exam GENERAL: Well-appearing, well-nourished and in no acute distress. Right-sided hemiplegia noted. NECK: Supple without JVD or thyromegaly. LUNGS: Coarse rhonchi noted throughout. No wheezes or rales. Respiration equal and unlabored. HEART: Regular rate and rhythm without murmurs, rubs or gallops. S1 and S2 heard. EXTREMITIES: No edema. No clubbing or cyanosis. Peripheral pulses intact. - Labs CBC & Chem 7: 04/16/18 06:49 04/16/18 06:49 Labs: Abnormal Lab Results - Last 24 Hours (Table) 04/15/18 04/16/18 04/16/18 Range/Units 11:45 06:49 06:49 RBC 3.68 L (3.80-5.40) m/uL Hgb 11.2 L (11.4-16.0) gm/dL Lymphocytes # 0.9 L (1.0-4.8) k/uL Potassium 3.3 L (3.5-5.1) mmol/L Chloride 108 H (98-107) mmol/L Calcium 8.2 L 8.0 L (8.4-10.2) mg/dL Magnesium 1.5 L 1.4 L (1.6-2.3) mg/dL Assessment and Plan Assessment: ASSESSMENT 1. Acute systolic heart failure, ejection fraction 20-25%. 2. Ischemic prostatitis with secondary rectal bleeding 3. Probable ischemic cardiomyopathy 4. Hypertension 5. Dyslipidemia 6. Diabetes mellitus 7. History of CVA with expressive aphasia and right sided hemiplegia 8. Hypomagnesemia PLAN Continue with ongoing medical management. No aggressive invasive procedures per the son. We will continue to follow as needed. Nurse Practitioner note has been reviewed, I agree with a documented findings and plan of care. Patient was seen and examined.
--- NOTE | 2018-04-16 13:41 | P.PN ---
Subjective this is a pleasant 73 years old female with past medical history of CVA/TIA with residual right hemiparesis and foot drop that needs assistance with mobility, and residual expressive aphasia,diabetes mellitus, GERD, hyperlipidemia, hypertension, renal disease, rheumatoid arthritis, seizure disorder, hypothyroidism she presents from [facility] for a [facility], patient was noticed to have some blood in her stool and therefore she was sent to the hospital possible lower GI bleed 04/12/2018 Patient can't communicate with yes or no because of her expressive aphasia or simple words only for example this morning she was saying teeth and pointing to her mouth to get her dentures start eating. Abdominal exam looks soft 04/14/2018 Patient this morning looks clinically the same. She is a thin distress. Overnight her oxygen was on the low side. Repeat chest x-ray showed CHF and possible pneumonia. Patient already on Unasyn. She was started on IV Lasix and check echo. Also patient had CT abdomen and pelvis repeated yesterday which showing tiny up stenosis in the perirectal area, thickened endometrium and urinary bladder lesions on the posterior wall 04/15/2018 Patient is not in distress lying in bed comfortably. Patient afebrile more than 48 hours. She is maintaining 96% oxygen saturation on 3 L/m NC. Blood culture are negative so far 3 at echo shows low ejection fraction around 20%. Cardiology consult to see the patient. Patient is already on Lasix. no more arm or shoulder pain. Patient saturating well 96 and 20 L/m. saturating at 92 on 2 L of the nasal cannula patient may need to be discharged on oxygen. No more GI bleed. No pain. No chest pain no dyspnea. 04/16/2018 Patient is not in distress lying in bed comfortably. Patient afebrile more than 48 hours. She is maintaining 96% oxygen saturation on 3 L/m NC. Blood culture are negative so far 3 at echo shows low ejection fraction around 20%. Cardiology consult to see the patient. Patient is already on Lasix. no more arm or shoulder pain. Patient saturating well 96 and 20 L/m. saturating at 92 on 2 L of the nasal cannula patient may need to be discharged on oxygen. No more GI bleed. No pain. No chest pain no dyspnea Objective - Vital Signs Vital signs: Vital Signs Temp 98.4 F 04/16/18 05:41 Pulse 72 06/23/18 05:41 Resp 17 04/16/18 05:41 BP 144/66 04/16/18 05:41 Pulse Ox 92 L 04/16/18 05:41 Intake & Output 04/15/18 04/16/18 04/16/18 18:59 06:59 18:59 Intake Total 1200 240 Output Total 512 Balance 688 240 Weight 82 kg 82.1 kg Intake: Oral 1200 240 Output: Urine 500 Stool 12 Other: Voiding Method Diaper Diaper Diaper Incontinent Incontinent Incontinent # Voids 2 3 - Exam GENERAL: The patient is alert and oriented, not in any acute distress. Well developed, well nourished. HEENT: Pupils are round and equally reacting to light. EOMI. No scleral icterus. No conjunctival pallor. Normocephalic, atraumatic. No pharyngeal erythema. No thyromegaly. CARDIOVASCULAR: S1 and S2 present. No murmurs, rubs, or gallops. PULMONARY: Chest is clear to auscultation, no wheezing or crackles. ABDOMEN: Soft, nontender, nondistended, normoactive bowel sounds. No palpable organomegaly. MUSCULOSKELETAL: No joint swelling or deformity. EXTREMITIES: No cyanosis, clubbing, or pedal edema. -NEUROLOGICAL: Gross neurological examination did not reveal any focal deficits. Expressive aphasia [chronic] SKIN: No rashes. - Labs CBC & Chem 7: 04/16/18 06:49 04/16/18 06:49 Labs: Abnormal Lab Results - Last 24 Hours (Table) 04/16/18 04/16/18 Range/Units 06:49 06:49 RBC 3.68 L (3.80-5.40) m/uL Hgb 11.2 L (11.4-16.0) gm/dL Lymphocytes # 0.9 L (1.0-4.8) k/uL Potassium 3.3 L (3.5-5.1) mmol/L Chloride 108 H (98-107) mmol/L Calcium 8.0 L (8.4-10.2) mg/dL Magnesium 1.4 L (1.6-2.3) mg/dL Assessment and Plan Plan: -Acute on chronic ischemic cardiomyopathy, oxygen saturations at 96% on 2 L via nasal cannula. Patient is started on IV Lasix 60 mg daily.echo: EF 20-30%., Call cardiology consult -Ischemic proctocolitis,possible Rectal abscess, 7 x 2 centimeter and 3 cm perianal abscess on CAT scan of the abdomen and pelvis. patient had low-grade fever of 100.4. surgical consult is appreciated and surgical exploration was done and 04/10/2018 and no abscess with suspicion of proctitis and they recommended colonoscopy, continue with Unasyn with ID recommendation is appreciated. WBC 20.9 K down to 7.3 K -Possible GI bleed, surgical consult was called and endoscopy is not planned as inpatient for now. Hemoglobin and vitals are stable -possible fall, however when asked the patient she denies , she denies to me loss of consciousness, continue with conservative management -Thick endometrium computed tomography scan, patient denies vaginal bleeding or discharge. transvaginal US: Endometrium thickness is at the upper normal limits. As per staff DIRECTOR [employer] computer systems consultant saw the patient and they recommended no further workup but there is no notes in the chart.patient doesn't have vaginal bleeding -Urinary bladder lesions of 9 mm on the posterior wall and the recommended CT urogram (patient recently got contrast into the veins) -hyperlipidemia continue with Lipitor -Hypertension continue with lisinopril and nifedipine Patient refused blood work on 04/13/2018 DVT prophylaxis subcutaneous heparin GI prophylaxis on Protonix Physical therapy recommended REM[facility], patient to go to her prison on discharge prognosis is guarded
[2018-04-16] MEDS: ATORVASTATIN 40 MG TAB PO SCH (19:22)
[2018-04-16] MEDS: AMMONIUM LACTATE 12% LOTION 225 GM BTL TOPICAL SCH (19:22)
[2018-04-16] MEDS: MAGNESIUM SULFATE-D5W PMX 1 GM in DEXTROSE/WATER 1 100ML.BAG IVPB SCH ×2 (22:49→23:37)
--- NOTE | 2018-04-16 22:54 | PN ---
PROGRESS NOTE DATE OF SERVICE: 04/16/2018. REASON FOR FOLLOWUP: Ischemia proctitis with perirectal abscess. INTERVAL HISTORY: The patient is afebrile. She has been breathing comfortably. Denies any chest pain or cough. No abdominal pain has been noticed. No vomiting or vomiting or diarrhea. EXAMINATION: Blood pressure 154/70 with a pulse of 74. Temperature is 97.7, she is 92% on 2 L nasal cannula. General description is an elderly female lying in bed in no distress. Respiratory system: Unlabored breathing. Clear to auscultation anteriorly. Heart S1, S2. Regular rate and rhythm. Abdomen soft, no tenderness. LABS: Hemoglobin 11.1, white count 7.5 with a BUN of 7, creatinine 0.60. 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 The patient at this time to continue with the Unasyn that will be transitioned to Augmentin to finish course on discharge. Continue supportive care. MMODL / IJN: [id number] /
[2018-04-17] MEDS: AMPICILLIN-SULBACTAM 3 GM in SODIUM CHLORIDE 0.9% 100 ML IVPB SCH ×4 (00:41→18:47)
[2018-04-17] MEDS: HYDROcodone/APAP 10-325MG 1 EACH TAB PO PRN ×3 (03:18→17:13)
[2018-04-17 08:48] LABS: Basophils % (A) 0 %; Eosinophils # (A) 0.2 k/uL (0-0.7); Eosinophils % (A) 2 %; HCT 33.8 % (34.0-46.0); Lymphocytes # (A) 1.1 k/uL (1.0-4.8); Lymphocytes % (A) 16 %; MCH 30.6 pg (25.0-35.0); MCHC 32.6 g/dL (31.0-37.0); MCV 93.8 fL (80.0-100.0); Mean Platelet Volume 7.1; Monocytes # (A) 0.4 k/uL (0-1.0); Monocytes % (A) 6 %; Neutrophils # (A) 5.1 k/uL (1.3-7.7); Neutrophils % (A) 73 %; Platelet Count 241 k/uL (150-450); RBC 3.61 m/uL (3.80-5.40); RDW 13.6 % (11.5-15.5)
[2018-04-17] MEDS: IPRATROPIUM 0.5 MG/2.5 ML NEBU INHALATION SCH ×4 (09:01→19:32)
[2018-04-17 09:10] LABS: Anion Gap 8 mmol/L; Blood Urea Nitrogen 8 mg/dL (7-17); Carbon Dioxide 29 mmol/L (22-30); Chloride 104 mmol/L (98-107); Glucose 89 mg/dL (74-99); Magnesium 1.8 mg/dL (1.6-2.3); Phosphorus 3.1 mg/dL (2.5-4.5); Sodium 141 mmol/L (137-145)
[2018-04-17] MEDS ORDERED: Potassium Replacement Protocol 1 EACH MISC MISCELLANE PRN (09:27)
[2018-04-17] MEDS ORDERED: MAGNESIUM SULFATE-D5W PMX 1 GM in DEXTROSE/WATER 1 100ML.BAG IVPB ONE ×2 (09:30→17:00)
[2018-04-17] MEDS: PANTOPRAZOLE 40 MG TABLET PO SCH (10:19)
[2018-04-17] MEDS: CARVEDILOL 3.125 MG TAB PO SCH ×2 (10:19→17:15)
[2018-04-17] MEDS: FUROSEMIDE 10 MG/ML 10 ML VIAL IV SCH (10:22)
[2018-04-17] MEDS: ASPIRIN 81 MG PO SCH (10:24)
[2018-04-17] MEDS: ALLOPURINOL 100 MG TAB PO SCH (10:24)
[2018-04-17] MEDS: HEPARIN SODIUM,PORCINE 5,000 UNIT/ML 1 ML VIAL SQ SCH ×3 (10:25→20:52)
[2018-04-17] MEDS: LEVOTHYROXINE 100 MCG TAB PO SCH (10:25)
[2018-04-17] MEDS: GABAPENTIN 300 MG CAP PO SCH ×2 (10:25→17:14)
[2018-04-17] MEDS: FLUTICASONE 50MCG/SPRAY NASAL 16GM EA NOSTRIL SCH (10:25)
[2018-04-17] MEDS: LIDOCAINE 5% PATCH TOPICAL SCH (10:25)
[2018-04-17] MEDS: LISINOPRIL 10 MG TAB PO SCH (10:27)
[2018-04-17] MEDS: MAGNESIUM OXIDE 400 MG TAB PO SCH (10:28)
[2018-04-17] MEDS: LORATADINE 10 MG TAB PO SCH (10:28)
[2018-04-17] MEDS: NYSTATIN 100,000 UNIT/GM POWD 15 GM TOPICAL SCH ×2 (10:29→20:52)
[2018-04-17] MEDS: PHENYTOIN SODIUM EXTENDED 100 MG CAP PO SCH ×2 (10:29→17:04)
[2018-04-17] MEDS: SPIRONOLACTONE 25 MG TAB PO SCH (10:30)
[2018-04-17] MEDS: POTASSIUM CHLORIDE ER 20 MEQ TAB.ER PO SCH ×2 (10:32→14:10)
[2018-04-17] MEDS: BISACODYL 10 MG SUPP RECTAL SCH (10:44)
[2018-04-17] MEDS ORDERED: DOCUSATE 100 MG CAP PO PRN (10:45)
--- NOTE | 2018-04-17 11:32 | P.OBCN ---
History of Present Illness Consult date: 04/15/18 Requesting physician: Zan E Sheet Reason for consult: other (Endometrial thickening) Chief complaint: Rectal bleeding History of present illness: This is a 73-year-old female who presented from a residential after a fall and was noted to have rectal bleeding. She was seen by general surgery and found to have ischemic colitis after being taken to the OR for rectal biopsy. At that time it was thought that she may have a rectal abscess but this was not confirmed. It did appear that the bleeding was coming from the rectum however. The patient has had 3 CT scans and one pelvic ultrasounds since admission. Her initial computed tomography scan on 04/06/2018 showed a normal uterus and adnexa. The second computed tomography scan also showed a normal uterus. The third computed tomography scan on 04/12/2018 showed what appeared to be a pararectal abscess and a prominent endometrium along with a 9 mm right posterior bladder lesion. Pelvic ultrasound was done abdominally only on April 13 and the tech did state that it was a very limited exam. This did show an endometrial thickness of 8 mm and normal adnexa but no transvaginal was performed. When questioned, the patient denies any abdominal pain or vaginal bleeding. She initially did give consent for a pelvic exam however during the exam, withdrew her consent. She denies consent for any surgical procedure to evaluate her lining. Please see hospital records and notes for the remainder of her history. Patient does indicate she is with a history of 2 vaginal deliveries. 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 Diabetes mellitus, hypertension, hyperlipidemia, acid reflux, rheumatoid arthritis, seizure disorder, hypothyroidism and most recently found to be having an ischemic cardiomyopathy with an ejection fraction of 20-25%. She also has chronic back pain, vitamin D deficiency, gout, ALLERGIC rhinitis, previous wounds in the Buttock and upper thighs, frequent falls, and debility in general History of Any Multi-Drug Resistant Organisms: None Reported Past Surgical History: Orthopedic Surgery, Tonsillectomy Additional Past Surgical History / Comment(s): right hip replacement, d&c, colonoscopy Past Anesthesia/Blood Transfusion Reactions: No Reported Reaction Smoking Status: Never smoker - Past Family History Mother Family Medical History: Pneumonia, Rheumatoid Arthritis (RA) Additional Family Medical History / Comment(s): from complications of pne at age 56 Father Family Medical History: Congestive Heart Failure (CHF), Diabetes Mellitus Additional Family Medical History / Comment(s): at age 63 Medications and Allergies Home Medications Medication Instructions Recorded Confirmed Type Gabapentin [Neurontin] 300 mg PO BID@0900,1700 06/01/14 04/06/18 History NIFEdipine [NIFEdipine ER] 120 mg PO DAILY@0900 06/01/14 04/06/18 History Phenytoin Sodium Extended 100 mg PO BID@0900,1700 06/22/14 04/06/18 History [Dilantin] Acetaminophen Tab [Tylenol Tab] 650 mg PO Q8H PRN 01/26/18 04/06/18 History Allopurinol [Zyloprim] 100 mg PO DAILY@0900 01/26/18 04/06/18 History Ammonium Lactate Lotion 1 applic TOPICAL HS 01/26/18 04/06/18 History [Lac-Hydrin 12% Lotion] Aspirin 81 mg PO DAILY@0900 01/26/18 04/06/18 History Atorvastatin Calcium [Lipitor] 40 mg PO HS@2100 01/26/18 04/06/18 History Cholecalciferol (Vitamin D3) 2,000 unit PO DAILY@89901/26/18 04/06/18 History [Vitamin D3] Fluticasone Propionate [Flonase 1 spray EA NOSTRIL DAILY@0900 01/26/18 04/06/18 History Allergy Relief] Ipratropium [place] 0.06%Nasal 2 spray EA NOSTRIL Q24H PRN 01/26/18 04/06/18 History [Atrovent Nasal 0.06%] Levothyroxine Sodium [Synthroid] 100 mcg PO DAILY@0900 01/26/18 04/06/18 History Lidocaine 5% Patch [Lidoderm] 1 patch TOPICAL DAILY@89901/26/18 04/06/18 History Lisinopril [Prinivil] 5 mg PO DAILY@0900 01/26/18 04/06/18 History Loperamide HCl [Imodium A-D] 2 mg PO Q24H PRN 01/26/18 04/06/18 History Loratadine [Claritin] 10 mg PO DAILY@0900 01/26/18 04/06/18 History Methyl Salicylate/Menthol 1 patch TOPICAL QAM@0900 01/26/18 04/06/18 History [Salonpas Patch] Miconazole Nitrate [Lotrimin AF 1 applic TOPICAL BID 01/26/18 04/06/18 History Powder] [place]-3 Fatty Acids [[place]-3] 1,000 mg PO BID@0900,2100 01/26/18 04/06/18 History Omeprazole [PriLOSEC] 20 mg PO DAILY@0900 01/26/18 04/06/18 History Potassium Chloride [Klor-Con 10] 10 meq PO DAILY@0900 01/26/18 04/06/18 History Sodium Chloride [Clay] 1 spray EA NOSTRIL TID PRN 01/26/18 04/06/18 History Triad Hydrophilic Wound Dress 1 applic TOPICAL Q12H 01/26/18 04/06/18 History Triamterene/Hydrochlorothiazid 2 tab PO QAM@0900 01/26/18 04/06/18 History [Triamterene-Hctz 37.5-25 mg Tb] HYDROcodone/APAP 10-325MG [[place] 1 tab PO Q8H PRN 04/06/18 04/06/18 History 10-325] Allergies Allergy/AdvReac Type Severity Reaction Status Date / Time codeine Allergy Unknown Verified 04/06/18 13:40 Sulfa (Sulfonamide Allergy Unknown Verified 04/06/18 13:40 Antibiotics) Exam Osteopathic Statement: *. No significant issues noted on an osteopathic structural exam other than those noted in the History and Physical/Consult. - Vital Signs Vital signs: Vital Signs Temp Pulse Pulse Resp BP Pulse Ox 04/15/18 06:26 98.2 F 62 18 130/68 96 04/14/18 23:07 17 04/14/18 22:07 98.3 F 68 17 143/65 96 04/14/18 16:00 66 60 18 04/14/18 15:34 98.0 F 60 18 126/64 94 L 04/14/18 08:00 65 18 04/14/18 07:33 96 Intake and Output 04/14/18 04/15/18 04/15/18 22:59 06:59 14:59 Intake Total 1400 Output Total 508 Balance 892 Intake: Intake, IV Titration 80 Amount IV Fluid Continuation 900 80 ml As IV .[facility] Rx #:[id number] Oral 1320 Output: Urine 500 Stool 8 Other: Voiding Method Diaper Diaper Incontinent Incontinent # Voids 1 2 Weight 82 kg - OBG Physical Exam Vulva: Full but does appear to be edematous. Vagina: Attempted pelvic exam with one gloved finger. Her vagina was noted to be very narrow. I was unable to insert my finger past the tip of the finger before the patient requested I stopped. When I withdrew my finger, there was no blood noted. Vagina: no discharge Results Result Diagrams: 04/14/18 06:32 04/14/18 06:32 Abnormal Lab Results - Last 24 Hours (Table) 04/14/18 04/14/18 Range/Units 06:32 06:32 RBC 3.67 L (3.80-5.40) m/uL Chloride 112 H (98-107) mmol/L Calcium 8.1 L (8.4-10.2) mg/dL Magnesium 1.5 L (1.6-2.3) mg/dL Comments: Pelvic ultrasound-limited exam with no transvaginal. 8 mm endometrial thickness with normal adnexa. CT scan - abdomen: report reviewed CT scan - pelvis: report reviewed Assessment and Plan (1) Endometrial thickening on ultrasound Current Visit: Yes Status: Acute Code(s): R93.8 - ABNORMAL FINDINGS ON DIAGNOSTIC IMAGING OF BODY STRUCTURES SNOMED Code(s): 938268766 Plan: My impression is that this patient has an incidental finding of minimal endometrial prominence or thickening on ultrasound and one CT exam. Her previous 2 CT scans did not show this. The patient denies any vaginal bleeding and no vaginal bleeding is appreciated. In addition the reason for her bleeding has already been diagnosed with her ischemic proctitis. The patient is denying consent for any further surgical procedures to evaluate this. At this time I do not recommend any intervention due to the patient's lack of consent and low probability of endometrial cancer based on the [address] scans earlier. If any further intervention is required are needed, please reconsult.
--- NOTE | 2018-04-17 16:10 | P.PN ---
Subjective this is a pleasant 73 years old female with past medical history of CVA/TIA with residual right hemiparesis and foot drop that needs assistance with mobility, and residual expressive aphasia,diabetes mellitus, GERD, hyperlipidemia, hypertension, renal disease, rheumatoid arthritis, seizure disorder, hypothyroidism she presents [facility], patient was noticed to have some blood in her stool and therefore she was sent to the hospital possible lower GI bleed 04/12/2018 Patient can't communicate with yes or no because of her expressive aphasia or simple words only for example this morning she was saying teeth and pointing to her mouth to get her dentures start eating. Abdominal exam looks soft 04/14/2018 Patient this morning looks clinically the same. She is a thin distress. Overnight her oxygen was on the low side. Repeat chest x-ray showed CHF and possible pneumonia. Patient already on Unasyn. She was started on IV Lasix and check echo. Also patient had CT abdomen and pelvis repeated yesterday which showing tiny up stenosis in the perirectal area, thickened endometrium and urinary bladder lesions on the posterior wall 04/15/2018 Patient is not in distress lying in bed comfortably. Patient afebrile more than 48 hours. She is maintaining 96% oxygen saturation on 3 L/m NC. Blood culture are negative so far 3 at echo shows low ejection fraction around 20%. Cardiology consult to see the patient. Patient is already on Lasix. no more arm or shoulder pain. Patient saturating well 96 and 20 L/m. saturating at 92 on 2 L of the nasal cannula patient may need to be discharged on oxygen. No more GI bleed. No pain. No chest pain no dyspnea. 04/16/2018 Patient is not in distress lying in bed comfortably. Patient afebrile more than 48 hours. She is maintaining 96% oxygen saturation on 3 L/m NC. Blood culture are negative so far 3 at echo shows low ejection fraction around 20%. Cardiology consult to see the patient. Patient is already on Lasix. no more arm or shoulder pain. Patient saturating well 96 and 20 L/m. saturating at 92 on 2 L of the nasal cannula patient may need to be discharged on oxygen. No more GI bleed. No pain. No chest pain no dyspnea Objective - Vital Signs Vital signs: Vital Signs Temp 98.5 F 04/17/18 05:22 Pulse 64 06/24/18 05:22 Resp 16 04/17/18 05:22 BP 146/73 04/17/18 05:22 Pulse Ox 92 L 04/17/18 05:22 Intake & Output 04/16/18 04/17/18 04/17/18 18:59 06:59 18:59 Output Total 500 Balance -500 Weight 82 kg Output: Urine 500 Other: Voiding Method Diaper Diaper Diaper Incontinent Incontinent Incontinent # Voids 3 - Exam GENERAL: The patient is alert and oriented, not in any acute distress. Well developed, well nourished. HEENT: Pupils are round and equally reacting to light. EOMI. No scleral icterus. No conjunctival pallor. Normocephalic, atraumatic. No pharyngeal erythema. No thyromegaly. CARDIOVASCULAR: S1 and S2 present. No murmurs, rubs, or gallops. PULMONARY: Chest is clear to auscultation, no wheezing or crackles. ABDOMEN: Soft, nontender, nondistended, normoactive bowel sounds. No palpable organomegaly. MUSCULOSKELETAL: No joint swelling or deformity. EXTREMITIES: No cyanosis, clubbing, or pedal edema. -NEUROLOGICAL: Gross neurological examination did not reveal any focal deficits. Expressive aphasia [chronic] SKIN: No rashes. - Labs CBC & Chem 7: 04/17/18 08:01 04/17/18 08:01 Labs: Abnormal Lab Results - Last 24 Hours (Table) 04/17/18 04/17/18 Range/Units 08:01 08:01 RBC 3.61 L (3.80-5.40) m/uL Hgb 11.0 L (11.4-16.0) gm/dL Hct 33.8 L (34.0-46.0) % Potassium 3.0 L* (3.5-5.1) mmol/L Calcium 8.0 L (8.4-10.2) mg/dL Assessment and Plan Plan: -Acute on chronic ischemic cardiomyopathy, oxygen saturations at 96% on 2 L via nasal cannula. Patient is started on IV Lasix 60 mg daily.echo: EF 20-30%., Call cardiology consult -Ischemic proctocolitis,possible Rectal abscess, 7 x 2 centimeter and 3 cm perianal abscess on CAT scan of the abdomen and pelvis. patient had low-grade fever of 100.4. surgical consult is appreciated and surgical exploration was done and 04/10/2018 and no abscess with suspicion of proctitis and they recommended colonoscopy, continue with Unasyn with ID recommendation is appreciated. WBC 20.9 K down to 7.3 K -Possible GI bleed, surgical consult was called and endoscopy is not planned as inpatient for now. Hemoglobin and vitals are stable -possible fall, however when asked the patient she denies , she denies to me loss of consciousness, continue with conservative management -Thick endometrium computed tomography scan, patient denies vaginal bleeding or discharge. transvaginal US: Endometrium thickness is at the upper normal limits. As per staff [employer] natural remedy consultant saw the patient and they recommended no further workup but there is no notes in the chart.patient doesn't have vaginal bleeding -Urinary bladder lesions of 9 mm on the posterior wall and the recommended CT urogram (patient recently got contrast into the veins) -hyperlipidemia continue with Lipitor -Hypertension continue with lisinopril and nifedipine Patient refused blood work on 04/13/2018 DVT prophylaxis subcutaneous heparin GI prophylaxis on Protonix Physical therapy recommended [facility], patient to go to her [facility] on discharge prognosis is guarded
[2018-04-17] MEDS: AMMONIUM LACTATE 12% LOTION 225 GM BTL TOPICAL SCH (20:52)
[2018-04-17] MEDS: ATORVASTATIN 40 MG TAB PO SCH (20:52)
[2018-04-18] MEDS: AMPICILLIN-SULBACTAM 3 GM in SODIUM CHLORIDE 0.9% 100 ML IVPB SCH ×5 (00:04→23:58)
--- NOTE | 2018-04-18 00:16 | PN ---
PROGRESS NOTE DATE OF SERVICE: 04/17/2018. REASON FOR FOLLOWUP: Ischemic proctitis with perirectal abscess. INTERVAL HISTORY: The patient is afebrile, has been breathing comfortably. Denies any chest pain. No cough. No nausea, vomiting or diarrhea has been noticed by the nursing staff. EXAMINATION: Blood pressure 145/79 with a pulse of 59, temperature 98.3. She is 98% on room air. General description is an elderly female lying in bed in no distress. Respiratory system: Unlabored breathing. Clear to auscultation anteriorly. Heart S1, S2. Regular rate and rhythm. Abdomen soft, no tenderness. LABS: Hemoglobin is 11, white count 7.0. DIAGNOSTIC IMPRESSION AND PLAN: Patient with ischemic proctitis with perirectal abscess, has been treated medically. Currently on Unasyn, transition to a short course of oral Augmentin. Continue supportive care. MMODL / IJN: [id number] /
[2018-04-18] MEDS: IPRATROPIUM 0.5 MG/2.5 ML NEBU INHALATION SCH ×4 (07:40→18:50)
[2018-04-18] MEDS: HEPARIN SODIUM,PORCINE 5,000 UNIT/ML 1 ML VIAL SQ SCH ×2 (08:14→22:10)
[2018-04-18] MEDS: SPIRONOLACTONE 25 MG TAB PO SCH (08:14)
[2018-04-18] MEDS: LIDOCAINE 5% PATCH TOPICAL SCH (08:14)
[2018-04-18] MEDS: NYSTATIN 100,000 UNIT/GM POWD 15 GM TOPICAL SCH ×2 (08:15→22:11)
[2018-04-18] MEDS: FLUTICASONE 50MCG/SPRAY NASAL 16GM EA NOSTRIL SCH (08:15)
[2018-04-18] MEDS: FUROSEMIDE 10 MG/ML 10 ML VIAL IV SCH (08:15)
[2018-04-18] MEDS: ASPIRIN 81 MG PO SCH (08:16)
[2018-04-18] MEDS: GABAPENTIN 300 MG CAP PO SCH ×2 (08:16→16:51)
[2018-04-18] MEDS: PHENYTOIN SODIUM EXTENDED 100 MG CAP PO SCH ×2 (08:16→16:52)
[2018-04-18] MEDS: LEVOTHYROXINE 100 MCG TAB PO SCH (08:16)
[2018-04-18] MEDS: LISINOPRIL 10 MG TAB PO SCH (08:16)
[2018-04-18] MEDS: CARVEDILOL 3.125 MG TAB PO SCH ×2 (08:16→16:51)
[2018-04-18] MEDS: PANTOPRAZOLE 40 MG TABLET PO SCH (08:16)
[2018-04-18] MEDS: ALLOPURINOL 100 MG TAB PO SCH (08:17)
[2018-04-18] MEDS: LORATADINE 10 MG TAB PO SCH (08:17)
[2018-04-18] MEDS ORDERED: Potassium Replacement Protocol 1 EACH MISC MISCELLANE PRN (11:26)
[2018-04-18 11:49] LABS: Anion Gap 12 mmol/L; Blood Urea Nitrogen 8 mg/dL (7-17); Calcium 8.8 mg/dL (8.4-10.2); Carbon Dioxide 28 mmol/L (22-30); Chloride 101 mmol/L (98-107); Glucose 97 mg/dL (74-99); Magnesium 1.7 mg/dL (1.6-2.3); Phosphorus 3.1 mg/dL (2.5-4.5); Potassium 3.5 mmol/L (3.5-5.1); Sodium 141 mmol/L (137-145)
[2018-04-18] MEDS: POTASSIUM CHLORIDE ER 20 MEQ TAB.ER PO SCH ×2 (12:50→15:07)
--- NOTE | 2018-04-18 13:11 | PN ---
PROGRESS NOTE DATE OF SERVICE: 04/18/2018 REASON FOR FOLLOWUP: Ischemic proctitis and perirectal abscess. INTERVAL HISTORY: The patient is afebrile. She seems to be more awake, alert, and appropriate behavior today. Denies having any chest pain or any cough. No nausea, vomiting, or any diarrhea reported. PHYSICAL EXAMINATION: Blood pressure 161/74 with a pulse of 72, temperature 98.1, she is 95% on 2 L nasal cannula. General description is an elderly female, lying in bed in no distress. RESPIRATORY SYSTEM: Unlabored breathing, clear to auscultation anteriorly. HEART: S1, S2. Regular rate and rhythm. ABDOMEN: Soft, no guarding or rigidity. LABS: Hemoglobin 11, white count 7.0 with a BUN of 8, creatinine 0.61. DIAGNOSTIC IMPRESSION AND PLAN: Patient with ischemic proctitis and possible component of perirectal abscess for which the patient received more than 20 days of antibiotic therapy. She will get a short course of oral Augmentin for about a week to finish the course. Continue supportive care. MMODL / IJN: [id number] /
[2018-04-18 14:37] VITALS: BMI 35.2
[2018-04-18] MEDS: ATORVASTATIN 40 MG TAB PO SCH (22:10)
[2018-04-18] MEDS: AMMONIUM LACTATE 12% LOTION 225 GM BTL TOPICAL SCH (22:11)
[2018-04-18] MEDS: HYDROcodone/APAP 10-325MG 1 EACH TAB PO PRN (22:11)
--- NOTE | 2018-04-18 23:49 | P.PN ---
Subjective this is a pleasant 73 years old female with past medical history of CVA/TIA with residual right hemiparesis and foot drop that needs assistance with mobility, and residual expressive aphasia,diabetes mellitus, GERD, hyperlipidemia, hypertension, renal disease, rheumatoid arthritis, seizure disorder, hypothyroidism she presents from long term for a fall, patient was noticed to have some blood in her stool and therefore she was sent to the hospital possible lower GI bleed 04/12/2018 Patient can't communicate with yes or no because of her expressive aphasia or simple words only for example this morning she was saying teeth and pointing to her mouth to get her dentures start eating. Abdominal exam looks soft 04/14/2018 Patient this morning looks clinically the same. She is a thin distress. Overnight her oxygen was on the low side. Repeat chest x-ray showed CHF and possible pneumonia. Patient already on Unasyn. She was started on IV Lasix and check echo. Also patient had CT abdomen and pelvis repeated yesterday which showing tiny up stenosis in the perirectal area, thickened endometrium and urinary bladder lesions on the posterior wall 04/15/2018 Patient is not in distress lying in bed comfortably. Patient afebrile more than 48 hours. She is maintaining 96% oxygen saturation on 3 L/m NC. Blood culture are negative so far 3 at echo shows low ejection fraction around 20%. Cardiology consult to see the patient. Patient is already on Lasix. no more arm or shoulder pain. Patient saturating well 96 and 20 L/m. saturating at 92 on 2 L of the nasal cannula patient may need to be discharged on oxygen. No more GI bleed. No pain. No chest pain no dyspnea. 04/16/2018 Patient is not in distress lying in bed comfortably. Patient afebrile more than 48 hours. She is maintaining 96% oxygen saturation on 3 L/m NC. Blood culture are negative so far 3 at echo shows low ejection fraction around 20%. Cardiology consult to see the patient. Patient is already on Lasix. no more arm or shoulder pain. Patient saturating well 96 and 20 L/m. saturating at 92 on 2 L of the nasal cannula patient may need to be discharged on oxygen. No more GI bleed. No pain. No chest pain no dyspnea 04/18/18 pt was cleared by consultants for discharge, pt is stable, pt wants to be discharged . pending placement Objective - Vital Signs Vital signs: Vital Signs Temp 99 F 04/18/18 22:00 Pulse 73 04/18/18 22:00 Resp 16 04/18/18 22:00 BP 139/68 04/18/18 22:00 Pulse Ox 95 04/18/18 22:00 Intake & Output 04/18/18 04/18/18 04/19/18 06:59 18:59 06:59 Intake Total 320 240 Output Total 504 Balance 320 -504 240 Weight 84.5 kg 84.5 kg Intake: Intake, IV Titration 200 Amount Ampicillin-Sulbactam 3 gm 200 In Sodium Chloride 0.9% 100 ml @ 100 mls/hr IVPB Q6HR [facility] Rx#:[id number] Oral 120 240 Output: Urine 500 Stool 4 Other: Voiding Method Diaper Diaper Incontinent Incontinent # Voids 3 # Bowel Movements 1 - Exam GENERAL: The patient is alert and oriented, not in any acute distress. Well developed, well nourished. HEENT: Pupils are round and equally reacting to light. EOMI. No scleral icterus. No conjunctival pallor. Normocephalic, atraumatic. No pharyngeal erythema. No thyromegaly. CARDIOVASCULAR: S1 and S2 present. No murmurs, rubs, or gallops. PULMONARY: Chest is clear to auscultation, no wheezing or crackles. ABDOMEN: Soft, nontender, nondistended, normoactive bowel sounds. No palpable organomegaly. MUSCULOSKELETAL: No joint swelling or deformity. EXTREMITIES: No cyanosis, clubbing, or pedal edema. -NEUROLOGICAL: Gross neurological examination did not reveal any focal deficits. Expressive aphasia [chronic] SKIN: No rashes. - Labs CBC & Chem 7: 04/17/18 08:01 04/18/18 11:17 Assessment and Plan Plan: -Acute on chronic ischemic cardiomyopathy, oxygen saturations at 96% on 2 L via nasal cannula. Patient is started on IV Lasix 60 mg daily.echo: EF 20-30%., Call cardiology consult -Ischemic proctocolitis,possible Rectal abscess, 7 x 2 centimeter and 3 cm perianal abscess on CAT scan of the abdomen and pelvis. patient had low-grade fever of 100.4. surgical consult is appreciated and surgical exploration was done and 04/10/2018 and no abscess with suspicion of proctitis and they recommended colonoscopy, continue with Unasyn with ID recommendation is appreciated. WBC 20.9 K down to 7.3 K -Possible GI bleed, surgical consult was called and endoscopy is not planned as inpatient for now. Hemoglobin and vitals are stable -possible fall, however when asked the patient she denies , she denies to me loss of consciousness, continue with conservative management -Thick endometrium computed tomography scan, patient denies vaginal bleeding or discharge. transvaginal US: Endometrium thickness is at the upper normal limits. As per staff [employer] senior management consultant saw the patient and they recommended no further workup but there is no notes in the chart.patient doesn't have vaginal bleeding -Urinary bladder lesions of 9 mm on the posterior wall and the recommended CT urogram (patient recently got contrast into the veins) -hyperlipidemia continue with Lipitor -Hypertension continue with lisinopril and nifedipine Patient refused blood work on 04/13/2018 DVT prophylaxis subcutaneous heparin GI prophylaxis on Protonix Physical therapy recommended [facility], patient to go to her long term on discharge prognosis is guarded
[2018-04-19] MEDS: AMPICILLIN-SULBACTAM 3 GM in SODIUM CHLORIDE 0.9% 100 ML IVPB SCH ×2 (05:29→11:49)
[2018-04-19 06:10] VITALS: BP 126/62; TEMP 98.8
[2018-04-19] MEDS: IPRATROPIUM 0.5 MG/2.5 ML NEBU INHALATION SCH ×3 (08:33→15:58)
[2018-04-19 08:36] VITALS: RESP 16
[2018-04-19 08:36] LABS: Magnesium 1.6 mg/dL (1.6-2.3); Phosphorus 3.2 mg/dL (2.5-4.5); Potassium 3.8 mmol/L (3.5-5.1)
[2018-04-19] MEDS: NYSTATIN 100,000 UNIT/GM POWD 15 GM TOPICAL SCH (09:01)
[2018-04-19] MEDS: ALLOPURINOL 100 MG TAB PO SCH (09:02)
[2018-04-19] MEDS: LEVOTHYROXINE 100 MCG TAB PO SCH (09:02)
[2018-04-19] MEDS: FLUTICASONE 50MCG/SPRAY NASAL 16GM EA NOSTRIL SCH (09:02)
[2018-04-19] MEDS: SPIRONOLACTONE 25 MG TAB PO SCH (09:02)
[2018-04-19] MEDS: LORATADINE 10 MG TAB PO SCH (09:03)
[2018-04-19] MEDS: LISINOPRIL 10 MG TAB PO SCH (09:03)
[2018-04-19] MEDS: FUROSEMIDE 10 MG/ML 10 ML VIAL IV SCH (09:03)
[2018-04-19] MEDS: PANTOPRAZOLE 40 MG TABLET PO SCH (09:03)
[2018-04-19] MEDS: PHENYTOIN SODIUM EXTENDED 100 MG CAP PO SCH (09:03)
[2018-04-19] MEDS: CARVEDILOL 3.125 MG TAB PO SCH (09:03)
[2018-04-19] MEDS: LIDOCAINE 5% PATCH TOPICAL SCH (09:03)
[2018-04-19] MEDS: ASPIRIN 81 MG PO SCH (09:03)
[2018-04-19] MEDS: GABAPENTIN 300 MG CAP PO SCH (09:03)
[2018-04-19] MEDS: HEPARIN SODIUM,PORCINE 5,000 UNIT/ML 1 ML VIAL SQ SCH (09:04)
[2018-04-19] MEDS: ALPRAZolam 0.25 MG TAB PO PRN (09:17)
--- NOTE | 2018-04-19 14:59 | P.DS ---
Providers Date of admission: 04/06/18 15:08 Attending physician: Krystian Orr Consults: 04/07/18 09:54 Consult Physician Routine Consulting Provider: Efe Oneal Consult Reason/Comments: rectal bleeding Do you want consulting provider notified?: Yes 04/08/18 15:18 Consult Physician Routine Consulting Provider: Julio Wetzel Consult Reason/Comments: Possible perirectal abscess Do you want consulting provider notified?: Yes 04/12/18 16:36 Consult Physician Routine Consulting Provider: Amelia Caraballo Consult Reason/Comments: sob,congestion Do you want consulting provider notified?: Yes 04/14/18 18:27 Consult Physician Routine Consulting Provider: Manda James Consult Reason/Comments: Endometrial thickening Do you want consulting provider notified?: Yes, Notify in am 04/14/18 18:29 Consult Physician Routine Consulting Provider: Kassidy Thomas Consult Reason/Comments: CHF Do you want consulting provider notified?: Already Contacted Primary care physician: [facility] Hospital Course: this is a pleasant 73 years old female with past medical history of 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 Patient was found to have perirectal fluid collection suspicious for infection. ID and surgical team's evaluated the patient and from the beginning. However they surgical team did not recommend any surgical intervention and patient was treated empirically with antibiotics and she showed interval interval improvement. On the day of discharge she doesn't have fever and leukocytosis is improved. She finished almost 20 days of antibiotics in house. She is going to be discharged on Augmentin for 7 days. 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 Patient found to have severe low ejection fraction at 20/25%. She was evaluated by venetian blind installer recommended medical management with lisinopril Coreg and spironolactone. And continue with aspirin which patient was taking at home. Patient also had incidental finding of 9 mm lesions with the posterior wall and recommended urological test and evaluation. Patient was referred to urologist appointment discharge. Physical therapy recommendation to place patient to rehab versus ECF. However patient has guardian or tic to this recommendation stating that she has 24-hour care Patient was cleared by cardiology, surgery, ID, for discharge Patient was found stable and can be discharged to her adult living home, however she needs follow-up as an outpatient Appointments were made from cardiology, cardiology, surgery, and and infectious disease and PCP Surgical team and they felt does not necessarily for the patient to follow-up with them. Call cardiology and urology offices were contacted by the nursing staff and they instructed to call the patient to schedule an appointment. RN Rizwana confirmed to me she talked to the Guardian and updated him with the appointments and indications for such appointments. Discharge physical examination General she is awake, aphasic, she can communicate with few words only CVS, S1-S2, regular rate and rhythm. No murmur Lungs clear to auscultation bilaterally, no wheezing Abdomen soft Extremities +1 swelling and leg edema Time spent more than 35 minutes Patient Condition at Discharge: Serious Plan - Discharge Summary Discharge Rx Participant: No New Discharge Prescriptions: New Amoxic-Pot Clav 875-125Mg [Augmentin 875-125] 1 tab PO Q12HR 7 Days #14 tablet Carvedilol [Coreg] 3.125 mg PO BID-W/MEALS #60 tab Lisinopril [Zestril] 10 mg PO DAILY #30 tab Spironolactone [Aldactone] 25 mg PO DAILY #30 tab ALPRAZolam [Xanax] 0.25 mg PO BID PRN #0 tab PRN Reason: Anxiety Continue Gabapentin [Neurontin] 300 mg PO BID@0900,1700 Phenytoin Sodium Extended [Dilantin] 100 mg PO BID@0900,1700 Miconazole Nitrate [Lotrimin AF Powder] 1 applic TOPICAL BID Ammonium Lactate Lotion [Lac-Hydrin 12% Lotion] 1 applic TOPICAL HS Acetaminophen Tab [Tylenol] 650 mg PO Q8H PRN PRN Reason: Pain Sodium Chloride [Onslow] 1 spray EA NOSTRIL TID PRN PRN Reason: Congestion Loperamide HCl [Imodium A-D] 2 mg PO Q24H PRN PRN Reason: Diarrhea Ipratropium [place] 0.06%Nasal [Atrovent Nasal 0.06%] 2 spray EA NOSTRIL Q24H PRN PRN Reason: Wheezing Omeprazole [PriLOSEC] 20 mg PO DAILY@0900 Holt-3 Fatty Acids [[place]olt-3] 1,000 mg PO BID@0900,2100 Cholecalciferol (Vitamin D3) [Vitamin D3] 2,000 unit PO DAILY@0900 Triamterene/Hydrochlorothiazid [Triamterene-Hctz 37.5-25 mg Tb] 2 tab PO QAM@ 0900 Methyl Salicylate/Menthol [Salonpas Patch] 1 patch TOPICAL QAM@0900 Loratadine [Claritin] 10 mg PO DAILY@0900 Lidocaine 5% Patch [Lidoderm 5% Patch] 1 patch TOPICAL DAILY@0900 Levothyroxine Sodium [Synthroid] 100 mcg PO DAILY@0900 Potassium Chloride [Klor-Con 10] 10 meq PO DAILY@0900 Fluticasone Propionate [Flonase Allergy Relief] 1 spray EA NOSTRIL DAILY@0900 Atorvastatin Calcium [Lipitor] 40 mg PO HS@2100 Aspirin 81 mg PO DAILY@0900 Allopurinol [Zyloprim] 100 mg PO DAILY@0900 Triad Hydrophilic Wound Dress 1 applic TOPICAL Q12H HYDROcodone/APAP 10-325MG [[place]rill 10-325] 1 tab PO Q8H PRN PRN Reason: Pain Discontinued NIFEdipine [NIFEdipine ER] 120 mg PO DAILY@0900 Lisinopril [Prinivil] 5 mg PO DAILY@0900 Discharge Medication List Gabapentin [Neurontin] 300 mg PO BID@0900,1700 06/01/14 [History] Phenytoin Sodium Extended [Dilantin] 100 mg PO BID@0900,1700 06/22/14 [History] Acetaminophen Tab [Tylenol] 650 mg PO Q8H PRN 01/26/18 [History] Allopurinol [Zyloprim] 100 mg PO DAILY@0900 01/26/18 [History] Ammonium Lactate Lotion [Lac-Hydrin 12% Lotion] 1 applic TOPICAL HS 01/26/18 [ History] Aspirin 81 mg PO DAILY@0900 01/26/18 [History] Atorvastatin Calcium [Lipitor] 40 mg PO HS@2100 01/26/18 [History] Cholecalciferol (Vitamin D3) [Vitamin D3] 2,000 unit PO DAILY@0900 01/26/18 [ History] Fluticasone Propionate [Flonase Allergy Relief] 1 spray EA NOSTRIL DAILY@09 [History] Ipratropium [place] 0.06%Nasal [Atrovent Nasal 0.06%] 2 spray EA NOSTRIL Q24H PRN 01/26/18 [History] Levothyroxine Sodium [Synthroid] 100 mcg PO DAILY@89901/26/18 [History] Lidocaine 5% Patch [Lidoderm 5% Patch] 1 patch TOPICAL DAILY@89901/26/18 [ History] Loperamide HCl [Imodium A-D] 2 mg PO Q24H PRN 01/26/18 [History] Loratadine [Claritin] 10 mg PO DAILY@89901/26/18 [History] Methyl Salicylate/Menthol [Salonpas Patch] 1 patch TOPICAL QAM@89901/26/18 [ History] Miconazole Nitrate [Lotrimin AF Powder] 1 applic TOPICAL BID 01/26/18 [History] Holt-3 Fatty Acids [[place]olt-3] 1,000 mg PO BID@0900,2100 01/26/18 [History] Omeprazole [PriLOSEC] 20 mg PO DAILY@89901/26/18 [History] Potassium Chloride [Klor-Con 10] 10 meq PO DAILY@89901/26/18 [History] Sodium Chloride [Onslow] 1 spray EA NOSTRIL TID PRN 01/26/18 [History] Triad Hydrophilic Wound Dress 1 applic TOPICAL Q12H 01/26/18 [History] Triamterene/Hydrochlorothiazid [Triamterene-Hctz 37.5-25 mg Tb] 2 tab PO QAM@ 89901/26/18 [History] HYDROcodone/APAP 10-325MG [[place]rill 10-325] 1 tab PO Q8H PRN 04/06/18 [History] ALPRAZolam [Xanax] 0.25 mg PO BID PRN #0 tab 04/19/18 [Rx] Amoxic-Pot Clav 875-125Mg [Augmentin 875-125] 1 tab PO Q12HR 7 Days #14 tablet 04/19/18 [Rx] Carvedilol [Coreg] 3.125 mg PO BID-W/MEALS #60 tab 06/26/18 [Rx] Lisinopril [Zestril] 10 mg PO DAILY #30 tab 04/19/18 [Rx] Spironolactone [Aldactone] 25 mg PO DAILY #30 tab 04/19/18 [Rx] Follow up Appointment(s)/Referral(s): Wil Jimenez MD [Primary Care Provider] - 04/21/18 11:40 am Herson Avina MD [STAFF PHYSICIAN] - 2 Weeks (Dr. Avina's office will call [facility] with appointment date and time.) Kassidy Thomas MD [STAFF PHYSICIAN] - 2 Weeks (Dr. Thomas's office will call [facility] with appointment date and time.) Maryann Arnold MD [STAFF PHYSICIAN] - As Needed Activity/Diet/Wound Care/Special Instructions: cardiac diet activity as tolerated Optifoam liquitrap border foam dressing to coccyx area. Barrier cream to Stage II ulcers on right and left buttocks. O2 at 2L via n/c Discharge Disposition: HOME SELF-CARE
[2018-04-19 15:26] VITALS: PULSE 64
--- NOTE | 2018-04-19 18:25 | PN ---
PROGRESS NOTE DATE OF SERVICE: 04/19/2018 REASON FOR FOLLOWUP: Ischemic proctitis with perirectal abscess. INTERVAL HISTORY: The patient was seen on rounds this morning. The patient has been afebrile. She has been breathing comfortably. No nausea. No vomiting. No abdominal pain or diarrhea present as per staff. PHYSICAL EXAMINATION: Blood pressure 126/62 with a pulse of 64, temperature 98.8. She is 97% on room air. General description is an elderly female lying in bed in no distress. RESPIRATORY SYSTEM: Unlabored breathing. Clear to auscultation anteriorly. HEART: S1, S2. Regular rate and rhythm. ABDOMEN: Soft. No tenderness. LABS: No new labs have been obtained today. DIAGNOSTIC IMPRESSION AND PLAN: Patient with ischemic proctitis with perirectal abscess. Patient with oral Augmentin for about a week with close outpatient followup. MMODL / IJN: [id number] /
== END 2018-04-19 16:10 | DRG 871 ==
LOC: EC 12:50 → 6SEL 15:08 → 5MS5E 04-07 19:45
PROVIDERS: ADMIT Hospitalist; ATTEND Hospitalist
PROC: 0DBP8ZX Excision of Rectum, Via Natural or Artificial Opening Endoscopic, Diagnostic (ICD-10-PCS; principal; 2018-04-10 08:46)
DX: A41.9 Sepsis, unspecified organism (principal); J96.01 Acute respiratory failure with hypoxia; N17.0 Acute kidney failure with tubular necrosis; I50.23 Acute on chronic systolic (congestive) heart failure; E87.2 Acidosis; I13.0 Hypertensive heart and chronic kidney disease with heart failure and stage 1 through stage 4 chronic kidney disease, or unspecified chronic kidney disease; I69.351 Hemiplegia and hemiparesis following cerebral infarction affecting right dominant side; J98.11 Atelectasis; K55.9 Vascular disorder of intestine, unspecified; K61.2 Anorectal abscess; N39.0 Urinary tract infection, site not specified; D64.9 Anemia, unspecified; E03.9 Hypothyroidism, unspecified; E11.22 Type 2 diabetes mellitus with diabetic chronic kidney disease; E55.9 Vitamin D deficiency, unspecified; E78.5 Hyperlipidemia, unspecified; E83.42 Hypomagnesemia; E86.0 Dehydration; G40.909 Epilepsy, unspecified, not intractable, without status epilepticus; E11.42 Type 2 diabetes mellitus with diabetic polyneuropathy; I25.2 Old myocardial infarction; I25.5 Ischemic cardiomyopathy; I35.8 Other nonrheumatic aortic valve disorders; I69.320 Aphasia following cerebral infarction; K21.9 Gastro-esophageal reflux disease without esophagitis; K44.9 Diaphragmatic hernia without obstruction or gangrene; M06.9 Rheumatoid arthritis, unspecified; M10.9 Gout, unspecified; M19.91 Primary osteoarthritis, unspecified site; N18.2 Chronic kidney disease, stage 2 (mild); N20.0 Calculus of kidney; N32.9 Bladder disorder, unspecified; R32 Unspecified urinary incontinence; R47.02 Dysphasia; W19.XXXA Unspecified fall, initial encounter; Z79.82 Long term (current) use of aspirin; Z79.899 Other long term (current) drug therapy; Z82.49 Family history of ischemic heart disease and other diseases of the circulatory system; Z82.61 Family history of arthritis; Z83.3 Family history of diabetes mellitus; Z95.810 Presence of automatic (implantable) cardiac defibrillator; Z96.641 Presence of right artificial hip joint; Z79.890 Hormone replacement therapy; Z88.5 Allergy status to narcotic agent; Z88.2 Allergy status to sulfonamides; L89.322 Pressure ulcer of left buttock, stage 2; L89.312 Pressure ulcer of right buttock, stage 2
CPT/HCPCS: 36415; 36600; 71045; 71046; 72193; 74019; 74177; 76856; 80048; 80053; 81001; 82040; 82140; 82272; 82330; 82378; 82805; 83605; 83690; 83735; 84100; 84132; 84478; 84484; 85025; 85610; 85730; 87040; 88305; 93005; 93306; 94640; 94760; 96361; 96374; 96375; 99285

== ENCOUNTER 2018-04-25 15:10 | Emergency (ER) | payer MEDICARE, OTHER ==
[2018-04-25 15:16] VITALS: RESP 18
--- NOTE | 2018-04-25 15:37 | ED ---
General Adult HPI - General Chief complaint: Fall Stated complaint: Fall Time Seen by Provider: 04/25/18 15:22 Source: EMS, RN notes reviewed Mode of arrival: EMS Limitations: language barrier, altered mental status - History of Present Illness Initial comments: Patient 73-year-old female presents to emergency room today by EMS, the chief complaint of a fall that occurred approximately 2 hours ago. Patient states that she was at a alf. She recently had a stroke and is staying there. She states that she slipped out of her wheelchair and fell down. She does admit that stroke caused paralysis of the right side. She states she has limited feeling. Patient does admit to pain over the right knee area is palpated. Patient states she bumped her head on the dresser but did not hit it very hard. She denies any loss consciousness. States not on any blood thinners. Denies any headache. Denies any other complaints. Patient denies any recent fever, chills, shortness of breath, chest pain, back pain, abdominal pain, nausea or vomiting, headaches or visual changes, or any other complaints. - Related Data Home Medications Medication Instructions Recorded Confirmed Gabapentin [Neurontin] 300 mg PO BID@0900,209906/01/14 04/25/18 Phenytoin Sodium Extended 100 mg PO BID@0900,209906/22/14 04/25/18 [Dilantin] Acetaminophen Tab [Tylenol] 650 mg PO Q8H PRN 01/26/18 04/25/18 Allopurinol [Zyloprim] 100 mg PO DAILY@89901/26/18 04/25/18 Ammonium Lactate Lotion 1 applic TOPICAL HS 01/26/18 04/25/18 [Lac-Hydrin 12% Lotion] Aspirin 81 mg PO DAILY@89901/26/18 04/25/18 Atorvastatin Calcium [Lipitor] 40 mg PO HS@209901/26/18 04/25/18 Cholecalciferol (Vitamin D3) 2,000 unit PO DAILY@89901/26/18 04/25/18 [Vitamin D3] Fluticasone Propionate [Flonase 1 spray EA NOSTRIL DAILY@00 01/26/18 04/25/18 Allergy Relief] Ipratropium [place] 0.06%Nasal 2 spray EA NOSTRIL Q24H PRN 01/26/18 04/25/18 [Atrovent Nasal 0.06%] Levothyroxine Sodium [Synthroid] 100 mcg PO DAILY@0901/26/18 04/25/18 Lidocaine 5% Patch [Lidoderm 5% 1 patch TOPICAL DAILY@59901/26/18 04/25/18 Patch] Loperamide HCl [Imodium A-D] 2 mg PO Q24H PRN 01/26/18 04/25/18 Loratadine [Claritin] 10 mg PO DAILY@0901/26/18 04/25/18 Methyl Salicylate/Menthol 1 patch TOPICAL QAM@59901/26/18 04/25/18 [Salonpas Patch] Miconazole Nitrate [Lotrimin AF 1 applic TOPICAL BID 01/26/18 04/25/18 Powder] [place]-3 Fatty Acids [[place]-3] 1,000 mg PO BID@0900,2100 01/26/18 04/25/18 Omeprazole [PriLOSEC] 20 mg PO DAILY@59901/26/18 04/25/18 Potassium Chloride [Klor-Con 10] 10 meq PO DAILY@89901/26/18 04/25/18 Triad Hydrophilic Wound Dress 1 applic TOPICAL Q12H 01/26/18 04/25/18 Triamterene/Hydrochlorothiazid 2 tab PO QAM@89901/26/18 04/25/18 [Triamterene-Hctz 37.5-25 mg Tb] HYDROcodone/APAP 10-325MG [[place] 1 tab PO Q6H PRN 04/06/18 04/25/18 10-325] Amoxic-Pot Clav 875-125Mg 1 tab PO Q12HR@0900,2100 04/25/18 04/25/18 [Augmentin 875-125] Collagenase [Santyl] 1 applic TOPICAL DAILY 04/25/18 04/25/18 Lisinopril [Zestril] 10 mg PO DAILY@89904/25/18 04/25/18 Sodium Chloride [Juab] 1 spray EA NOSTRIL Q8H PRN 04/25/18 04/25/18 Spironolactone [Aldactone] 25 mg PO DAILY@59904/25/18 04/25/18 Previous Rx's Medication Instructions Recorded ALPRAZolam [Xanax] 0.25 mg PO BID PRN #0 tab 04/19/18 Carvedilol [Coreg] 3.125 mg PO BID-W/MEALS #60 tab 04/19/18 Allergies Allergy/AdvReac Type Severity Reaction Status Date / Time codeine Allergy Unknown Verified 04/25/18 16:06 Sulfa (Sulfonamide Allergy Unknown Verified 04/25/18 16:06 Antibiotics) Review of Systems ROS Statement: Those systems with pertinent positive or pertinent negative responses have been documented in the HPI. ROS Other: All systems not noted in ROS Statement are negative. 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 Diabetes mellitus, hypertension, hyperlipidemia, acid reflux, rheumatoid arthritis, seizure disorder, hypothyroidism and most recently found to be having an ischemic cardiomyopathy with an ejection fraction of 20-25%. She also has chronic back pain, vitamin D deficiency, gout, ALLERGIC rhinitis, previous wounds in the Buttock and upper thighs, frequent falls, and debility in general History of Any Multi-Drug Resistant Organisms: None Reported Past Surgical History: Orthopedic Surgery, Tonsillectomy Additional Past Surgical History / Comment(s): right hip replacement, d&c, colonoscopy Past Anesthesia/Blood Transfusion Reactions: No Reported Reaction Past Psychological History: No Psychological Hx Reported Smoking Status: Never smoker - Past Family History Mother Family Medical History: Pneumonia, Rheumatoid Arthritis (RA) Additional Family Medical History / Comment(s): from complications of pne at age 56 Father Family Medical History: Congestive Heart Failure (CHF), Diabetes Mellitus Additional Family Medical History / Comment(s): at age 63 General Exam - General Exam Comments Initial Comments: General: The patient is awake and alert, in no distress, and does not appear acutely ill. Eye: Pupils are equal, round and reactive to light, extra-ocular movements are intact. No nystagmus. There is normal conjunctiva bilaterally. No signs of icterus. Ears, nose, mouth and throat: There are moist mucous membranes and no oral lesions. Neck: The neck is supple, there is no tenderness or JVD. Cardiovascular: There is a regular rate and rhythm. No murmur, rub or gallop is appreciated. Respiratory: Lungs are clear to auscultation, respirations are non-labored, breath sounds are equal. No wheezes, stridor, rales, or rhonchi. Musculoskeletal: Patient has limited range of motion of both the right upper and lower extremity due to recent stroke. Patient has no bony tenderness over the right upper, left upper extremities. Patient does have tenderness to the right knee on palpation over the anterior aspect. Pulses equal bilaterally 2+. Neurological: A&O x 3. CN II-XII intact. Limited movement of the right side due to recent stroke. Skin: Skin is warm and dry and no rashes or lesions are noted. Psychiatric: Cooperative, appropriate mood & affect, normal judgment. Limitations: language barrier, altered mental status Course Vital Signs 04/25/18 15:11 Temperature 98.0 F Pulse Rate 66 Respiratory 18 Rate Blood Pressure 118/56 O2 Sat by Pulse 96 Oximetry Medical Decision Making - Medical Decision Making Patient's x-rays reviewed shows no acute fracture dislocation. Results were discussed with the patient and family at bedside. Options were discussed with further imaging of CAT scan of the head. They have declined. Patient states there is no headache. Patient does have some mild swelling to the right knee. Son at bedside states that this is not new. States this is the same of swelling. No evidence for cellulitis. Son states he will continue to monitor area. Advised to follow-up over the next 2 days return if symptoms increase or worsen. Disposition Clinical Impression: Fall Disposition: HOME SELF-CARE Condition: Good Instructions: Fall Prevention for Older Adults (ED) Additional Instructions: Please use medication as discussed. Please follow-up with family doctor in the next 2 days. Please return to emergency room if the symptoms increase or worsen or for any other concerns. Is patient prescribed a controlled substance at d/c from ED?: No Referrals: Wil Jimenez MD [Primary Care Provider] - 1-2 days Time of Disposition: 17:09
--- NOTE | 2018-04-25 16:32 | XR ---
Right knee HISTORY: Pain 3 views of the right knee There is chondrocalcinosis. Bone mineralization is mildly reduced. Joint space loss is present in the medial compartment with marginal spurring. Question soft tissue swelling. Vascular calcifications ar e noted. No fracture or dislocation. There may be a small joint effusion. 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 Correlate for edema, cellulitis.
--- NOTE | 2018-04-25 16:34 | XR ---
EXAMINATION TYPE: XR Hip RT and AP Pelvis DATE OF EXAM: 04/25/2018 COMPARISON: CT abdomen pelvis 04/12/2018 HISTORY: Pain TECHNIQUE: A single AP view of the pelvis is obtained. Two views of the right hip are obtained. FINDINGS: There is no acute fracture/dislocation evident in the pelvis. The hip and sacroiliac join ts appear symmetric and unremarkable. The overlying soft tissue appears unremarkable. Patient is sta tus post right hip arthroplasty. Joint space loss present within the hips, question chondrocalcinosis . Some marginal spurring present in the right hip, correlate for possible femoral acetabular impingem ent. Bone mineralization is low which may limit sensitivity. There are vascular calcifications presen t in the pelvis. Two views of right hip show no acute fracture or dislocation. No focal lytic or sclerotic lesion see n in the proximal right femur. The overlying soft tissue is unremarkable. IMPRESSION: There is no acute fracture or dislocation in the pelvis or right hip. Correlate for poss ible crystal deposition arthropathy, femoral acetabular impingement. Osteopenia.
[2018-04-25 18:39] VITALS: BP 134/87; PULSE 75; TEMP 97.4
== END 2018-04-25 19:55 | disposition home or self-care (01) ==
LOC: EC 15:10
DX: M79.89 Other specified soft tissue disorders (principal); M25.561 Pain in right knee; I69.351 Hemiplegia and hemiparesis following cerebral infarction affecting right dominant side; R41.82 Altered mental status, unspecified; R29.6 Repeated falls; E78.5 Hyperlipidemia, unspecified; I11.9 Hypertensive heart disease without heart failure; K21.9 Gastro-esophageal reflux disease without esophagitis; E03.9 Hypothyroidism, unspecified; E55.9 Vitamin D deficiency, unspecified; G40.909 Epilepsy, unspecified, not intractable, without status epilepticus; M06.9 Rheumatoid arthritis, unspecified; M10.9 Gout, unspecified; Z79.51 Long term (current) use of inhaled steroids; Z79.82 Long term (current) use of aspirin; Z79.899 Other long term (current) drug therapy; Z88.2 Allergy status to sulfonamides; Z88.5 Allergy status to narcotic agent; Z87.09 Personal history of other diseases of the respiratory system; Z96.641 Presence of right artificial hip joint; W05.0XXA Fall from non-moving wheelchair, initial encounter; W22.8XXA Striking against or struck by other objects, initial encounter; Y92.129 Unspecified place in nursing home as the place of occurrence of the external cause
CPT/HCPCS: 73502; 99283

== ENCOUNTER 2018-04-29 15:05 | Emergency (ER) | payer MEDICARE, OTHER ==
--- NOTE | 2018-04-29 15:34 | ED ---
General Adult HPI - General Stated complaint: FALL Time Seen by Provider: 04/29/18 15:09 Source: patient, EMS, RN notes reviewed Mode of arrival: EMS Limitations: altered mental status - History of Present Illness Initial comments: 73-year-old female presents from chief complaint of a fall. Patient currently is at [facility] on the leg. Patient states that she fell out of her wheelchair. There was reports that she struck her head there is no loss conscious. Patient does not take any blood thinners. Patient has chronic back pain the usual. She 's had a normal baseline per staff. Patient denies any extremity injury including leg, upper extremity injury. Patient hasn't chest pain - Related Data Home Medications Medication Instructions Recorded Confirmed Gabapentin [Neurontin] 300 mg PO BID@0900,209906/01/14 04/29/18 Phenytoin Sodium Extended 100 mg PO BID@0900,209906/22/14 04/29/18 [Dilantin] Acetaminophen Tab [Tylenol] 650 mg PO Q8H PRN 01/26/18 04/29/18 Allopurinol [Zyloprim] 100 mg PO DAILY@89901/26/18 04/29/18 Ammonium Lactate Lotion 1 applic TOPICAL HS 01/26/18 04/29/18 [Lac-Hydrin 12% Lotion] Aspirin 81 mg PO DAILY@89901/26/18 04/29/18 Atorvastatin Calcium [Lipitor] 40 mg PO HS@209901/26/18 04/29/18 Cholecalciferol (Vitamin D3) 2,000 unit PO DAILY@89901/26/18 04/29/18 [Vitamin D3] Fluticasone Propionate [Flonase 1 spray EA NOSTRIL DAILY@89901/26/18 04/29/18 Allergy Relief] Ipratropium [place] 0.06%Nasal 2 spray EA NOSTRIL Q24H PRN 01/26/18 04/29/18 [Atrovent Nasal 0.06%] Levothyroxine Sodium [Synthroid] 100 mcg PO DAILY@59901/26/18 04/29/18 Lidocaine 5% Patch [Lidoderm 5% 1 patch TOPICAL DAILY@59901/26/18 04/29/18 Patch] Loperamide HCl [Imodium A-D] 2 mg PO Q24H PRN 01/26/18 04/29/18 Loratadine [Claritin] 10 mg PO DAILY@0900 01/26/18 04/29/18 Methyl Salicylate/Menthol 1 patch TOPICAL QAM@0601/26/18 04/29/18 [Salonpas Patch] Miconazole Nitrate [Lotrimin AF 1 applic TOPICAL BID 01/26/18 04/29/18 Powder] [place]-3 Fatty Acids [[place]-3] 1,000 mg PO BID@0900,2100 01/26/18 04/29/18 Omeprazole [PriLOSEC] 20 mg PO DAILY@0601/26/18 04/29/18 Potassium Chloride [Klor-Con 10] 10 meq PO DAILY@0900 01/26/18 04/29/18 Triad Hydrophilic Wound Dress 1 applic TOPICAL Q12H 01/26/18 04/29/18 Triamterene/Hydrochlorothiazid 2 tab PO QAM@0901/26/18 04/29/18 [Triamterene-Hctz 37.5-25 mg Tb] HYDROcodone/APAP 10-325MG [[place] 1 tab PO BID PRN 04/06/18 04/29/18 10-325] Collagenase [Santyl] 1 applic TOPICAL DAILY 04/25/18 04/29/18 Lisinopril [Zestril] 10 mg PO DAILY@0904/25/18 04/29/18 Sodium Chloride [[place]] 1 spray EA NOSTRIL Q8H PRN 04/25/18 04/29/18 Spironolactone [Aldactone] 25 mg PO DAILY@0604/25/18 04/29/18 ALPRAZolam [Xanax] 0.25 mg PO Q12H PRN 04/29/18 04/29/18 Previous Rx's Medication Instructions Recorded Carvedilol [Coreg] 3.125 mg PO BID-W/MEALS #60 tab 04/19/18 Allergies Allergy/AdvReac Type Severity Reaction Status Date / Time codeine Allergy Unknown Verified 04/29/18 15:19 Sulfa (Sulfonamide Allergy Unknown Verified 04/29/18 15:19 Antibiotics) Review of Systems ROS Statement: Those systems with pertinent positive or pertinent negative responses have been documented in the HPI. ROS Other: All systems not noted in ROS Statement are negative. 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 Diabetes mellitus, hypertension, hyperlipidemia, acid reflux, rheumatoid arthritis, seizure disorder, hypothyroidism and most recently found to be having an ischemic cardiomyopathy with an ejection fraction of 20-25%. She also has chronic back pain, vitamin D deficiency, gout, ALLERGIC rhinitis, previous wounds in the Buttock and upper thighs, frequent falls, and debility in general History of Any Multi-Drug Resistant Organisms: None Reported Past Surgical History: Orthopedic Surgery, Tonsillectomy Additional Past Surgical History / Comment(s): right hip replacement, d&c, colonoscopy Past Anesthesia/Blood Transfusion Reactions: No Reported Reaction Past Psychological History: No Psychological Hx Reported Smoking Status: Never smoker Past Alcohol Use History: None Reported Past Drug Use History: None Reported - Past Family History Mother Family Medical History: Pneumonia, Rheumatoid Arthritis (RA) Additional Family Medical History / Comment(s): from complications of pne at age 56 Father Family Medical History: Congestive Heart Failure (CHF), Diabetes Mellitus Additional Family Medical History / Comment(s): at age 63 General Exam Limitations: altered mental status General appearance: alert, in no apparent distress Head exam: Present: atraumatic, normocephalic, normal inspection Eye exam: Present: normal appearance, PERRL, EOMI. Absent: scleral icterus, conjunctival injection, periorbital swelling Neck exam: Present: normal inspection, full ROM. Absent: tenderness, meningismus, lymphadenopathy Respiratory exam: Present: normal lung sounds bilaterally. Absent: respiratory distress, wheezes, rales, rhonchi, stridor Cardiovascular Exam: Present: regular rate, normal rhythm, normal heart sounds. Absent: systolic murmur, diastolic murmur, rubs, gallop, clicks Extremities exam: Present: normal inspection, full ROM, normal capillary refill. Absent: tenderness, pedal edema, joint swelling, calf tenderness Neurological exam: Present: alert, CN II-XII intact. Absent: oriented X3 Skin exam: Present: warm, dry, intact, normal color. Absent: rash Course Vital Signs 04/29/18 15:09 Temperature 97.2 F L Pulse Rate 77 Respiratory 24 Rate Blood Pressure 134/59 O2 Sat by Pulse 99 Oximetry Medical Decision Making - Medical Decision Making 73-year-old female presented emergency department from residential for fall. Patient has CT of her head and neck chest x-ray and pelvis there are no acute findings are chronic old changes noted. Patient will be discharged at this time return parameters were discussed. Disposition Clinical Impression: Fall Disposition: HOME SELF-CARE Condition: Stable Instructions: Fall Prevention (ED) Additional Instructions: Please return to the Emergency Department if symptoms worsen or any other concerns. Is patient prescribed a controlled substance at d/c from ED?: No Referrals: Wil Jimenez MD [Primary Care Provider] - 1-2 days Time of Disposition: 16:15
[2018-04-29 15:35] VITALS: PULSE 77
--- NOTE | 2018-04-29 15:54 | CT ---
EXAMINATION TYPE: CT brain cspine wo con DATE OF EXAM: 04/29/2018 COMPARISON: Head and neck CT 06/22/2014 HISTORY: Fall today, trauma and pain CT DLP: 2526.5 mGycm Automated exposure control for dose reduction was used. TECHNIQUE: CT scan of the head and cervical spine are performed without contrast. FINDINGS: There is no acute intracranial hemorrhage, mass effect, or midline shift identified. Larg e area of prior infarct in the distribution of the middle cerebral artery on the left is again noted with ex vacuo phenomenon of the left lateral ventricle, corresponding atrophy of the left cerebral pe duncle, there is cerebral vascular calcifications noted incidentally. There has been interval develop ment of low attenuation in left frontal lobe which was not seen on prior exam suggesting a interval c erebral vascular accident. The ventricles and sulci are within normal limits in size. The globes are intact and the visualized sinuses are clear, inflammatory change present in the temporal bones as on prior. Cervical spine is visualized in its entirety from C1 through upper thoracic levels and demonstrates s table alignment without evidence of acute fracture or dislocation. Multilevel spondylosis, vacuum phe nomenon, loss of disc height at the intervertebral levels again noted, there is multilevel facet arth ropathy and foraminal encroachment. Spinal stenosis changes are again seen. Prevertebral soft tissue appears within normal limits. The C1-C2 articulation is unremarkable. Dense vascular calcifications present along the carotid artery distribution. Within the left parotid gland there is a soft tissue m ass as on prior is indeterminate measuring 1 cm in short axis. Marked degenerative changes at the nirmala rnoclavicular joints. Stable findings. IMPRESSION: 1. There is no acute fracture or dislocation evident in the cervical spine. 2. No acute intracranial hemorrhage, mass effect, or midline shift is seen. 3. Additional findings above
--- NOTE | 2018-04-29 15:56 | XR ---
EXAMINATION TYPE: XR chest 1V DATE OF EXAM: 04/29/2018 COMPARISON: Prior chest 04/12/2018 HISTORY: Cough and congestion TECHNIQUE: Single frontal view of the chest is obtained. FINDINGS: Lung volumes are low and the patient is rotated. There is improvement in the interstitium in aeration within the lungs. Heart remains enlarged. There is no evident pneumothorax or pleural eff usion. Bandlike area of increased density in the left midlung may reflect atelectasis or scarring. No evident fracture. IMPRESSION: Stable cardiomegaly. Improvement in patient's volume status. Follow-up as indicated.
--- NOTE | 2018-04-29 15:57 | XR ---
AP pelvis HISTORY: Trauma and pain Frontal view of the pelvis submitted on 2 images Correlated to prior exam 01/26/2018 Patient shows postoperative change to the right proximal femur. Bone mineralization is reduced. Align ment and joint spaces are maintained. IMPRESSION: No acute fracture or dislocation is evident. Follow-up as indicated.
[2018-04-29 16:59] VITALS: BP 144/86; RESP 18; TEMP 97.1
== END 2018-04-29 16:59 | disposition home or self-care (01) ==
LOC: EC 15:05
DX: Z04.3 Encounter for examination and observation following other accident (principal); M54.9 Dorsalgia, unspecified; G89.29 Other chronic pain; K21.9 Gastro-esophageal reflux disease without esophagitis; E78.5 Hyperlipidemia, unspecified; I10 Essential (primary) hypertension; G40.909 Epilepsy, unspecified, not intractable, without status epilepticus; E03.9 Hypothyroidism, unspecified; E55.9 Vitamin D deficiency, unspecified; M10.9 Gout, unspecified; I25.5 Ischemic cardiomyopathy; Z96.651 Presence of right artificial knee joint; Z86.73 Personal history of transient ischemic attack (TIA), and cerebral infarction without residual deficits; Z79.82 Long term (current) use of aspirin; Z79.51 Long term (current) use of inhaled steroids; Z79.899 Other long term (current) drug therapy; Z88.5 Allergy status to narcotic agent; Z88.2 Allergy status to sulfonamides; W05.0XXA Fall from non-moving wheelchair, initial encounter; Y92.129 Unspecified place in nursing home as the place of occurrence of the external cause
CPT/HCPCS: 70450; 71045; 72125; 72170; 99284